=== PATIENT | male | born 1985 | race Two or more races ===

== ENCOUNTER 2017-11-02 10:15 | Emergency (ER) | payer MEDICAID ==
[2017-11-02] MEDS ORDERED: DIVALPROEX SODIUM 250 MG TABLET.DR PO ONE (10:59)
[2017-11-02] MEDS ORDERED: LORAZEPAM INJ 2 MG/1 ML VIAL IM ONE (11:21)
--- NOTE | 2017-11-02 11:48 | ER Document Report ---
ED General - General Chief Complaint: Psych Problem Stated Complaint: BEHAVIORAL ISSUES Time Seen by Provider: 11/02/17 10:35 Notes: Patient with history of mental retardation. Lives at an assisted living facility. Has become combative as of recent hitting himself in the head more frequently. Multiple contusions on face. Right periorbital contusions. Recently was stopped on his Depakote. Mother thought that he was oversedated. Since that time he has had increased amounts of outbursts. Patient is nonverbal. No other issues. No reported abnormalities with his vital signs her vital signs are very difficult to obtain in this patient. TRAVEL OUTSIDE OF THE [place] IN LAST 30 DAYS: No - Related Data Allergies/Adverse Reactions: No Known Allergies Allergy (Unverified 11/02/17 10:23) Home Medications: Current Home Medications Clonazepam 1 mg PO PRN PRN 11/02/17 [History] Clonazepam 1 mg PO QAM 11/02/17 [History] Hydroxyzine HCl 50 mg PO BID 11/02/17 [History] Oxcarbazepine [Trileptal Susp 300 mg/5 ml 250 ml/Bottle] 60 mg PO BID 11/02/17 [ History] Temazepam 30 mg PO PRN PRN 11/02/17 [History] Thioridazine HCl 100 mg PO TID 11/02/17 [History] Trazodone HCl 100 mg PO QAM 11/02/17 [History] Past Medical History - General Information source[facility], Outside Facility Records Cannot obtain history due to: Mentally challenged - Social History Smoking Status: Never Smoker Chew tobacco use (# tins/day): No Frequency of alcohol use: None Drug Abuse: None Family History: Reviewed & Not Pertinent Patient has suicidal ideation: No Patient has homicidal ideation: No Neurological Medical History: Reports: Hx Seizures Renal/ Medical History: Denies: Hx Peritoneal Dialysis Review of Systems - Review of Systems -: Yes ROS unobtainable due to patient's medical condition Physical Exam - Vital signs Vitals: Temp Pulse Resp BP Pulse Ox 97.7 F 110 H 24 H 110/84 100 11/02/17 10:27 11/02/17 10:27 11/02/17 10:27 11/02/17 10:27 11/02/17 10:27 Interpretation: Normal - General General appearance: Appears well, Alert Notes: Patient with obvious mental retardation. Screaming. Hitting himself in the face and head - HEENT Head: Other - Multiple contusions on the scalp. Large contusion on the right temporal scalp. Eyes: Periorbital ecchymosis Pupils: PERRL - Respiratory Respiratory status: No respiratory distress Chest status: Nontender Breath sounds: Normal Chest palpation: Normal - Cardiovascular Rhythm: Regular Heart sounds: Normal auscultation Murmur: No - Abdominal Inspection: Normal Distension: No distension Bowel sounds: Normal Tenderness: Nontender Organomegaly: No organomegaly - Back Back: Normal, Nontender - Extremities General upper extremity: Normal inspection, Nontender, Normal color, Normal ROM , Normal temperature General lower extremity: Normal inspection, Nontender, Normal color, Normal ROM , Normal temperature, Normal weight bearing. No: Gene's sign - Neurological Neuro grossly intact: Yes Cognition: Normal Gagan Coma Scale Eye Opening: Spontaneous - Psychological Associated symptoms: Normal affect, Normal mood - Skin Skin Temperature: Warm Skin Moisture: Dry Skin Color: Normal Course - Re-evaluation Re-evalutation: 11/02/17 11:48 Give him a dose of Ativan as well as Depakote at this time, CT head, reassess. 11/02/17 13:11 Patient coming down. No significant injuries seen on CT. Recommend they restart Depakote as previous. Will DC. - Vital Signs Vital signs: Temp Pulse Resp BP Pulse Ox 97.7 F 110 H 24 H 110/84 100 11/02/17 10:59 11/02/17 10:59 11/02/17 10:59 11/02/17 10:59 11/02/17 10:59 Discharge - Discharge Clinical Impression: Scalp contusion Qualifiers: Encounter type: initial encounter Qualified Code(s): S00.03XA - Contusion of scalp, initial encounter Ecchymosis of right eye Qualifiers: Encounter type: initial encounter Qualified Code(s): S05.11XA - Contusion of eyeball and orbital tissues, right eye, initial encounter Disposition: HOME-ASSISTED LIVING Instructions: Contusion ([facility]), Head Injury Precautions ([facility]) Additional Instructions: Please restart the Depakote as previous prescribed please follow-up with your neurologist. If symptoms get worse please return.
--- NOTE | 2017-11-02 12:32 | RADIOLOGY REPORT (SQ) ---
EXAM DESCRIPTION: CT HEAD WITHOUT COMPLETED DATE/TIME: 11/02/2017 12:05 pm REASON FOR STUDY: contussion, falls COMPARISON: None. TECHNIQUE: Axial images acquired through the brain without intravenous contrast. Images reviewed wi th bone, brain and subdural windows. Images stored on PACS. All CT scanners at this facility use dose modulation, iterative reconstruction, and/or weight based d osing when appropriate to reduce radiation dose to as low as reasonably achievable (ALARA). [facility]: Dose Right [facility]: CareDose [facility]: Dose Right [facility]: Teradose 4D [facility]: Smart [employer] RADIATION DOSE: CT Rad equipment meets quality standard of care and radiation dose reduction techniq ues were employed. CTDIvol: 64.6 mGy. DLP: 1421 mGy-cm. mGy. LIMITATIONS: None. FINDINGS: VENTRICLES: Normal size and contour. CEREBRUM: No masses. No hemorrhage. No midline shift. No evidence for acute infarction. Normal gra y/white matter differentiation. No areas of low density in the white matter. CEREBELLUM: No masses. No hemorrhage. No alteration of density. No evidence for acute infarction. EXTRAAXIAL SPACES: No fluid collections. No masses. ORBITS AND GLOBE: No intra- or extraconal masses. Normal contour of globe without masses. CALVARIUM: No fracture. PARANASAL SINUSES: No fluid or mucosal thickening. SOFT TISSUES: Right frontotemporal scalp hematoma. No underlying skull fracture or acute intracrania l hemorrhage. OTHER: No other significant finding. IMPRESSION: Right frontotemporal scalp hematoma. No underlying skull fracture or acute intracranial hemorrhage EVIDENCE OF ACUTE STROKE: NO. COMMENT: Quality ID # [id number]: Final reports with documentation of one or more dose reduction techniques (e.g., Automated exposure control, adjustment of the mA and/or kV according to patient size, use of iterative reconstruction technique) TECHNICAL DOCUMENTATION: JOB ID: [id number] [employer]- All Rights Reserved
[2017-11-02 13:25] VITALS: BP 116/74
== END 2017-11-02 13:50 | disposition home health service (06) ==
LOC: ER 10:15
DX: S00.03XA Contusion of scalp, initial encounter (principal); S05.11XA Contusion of eyeball and orbital tissues, right eye, initial encounter; F79 Unspecified intellectual disabilities; Z79.899 Other long term (current) drug therapy; W51.XXXA Accidental striking against or bumped into by another person, initial encounter
CPT/HCPCS: 99284; 96372; 70450; J2060; J3490

== ENCOUNTER → 2018-02-08 | Outpatient (CLI) | payer MEDICAID ==
[2018-02-08 08:59] LABS: HEMATOCRIT 42.7 % (37.9-51.0); HEMOGLOBIN 14.4 g/dL (13.5-17.0); MEAN CORPUSCULAR HEMOGLOBIN 28.2 pg (27.0-33.4); MEAN CORPUSCULAR HGB CONC 33.6 g/dL (32.0-36.0); MEAN CORPUSCULAR VOLUME 84 fl (80-97); PLATELET COUNT 221 10^3/uL (150-450); RED CELL DISTRIBUTION WIDTH 15.3 % (11.5-14.0); WHITE BLOOD COUNT 4.3 10^3/uL (4.0-10.5)
[2018-02-08 09:26] LABS: ALANINE AMINOTRANSFERASE 36 U/L (21-72); ALBUMIN 4.5 g/dL (3.5-5.0); ALKALINE PHOSPHATASE 85 U/L (38-126); ANION GAP 11 (5-19); ASPARTATE AMINO TRANSFERASE 29 U/L (17-59); BILIRUBIN,DIRECT 0.2 mg/dL (0.0-0.4); BILIRUBIN,TOTAL 0.2 mg/dL (0.2-1.3); BLOOD UREA NITROGEN 8 mg/dL (7-20); CALCIUM 10.1 mg/dL (8.4-10.2); CARBON DIOXIDE 30 mmol/L (22-30); CHLORIDE 97 mmol/L (98-107); CHOLESTEROL 137.47 mg/dL (0-200); GLUCOSE 89 mg/dL (75-110); POTASSIUM 4.9 mmol/L (3.6-5.0); SODIUM 137.5 mmol/L (137-145); TOTAL PROTEIN 7.9 g/dL (6.3-8.2); TRIGLYCERIDES 56 mg/dL (<150)
[2018-02-08 09:34] LABS: ABSOLUTE LYMPHOCYTES# (MANUAL) 1.2 10^3/uL (0.5-4.7); ABSOLUTE MONOCYTES # (MANUAL) 0.7 10^3/uL (0.1-1.4); ABSOLUTE NEUTROPHILS# (MANUAL) 2.3 10^3/uL (1.7-8.2); BASOPHILS % (MANUAL) 0 % (0-2); EOSINOPHILS % (MANUAL) 0 % (0-6); LYMPHOCYTES % (MANUAL) 27 % (13-45); MONOCYTES % (MANUAL) 17 % (3-13); OVALOCYTES 1+; PLATELET COMMENT ADEQUATE; POIKILOCYTOSIS 1+; POLYCHROMASIA SLIGHT; SEGMENTED NEUTROPHILS % (MAN) 54 % (42-78); TOTAL CELLS COUNTED 100; TOXIC GRANULATION SLIGHT; TOXIC VACUOLATION PRESENT
[2018-02-08 09:37] LABS: DIRECT LDL 38 mg/dL (<100)
== END ==
LOC: OD 08:19
PROVIDERS: ATTEND Physician Assistant
DX: F84.0 Autistic disorder (principal); Z79.899 Other long term (current) drug therapy
CPT/HCPCS: 36415; 80053; 80061; 80164; 83036; 85025

== ENCOUNTER 2018-03-05 08:57 | Emergency (ER) | payer MEDICAID ==
[2018-03-05] MEDS ORDERED: LIDOCAINE 1% INJ-PF (10 MG/ML) 30 ML SDV INJ ONE (09:17)
--- NOTE | 2018-03-05 09:24 | ER Document Report ---
ED Fall - General Chief Complaint: Fall Stated Complaint: FALL HEAD INJURY Time Seen by Provider: 03/05/18 09:11 Mode of Arrival: Ambulatory Information source: Outside Facility Records Cannot obtain history due to: Dementia, Mentally challenged TRAVEL OUTSIDE OF THE [place] IN LAST 30 DAYS: No - HPI Occurred: Just prior to arrival Where: Indoors, Other Context: Tripped Associated symptoms: None Location of injury/pain: Face Quality of pain: Achy Severity: Moderate Pain Level: 3 - Related data Allergies/Adverse Reactions: No Known Allergies Allergy (Unverified 11/02/17 10:23) Past Medical History - General Information source: Emergency Med Personnel Cannot obtain history due to: Dementia, Mentally challenged - Social History Smoking Status: Never Smoker Cigarette use (# per day): No Chew tobacco use (# tins/day): No Smoking Education Provided: No Frequency of alcohol use: None Drug Abuse: None Lives with: Other Family History: Reviewed & Not Pertinent Patient has suicidal ideation: No Patient has homicidal ideation: No - Past Medical History Cardiac Medical History: Reports: None Pulmonary Medical History: Reports: None EENT Medical History: Reports: None Neurological Medical History: Reports: Hx Seizures Endocrine Medical History: Reports: None Renal/ Medical History: Reports: None Malignancy Medical History: Reports None GI Medical History: Reports: None Musculoskeltal Medical History: Reports None Skin Medical History: Reports None Psychiatric Medical History: Reports: Hx Dementia Traumatic Medical History: Reports: None Infectious Medical History: Reports: None Surgical Hx: Negative Past Surgical History: Reports: None - Immunizations Immunizations up to date: Yes Hx Diphtheria, Pertussis, Tetanus Vaccination: Yes Review of Systems - Review of Systems Constitutional: No symptoms reported EENT: Nose pain - Bruised Cardiovascular: No symptoms reported Respiratory: No symptoms reported Gastrointestinal: No symptoms reported Genitourinary: No symptoms reported Male Genitourinary: No symptoms reported Musculoskeletal: No symptoms reported Skin: Other - Laceration above the left eyebrow Hematologic/Lymphatic: No symptoms reported Neurological/Psychological: Dementia, Other - Agitation which is his norm -: Yes All other systems reviewed and negative Physical Exam - Vital signs Vitals: Pulse Resp BP Pulse Ox 84 24 H 118/72 97 03/05/18 09:01 03/05/18 09:01 03/05/18 09:01 03/05/18 09:01 Interpretation: Normal - General General appearance: Appears well, Alert - HEENT Head: Atraumatic, Abrasions, Ecchymosis, Open wounds, Tenderness Eyes: Normal Pupils: PERRL Ears: Normal External canal: Normal Tympanic membrane: Normal Sinus: Normal Nasal: Swelling, Other - Bruise to the bridge of his nose no septal hematoma dried blood in his nose Mouth/Lips: Normal Mucous membranes: Normal Pharynx: Normal Neck: Normal - Respiratory Respiratory status: No respiratory distress Chest status: Nontender Breath sounds: Normal Chest palpation: Normal - Cardiovascular Rhythm: Regular Heart sounds: Normal auscultation Murmur: No - Abdominal Inspection: Normal Distension: No distension Bowel sounds: Normal Tenderness: Nontender Organomegaly: No organomegaly - Back Back: Normal, Nontender - Extremities General upper extremity: Normal inspection, Nontender, Normal color, Normal ROM , Normal temperature General lower extremity: Normal inspection, Nontender, Normal color, Normal ROM , Normal temperature, Normal weight bearing. No: Gene's sign - Neurological Neuro grossly intact: Yes Cognition: Normal Orientation: AAOx4 Boyds Coma Scale Eye Opening: Spontaneous Boyds Coma Scale Verbal: Oriented Gagan Coma Scale Motor: Obeys Commands Gagan Coma Scale Total: 15 Speech: Normal Motor strength normal: LUE, RUE, LLE, RLE Sensory: Normal - Psychological Associated symptoms: Normal affect, Normal mood - Skin Skin Temperature: Warm Skin Moisture: Dry Skin Color: Normal Skin irregularity: Laceration - Above left eyebrow Course - Vital Signs Vital signs: Temp Pulse Resp BP Pulse Ox 84 24 H 118/72 97 03/05/18 09:01 03/05/18 09:01 03/05/18 09:01 03/05/18 09:01
[2018-03-05] MEDS ORDERED: LORAZEPAM INJ 2 MG/1 ML VIAL IM ONE (09:35)
[2018-03-05] MEDS ORDERED: DIPHENHYDRAMINE HCL 50 MG/ML VIAL IM ONE (09:35)
--- NOTE | 2018-03-05 09:38 | ER Document Report ---
ED Medical Screen (RME) - General Chief Complaint: Fall Stated Complaint: FALL HEAD INJURY Time Seen by Provider: 03/05/18 09:11 Mode of Arrival: Ambulatory Information source: Outside Facility Records Cannot obtain history due to: Dementia, Mentally challenged Notes: 32-year-old male presented to ED for fall with laceration above the left eyebrow bruising to the nose swelling to the bridge of the nose. Caregiver states that he is acting the same as he always does he is alert very confused very agitated thrashing out. Abrasion to the left knee. Attempted CT of neck and face without success will need sedation to have CT completed I have greeted and performed a rapid initial assessment of this patient. A comprehensive ED assessment and evaluation of the patient, analysis of test results and completion of medical decision making process will be conducted by an additional ED providers. TRAVEL OUTSIDE OF THE [place] IN LAST 30 DAYS: No - Related Data Allergies/Adverse Reactions: No Known Allergies Allergy (Unverified 11/02/17 10:23) Past Medical History Neurological Medical History: Reports: Hx Seizures Renal/ Medical History: Denies: Hx Peritoneal Dialysis Physical Exam - Vital signs Vitals: Pulse Resp BP Pulse Ox 84 24 H 118/72 97 03/05/18 09:01 03/05/18 09:01 03/05/18 09:01 03/05/18 09:01 Course - Vital Signs Vital signs: Temp Pulse Resp BP Pulse Ox 84 24 H 118/72 97 03/05/18 09:01 03/05/18 09:01 03/05/18 09:01 03/05/18 09:01
[2018-03-05] MEDS ORDERED: HALOPERIDOL LACTATE INJ 5 MG/1 ML VIAL IM ONE (10:17)
[2018-03-05] MEDS ORDERED: DIAZEPAM INJ 10 MG/2 ML DISP.SYRIN IM ONE (11:01)
--- NOTE | 2018-03-05 11:04 | ER Document Report ---
ED General - General Chief Complaint: Fall Stated Complaint: FALL HEAD INJURY Time Seen by Provider: 03/05/18 09:11 Mode of Arrival: Ambulatory Information source: Patient, Friend - Caregivers Cannot obtain history due to: Mentally challenged Notes: 32-year-old male history of mental retardation care facility with concerns of a fall. Patient noted to have a laceration to the left upper face. Per caregivers tetanus is up-to-date no other concerns TRAVEL OUTSIDE OF THE [place] IN LAST 30 DAYS: No - HPI Onset: Just prior to arrival Onset/Duration: Sudden Quality of pain: No pain Severity: Mild Pain Level: Denies Associated symptoms: Other Exacerbated by: Denies Relieved by: Denies Similar symptoms previously: No Recently seen / treated by doctor: No - Related Data Allergies/Adverse Reactions: No Known Allergies Allergy (Unverified 11/02/17 10:23) Past Medical History - General Information source: Outside Facility Records Cannot obtain history due to: Mentally challenged - Social History Smoking Status: Never Smoker Cigarette use (# per day): No Chew tobacco use (# tins/day): No Smoking Education Provided: No Family History: Reviewed & Not Pertinent Patient has suicidal ideation: No Patient has homicidal ideation: No Neurological Medical History: Reports: Hx Seizures Renal/ Medical History: Denies: Hx Peritoneal Dialysis Review of Systems - Review of Systems Notes: PHYSICAL EXAMINATION: GENERAL: Well-appearing, well-nourished and in no acute distress. HEAD: Left supraorbital laceration EYES: Pupils equal round and reactive to light, extraocular movements intact, sclera anicteric, conjunctiva are normal. ENT: Nares patent, oropharynx clear without exudates. Moist mucous membranes. NECK: Normal range of motion, supple without lymphadenopathy LUNGS: Breath sounds clear to auscultation bilaterally and equal. No wheezes rales or rhonchi. HEART: Regular rate and rhythm without murmurs ABDOMEN: Soft, nontender, nondistended abdomen. No guarding, no rebound. No masses appreciated. Musculoskeletal: Normal range of motion, no pitting or edema. No cyanosis. NEUROLOGICAL: Baseline mentation PSYCH: Baseline agitation SKIN: 5 cm laceration with hematoma over the left frontal supraorbital region -: Yes ROS unobtainable due to patient's medical condition Physical Exam - Vital signs Vitals: Pulse Resp BP Pulse Ox 84 24 H 118/72 97 03/05/18 09:01 03/05/18 09:01 03/05/18 09:01 03/05/18 09:01 Course - Re-evaluation Re-evalutation: 03/05/18 11:01 Is still difficult to calm the patient down, he is starting to become little more drowsy but caregiver has to hold him down, I will give further medications to help sedate him 03/05/18 11:33 I am unable to sedate the patient we will do conscious sedation 03/05/18 15:44 Patient was actually able to be sedated with medication, CT noted only chronic changes, the laceration was repaired with Dermabond After performing a Medical Screening Examination, I estimate there is LOW risk for OPEN FRACTURE, COMPARTMENT SYNDROME, TENDON RUPTURE, ACUTE NEUROVASCULAR INJURY, or RETAINED FOREIGN BODY, thus I consider the discharge disposition reasonable. Also, there is no evidence or peritonitis, sepsis, or toxicity. I have reevaluated this patient multiple times and no significant life threatening changes are noted. The patients caregiver and I have discussed the diagnosis and risks, and we agree with discharging home with close follow-up with the understanding that symptoms and presentations can change. We also discussed returning to the Emergency Department immediately if new or worsening symptoms occur. We have discussed the symptoms which are most concerning (e.g., changing or worsening pain, fever, numbness, weakness, cool or painful digits) that necessitate immediate return. 03/05/18 15:45 - Vital Signs Vital signs: Temp Pulse Resp BP Pulse Ox 84 14 109/78 100 03/05/18 09:01 03/05/18 14:01 03/05/18 14:01 03/05/18 12:01 - Diagnostic Test Radiology reviewed: Image reviewed - CT head without contrast notes no acute changes, Reports reviewed Procedures - Laceration/Wound Repair Left Face Time completed: 15:00 Wound length (cm): 5 Wound's Depth, Shape: Superficial Laceration pre-procedure: Sterile PPE donned, Sterile drapes applied Wound explored: Clean, No foreign body removed Wound Debrided: Minimal Wound Repaired With: Dermabond Post-procedure wound care: Sterile dressing applied Post-procedure NV exam normal: Yes Complications: No Discharge - Discharge Clinical Impression: left forehead laceration Facial injury Qualifiers: Encounter type: initial encounter Qualified Code(s): S09.93XA - Unspecified injury of face, initial encounter Condition: Stable Disposition: HOME, SELF-CARE Additional Instructions: Please return immediately if there is any sign of infection or any other concerns Referrals: CODY POTTER MD [Primary Care Provider] - Follow up as needed
[2018-03-05] MEDS ORDERED: PROPOFOL INJ 200 MG/20 ML VIAL IV ONE (11:33)
--- NOTE | 2018-03-05 13:02 | RADIOLOGY REPORT (SQ) ---
EXAM DESCRIPTION: CT FACIAL AREA WITHOUT COMPLETED DATE/TIME: 03/05/2018 12:36 pm REASON FOR STUDY: fall hit face COMPARISON: None. TECHNIQUE: Noncontrasted images through the facial bones and orbits windowed for bone and soft tissu e. Additional coronal and sagittal reconstructed images reviewed. All images stored on PACS. All CT scanners at this facility use dose modulation, iterative reconstruction, and/or weight based d osing when appropriate to reduce radiation dose to as low as reasonably achievable (ALARA). [facility]: Dose Right [facility]: CareDose [facility]: Dose Right [facility]: Teradose 4D [facility]: [employer] RADIATION DOSE: 566.2mGy. LIMITATIONS: None. FINDINGS: FACIAL BONES: Old posttraumatic deformity of the nasal bones. No acute fracture identifie d. ORBITS: Intact. No fracture. Symmetric intact globes and retroorbital soft tissues. PARANASAL SINUSES: Clear. No significant mucosal thickening, mass or fluid. No nasal polyps. Maxill brandy sinus outlets are patent. SOFT TISSUES: Small submental nodes noted. INFERIOR BRAIN: Limited view. No acute findings. OTHER: There is a bone density projected the lateral to the body of the mandible on the left which co uld represent old posttraumatic change or exostosis. IMPRESSION: Exostosis versus old posttraumatic deformity from body of left mandible. Otherwise, nor mal CT of the facial bones. TECHNICAL DOCUMENTATION: JOB ID: [id number] Quality ID # [id number]: Final reports with documentation of one or more dose reduction techniques (e.g., Au tomated exposure control, adjustment of the mA and/or kV according to patient size, use of iterative reconstruction technique) 2010 [employer]- All Rights Reserved Reading location - IP/workstation name: [email or web address]
--- NOTE | 2018-03-05 13:08 | RADIOLOGY REPORT (SQ) ---
EXAM DESCRIPTION: CT CERVICAL SPINE WITHOUT COMPLETED DATE/TIME: 03/05/2018 12:36 pm REASON FOR STUDY: fall COMPARISON: None. TECHNIQUE: Axial images acquired through the cervical spine without intravenous contrast. Images re viewed with lung, soft tissue and bone windows. Reconstructed coronal and sagittal MPR images review ed. Images stored on PACS. All CT scanners at this facility use dose modulation, iterative reconstruction, and/or weight based d osing when appropriate to reduce radiation dose to as low as reasonably achievable (ALARA). [facility]: Dose Right [facility]: CareDose [facility]: Dose Right [facility]: Teradose 4D [facility]: [employer] RADIATION DOSE: 532.3mGy. LIMITATIONS: None. FINDINGS: VERTEBRAL BODIES: Cervical spondylosis that C5-6. Otherwise no significant abnormality se en. No cervical fracture identified. DISCS: No significant disc disease. FACETS, LATERAL MASSES, POSTERIOR ELEMENTS: No fractures. No dislocation. No acute findings. HARDWARE: None in the spine. VISUALIZED RIBS: No fractures. LUNG APICES AND SOFT TISSUES: Minimal fibrotic scarring in right lung apex. OTHER: Small nonenlarged cervical nodes. . IMPRESSION: Cervical spondylosis at C5-6. Otherwise, no cervical fractures seen. TECHNICAL DOCUMENTATION: JOB ID: [id number] Quality ID # [id number]: Final reports with documentation of one or more dose reduction techniques (e.g., Au tomated exposure control, adjustment of the mA and/or kV according to patient size, use of iterative reconstruction technique) 2010 [employer]- All Rights Reserved Reading location - IP/workstation name: [email or web address]
[2018-03-05 14:03] VITALS: BP 109/78
== END 2018-03-05 14:20 | disposition home or self-care (01) ==
LOC: ER 08:57
PROC: 0HQ1XZZ Repair Face Skin, External Approach (ICD-10-PCS; principal; 2018-03-05)
DX: S01.81XA Laceration without foreign body of other part of head, initial encounter (principal); W19.XXXA Unspecified fall, initial encounter
CPT/HCPCS: 99284; 96372; 96374; 70486; 72125; 12013; J3360; J1200; J1630; J3490; J2060

== ENCOUNTER 2018-03-05 23:53 | Emergency (ER) | payer MEDICAID ==
[2018-03-06 00:19] VITALS: BP 117/91
--- NOTE | 2018-03-06 02:29 | ER Document Report ---
ED General - General Chief Complaint: Fall Stated Complaint: FALL Time Seen by Provider: 03/06/18 01:30 Cannot obtain history due to: Mentally challenged Notes: Patient is a 32-year-old male with past medical history of significant developmental delay and nonverbal status at baseline who presents with staffing concern at the [facility] that he was bleeding from the laceration over his left eyebrow and seemed to be somewhat more agitated tonight than normal. He was seen in the emergency department earlier today after a fall from standing in which she sustained head trauma and a laceration with an associated hematoma over his left forehead. Staff at the facility notes that he has not had any vomiting, apparent difficulty walking, or any major change from baseline behavior other than that he has seems somewhat more restless. He does not take any form of anticoagulation. History is otherwise limited as the patient is nonverbal at baseline. TRAVEL OUTSIDE OF THE [place] IN LAST 30 DAYS: No - Related Data Allergies/Adverse Reactions: No Known Allergies Allergy (Verified 03/05/18 23:54) Past Medical History - General Information source: Legal Guardian Cannot obtain history due to: Mentally challenged - Social History Smoking Status: Never Smoker Frequency of alcohol use: None Drug Abuse: None Lives with: Other - intermediate Family History: Reviewed & Not Pertinent Neurological Medical History: Reports: Hx Seizures Renal/ Medical History: Denies: Hx Peritoneal Dialysis Review of Systems - Review of Systems -: Yes ROS unobtainable due to patient's medical condition Physical Exam - Vital signs Vitals: Pulse Resp BP Pulse Ox 66 22 H 117/91 H 100 03/06/18 00:10 03/06/18 00:10 03/06/18 00:10 03/06/18 00:10 Interpretation: Normal Notes: PHYSICAL EXAMINATION: GENERAL: In no distress, walking around the room HEAD: Small amount of swelling to the left forehead with traumatic ecchymosis over the lateral left eyebrow EYES: Pupils equal round and reactive to light, extraocular movements intact, sclera anicteric, conjunctiva are normal. ENT: nares patent, no oral pharyngeal trauma. No hemotympanum, no Walden's sign , no raccoon eyes. NECK: No midline cervical spine tenderness. LUNGS: Breath sounds clear to auscultation bilaterally and equal. No wheezes rales or rhonchi. HEART: Regular rate and rhythm without murmurs. CHEST WALL: No ecchymosis over the chest wall. ABDOMEN: Soft, nontender, normoactive bowel sounds. No guarding, no rebound. No abdominal bruising EXTREMITIES: No long bone deformities. BACK: No midline spinal tenderness, step-offs, or deformities. NEUROLOGICAL: Ambulate around the room without any apparent difficulty. Moves all extremities spontaneously without any apparent neurologic deficit. PSYCH: Significant cognitive impairment at baseline. Nonverbal. SKIN: Warm, Dry, normal turgor, hematoma with associated abrasion of the left eyebrow as above Course - Re-evaluation Re-evalutation: 03/06/18 02:26 Patient presents with concerns of some agitation at his [facility] as well as some mild amount of bleeding from the laceration over his left eyebrow. The staff notes that he is otherwise been acting at his norm, no focal neurologic deficits., Continues to walk around like his normal. He was seen in the emergency room and earlier today had a CT of his face and cervical spine which did not show any acute findings although no CT of the head was obtained. The patient does not require CT of the brain as clinically he does not have any signs or symptoms to indicate an intracranial bleed. I suspect that the patient may have a concussion from a headache although he is noncommunicative and unable to provide history. He has been given Tylenol here and will be discharged back to his [facility] with instructions to provide Tylenol as needed for apparent discomfort and follow-up with his primary doctor. At this time will discharge with return precautions and follow-up recommendations. Verbal discharge instructions given a the bedside and opportunity for questions given. Medication warnings reviewed. Guardian is in agreement with this plan and has verbalized understanding of return precautions and the need for primary care follow-up in the next 24-72 hours. - Vital Signs Vital signs: Temp Pulse Resp BP Pulse Ox 66 22 H 117/91 H 100 03/06/18 00:10 03/06/18 00:10 03/06/18 00:10 03/06/18 00:10 Discharge - Discharge Clinical Impression: Agitation Facial laceration Qualifiers: Encounter type: initial encounter Qualified Code(s): S01.81XA - Laceration without foreign body of other part of head, initial encounter Fall Qualifiers: Encounter type: initial encounter Qualified Code(s): W19.XXXA - Unspecified fall, initial encounter Condition: Good Disposition: HOME, SELF-CARE Additional Instructions: You may give the patient 975 mg of Tylenol every 6 hours as needed for discomfort. Return if he has persistent vomiting, change in behavior, apparent localized weakness or numbness, or any other symptoms that are worrisome to you. Referrals: CODY POTTER MD [Primary Care Provider] - Follow up as needed
[2018-03-06] MEDS ORDERED: ACETAMINOPHEN 325 MG TABLET PO ONE (02:30)
== END 2018-03-06 03:07 | disposition home or self-care (01) ==
LOC: ER 23:53
DX: S01.112A Laceration without foreign body of left eyelid and periocular area, initial encounter (principal); R45.1 Restlessness and agitation; R62.50 Unspecified lack of expected normal physiological development in childhood; W19.XXXA Unspecified fall, initial encounter
CPT/HCPCS: 99283; J3490

== ENCOUNTER 2018-03-07 20:36 | Inpatient (IN) | payer MEDICAID ==
[2018-03-07] MEDS ORDERED: NORMAL SALINE 1000 ML 1,000 ML IV ONE ×2 (21:28→22:56)
[2018-03-07] MEDS ORDERED: LIDOCAINE 1% INJ-PF (10 MG/ML) 30 ML SDV INJ ONE (21:28)
[2018-03-07 22:17] LABS: ABSOLUTE LYMPHOCYTES (AUTO) 0.9 10^3/uL (0.5-4.7); ABSOLUTE MONOCYTES (AUTO) 0.7 10^3/uL (0.1-1.4); ABSOLUTE NEUT (AUTO) 2.7 10^3/uL (1.7-8.2); BASOPHILS % (AUTO) 0.1 % (0-2); EOSINOPHILS % (AUTO) 0.6 % (0-6); HEMATOCRIT 39.1 % (37.9-51.0); LYMPHOCYTES % (AUTO) 19.9 % (13-45); MEAN CORPUSCULAR HEMOGLOBIN 28.1 pg (27.0-33.4); MEAN CORPUSCULAR HGB CONC 33.2 g/dL (32.0-36.0); MEAN CORPUSCULAR VOLUME 85 fl (80-97); MONOCYTES % (AUTO) 16.9 % (3-13); PLATELET COUNT 199 10^3/uL (150-450); RED BLOOD COUNT 4.62 10^6/uL (4.35-5.55); RED CELL DISTRIBUTION WIDTH 15.6 % (11.5-14.0); SEGMENTED NEUTROPHILS % (AUTO) 62.5 % (42-78); TOTAL CELLS COUNTED % (AUTO) 100 %; WHITE BLOOD COUNT 4.4 10^3/uL (4.0-10.5)
[2018-03-07 22:23] LABS: INTERNATIONAL RATION (INR) 0.94
--- NOTE | 2018-03-07 22:26 | RADIOLOGY REPORT (SQ) ---
EXAM DESCRIPTION: CT HEAD WITHOUT COMPLETED DATE/TIME: 03/07/2018 9:58 pm REASON FOR STUDY: ms change COMPARISON: 2017. TECHNIQUE: Axial images acquired through the brain without intravenous contrast. Images reviewed wi th bone, brain and subdural windows. Additional sagittal and coronal reconstructions were generated. Images stored on PACS. All CT scanners at this facility use dose modulation, iterative reconstruction, and/or weight based d osing when appropriate to reduce radiation dose to as low as reasonably achievable (ALARA). [facility]: Dose Right [facility]: CareDose [facility]: Dose Right [facility]: Teradose 4D [facility]: Vinfolio RADIATION DOSE: mGy. LIMITATIONS: None. FINDINGS: VENTRICLES: Normal size and contour. CEREBRUM: No masses. No hemorrhage. No midline shift. No evidence for acute infarction. Normal gra y/white matter differentiation. No areas of low density in the white matter. CEREBELLUM: No masses. No hemorrhage. No alteration of density. No evidence for acute infarction. EXTRAAXIAL SPACES: No fluid collections. No masses. ORBITS AND GLOBE: No intra- or extraconal masses. Normal contour of globe without masses. CALVARIUM: No fracture. PARANASAL SINUSES: No fluid or mucosal thickening. SOFT TISSUES: Right scalp soft tissue swelling. No drainable collections. OTHER: No other significant finding. IMPRESSION: Soft tissue swelling. No acute intracranial abnormality. EVIDENCE OF ACUTE STROKE: NO. COMMENT: Quality ID # [id number]: Final reports with documentation of one or more dose reduction techniques (e.g., Automated exposure control, adjustment of the mA and/or kV according to patient size, use of iterative reconstruction technique) TECHNICAL DOCUMENTATION: JOB ID: [id number] [employer]- All Rights Reserved Reading location - IP/workstation name: [email or web address]
[2018-03-07 22:34] LABS: ALANINE AMINOTRANSFERASE 80 U/L (21-72); ALBUMIN 4.1 g/dL (3.5-5.0); ALKALINE PHOSPHATASE 76 U/L (38-126); ANION GAP 8 (5-19); ASPARTATE AMINO TRANSFERASE 96 U/L (17-59); BILIRUBIN,DIRECT 0.1 mg/dL (0.0-0.4); BILIRUBIN,TOTAL 0.1 mg/dL (0.2-1.3); BLOOD UREA NITROGEN 10 mg/dL (7-20); CALCIUM 10.6 mg/dL (8.4-10.2); CARBON DIOXIDE 36 mmol/L (22-30); CHLORIDE 101 mmol/L (98-107); CREATINE KINASE 1147 U/L (55-170); GLUCOSE 105 mg/dL (75-110); POTASSIUM 4.4 mmol/L (3.6-5.0); SODIUM 144.7 mmol/L (137-145); TOTAL PROTEIN 7.2 g/dL (6.3-8.2)
--- NOTE | 2018-03-07 22:45 | ER Document Report ---
ED General - General Chief Complaint: Rectal Bleeding Stated Complaint: RECTAL BLEEDING Time Seen by Provider: 03/07/18 21:25 Information source: Outside Facility Records TRAVEL OUTSIDE OF THE [place] IN LAST 30 DAYS: No - HPI Patient complains to provider of: bleeding from rectum Onset: Just prior to arrival Similar symptoms previously: No Recently seen / treated by doctor: Yes - here this past wednesday for falls Notes: Patient is brought in from the nursing home where he resides for rectal bleeding.After extensive discussion with the nursing home workers he also has a mental status change. Patient has severe developmental delay at baseline and is nonverbal, behaviorally challenged with aggressive behavior at times as well as self mutilation. Patient was seen here on March 05 and for falls with laceration over his left eyebrow which was repaired with Dermabond. CT was of the head was negative for any acute findings. Patient was combative and behaviorally challenged during both of those hospital stays.According to the nursing home workers the patient has become very somnolent over the last few days. On Wednesday he was ambulatory but not quite himself and he slept most of the day. Today he did get up and feed himself a little bit of breakfast but then he laid in bed all day. He has not been ambulatory since Wednesday.They do state that he fell down multiple times on Wednesday. They state that falling is usually not his norm and he is usually able to ambulate, feed himself and do activities of daily living without difficulty. They state that he is nonverbal at baseline. - Related Data Allergies/Adverse Reactions: No Known Allergies Allergy (Verified 03/05/18 23:54) Past Medical History - General Information source: Outside Facility Records - Social History Smoking Status: Unknown if Ever Smoked Chew tobacco use (# tins/day): No Frequency of alcohol use: None Drug Abuse: None Lives with: Other - [facility] Family History: Reviewed & Not Pertinent Patient has suicidal ideation: No Patient has homicidal ideation: No - Past Medical History Cardiac Medical History: Reports: None EENT Medical History: Reports: None Neurological Medical History: Reports: Hx Seizures Endocrine Medical History: Reports: None Renal/ Medical History: Reports: None. Denies: Hx Peritoneal Dialysis GI Medical History: Reports: None Psychiatric Medical History: Reports: Other - History of self abuse Past Surgical History: Reports: None Review of Systems - Review of Systems -: Yes ROS unobtainable due to patient's medical condition Physical Exam - Vital signs Vitals: Resp 13 03/07/18 20:46 - Notes Notes: PHYSICAL EXAMINATION: GENERAL:Patient is lying in the bed not interacting. HEAD: Patient has A laceration over his left eyebrow which has Dermabond. There is no signs or symptoms of infection. EYES: Pupils are equal Reactive but sluggish to light 4-3 mm.No scleral icterus. ENT: Nares patent. Moist mucous membranes. Poor dentition. + gag reflex. NECK: Normal range of motion, supple without lymphadenopathy LUNGS: Breath sounds clear to auscultation bilaterally and equal. No wheezes rales or rhonchi. HEART: Regular rate and rhythm without murmurs ABDOMEN: Soft, nontender, nondistended abdomen. No guarding, no rebound. No masses appreciated. Musculoskeletal: No cyanosis. NEUROLOGICAL: Patient is non-verbal at baseline. He does withdraw from painful stimuli. He opens his eyes spontaneously but not to verbal command. SKIN: Warm, Dry, normal turgor, no rashes noted. Patient found to have 2 cm V- shaped laceration just posterior to his anus.The anus and the sphincter are not involved.Bleeding is controlled. Course - Re-evaluation Re-evalutation: 03/08/18 00:12 Labs- All tests 24 hr 03/07/18 03/07/18 03/07/18 20:51 20:51 20:51 WBC 4.4 RBC 4.62 Hgb 13.0 L Hct 39.1 MCV 85 MCH 28.1 MCHC 33.2 RDW 15.6 H Plt Count 199 Seg Neutrophils % 62.5 Lymphocytes % 19.9 Monocytes % 16.9 H Eosinophils % 0.6 Basophils % 0.1 Absolute Neutrophils 2.7 Absolute Lymphocytes 0.9 Absolute Monocytes 0.7 Absolute Eosinophils 0.0 Absolute Basophils 0.0 PT 13.0 INR 0.94 Sodium 144.7 Potassium 4.4 Chloride 101 Carbon Dioxide 36 H Anion Gap 8 BUN 10 Creatinine 0.53 Est GFR ( Amer) > 60 Est GFR (Non-Af Amer) > 60 Glucose 105 Lactic Acid Calcium 10.6 H Magnesium 1.8 Total Bilirubin 0.1 L Direct Bilirubin 0.1 Neonat Total Bilirubin Not Reportable Neonat Direct Bilirubin Not Reportable Neonat Indirect Bili Not Reportable AST 96 H ALT 80 H Alkaline Phosphatase 76 Creatine Kinase 1147 H Troponin I Total Protein 7.2 Albumin 4.1 Urine Color Urine Appearance Urine pH Ur Specific [place] Urine Protein Urine Glucose (UA) Urine Ketones Urine Blood Urine Nitrite Urine Bilirubin Urine Urobilinogen Ur Leukocyte Esterase Urine WBC (Auto) Urine RBC (Auto) U Hyaline Cast (Auto) Urine Mucus (Auto) Urine Ascorbic Acid CSF Glucose CSF Total Protein Valproic Acid 65.5 Serum Alcohol 03/07/18 03/07/18 03/07/18 20:51 20:51 22:00 WBC RBC Hgb Hct MCV MCH MCHC RDW Plt Count Seg Neutrophils % Lymphocytes % Monocytes % Eosinophils % Basophils % Absolute Neutrophils Absolute Lymphocytes Absolute Monocytes Absolute Eosinophils Absolute Basophils PT INR Sodium Potassium Chloride Carbon Dioxide Anion Gap BUN Creatinine Est GFR ( Amer) Est GFR (Non-Af Amer) Glucose Lactic Acid 0.9 Calcium Magnesium Total Bilirubin Direct Bilirubin Neonat Total Bilirubin Neonat Direct Bilirubin Neonat Indirect Bili AST ALT Alkaline Phosphatase Creatine Kinase Troponin I < 0.012 Total Protein Albumin Urine Color Urine Appearance Urine pH Ur Specific [place] Urine Protein Urine Glucose (UA) Urine Ketones Urine Blood Urine Nitrite Urine Bilirubin Urine Urobilinogen Ur Leukocyte Esterase Urine WBC (Auto) Urine RBC (Auto) U Hyaline Cast (Auto) Urine Mucus (Auto) Urine Ascorbic Acid CSF Glucose CSF Total Protein Valproic Acid Serum Alcohol < 10 03/07/18 03/07/18 23:02 23:25 WBC RBC Hgb Hct MCV MCH MCHC RDW Plt Count Seg Neutrophils % Lymphocytes % Monocytes % Eosinophils % Basophils % Absolute Neutrophils Absolute Lymphocytes Absolute Monocytes Absolute Eosinophils Absolute Basophils PT INR Sodium Potassium Chloride Carbon Dioxide Anion Gap BUN Creatinine Est GFR ( Amer) Est GFR (Non-Af Amer) Glucose Lactic Acid Calcium Magnesium Total Bilirubin Direct Bilirubin Neonat Total Bilirubin Neonat Direct Bilirubin Neonat Indirect Bili AST ALT Alkaline Phosphatase Creatine Kinase Troponin I Total Protein Albumin Urine Color YELLOW Urine Appearance CLEAR Urine pH 6.0 Ur Specific [place] 1.024 Urine Protein NEGATIVE Urine Glucose (UA) NEGATIVE Urine Ketones NEGATIVE Urine Blood NEGATIVE Urine Nitrite NEGATIVE Urine Bilirubin NEGATIVE Urine Urobilinogen 2.0 H Ur Leukocyte Esterase NEGATIVE Urine WBC (Auto) 1 Urine RBC (Auto) 0 U Hyaline Cast (Auto) 5 Urine Mucus (Auto) RARE Urine Ascorbic Acid 20 H CSF Glucose 66 CSF Total Protein 38 Valproic Acid Serum Alcohol Chest X-Ray 05/14/18 21:26 IMPRESSION: LOW LUNG VOLUMES. NO SIGNIFICANT RADIOGRAPHIC FINDING IN THE CHEST. Head CT 03/07/18 21:28 IMPRESSION: Soft tissue swelling. No acute intracranial abnormality. EVIDENCE OF ACUTE STROKE: NO. 03/08/18 00:35 Patient now has bradycardia in the 50s with hypotension in the 70s. He is also hypothermic. At this point I am going to go ahead and give him some dexamethasone. 03/08/18 00:[address] knox 03/08/18 01:14 Blood gas did improve slightly at 7.3 for now and the CO2 was slightly decreased. Patient is tolerating BiPAP. He is on dopamine and will be admitted to the ICU.I did discuss the case with Dr. Parminder Peña. The patient is already admitted and I did call Dr. Gotti twice to discuss the patient's care. The patient did receive dexamethasone in case he has renal insufficiency in light of the fact that he had hypothermia bradycardia and hypotension. - Vital Signs Vital signs: Temp Pulse Resp BP Pulse Ox 97.7 F 60 12 87/55 L 96 03/09/18 22:32 03/09/18 20:00 03/09/18 22:32 03/09/18 22:32 03/09/18 22:32 - Laboratory Result Diagrams: 03/09/18 03:53 03/09/18 03:53 Laboratory results interpreted by me: 03/07/18 03/07/18 03/07/18 20:51 20:51 23:02 Hgb 13.0 L RDW 15.6 H Monocytes % 16.9 H Carbonic Acid ABG pH ABG pCO2 ABG HCO3 ABG Total CO2 Carbon Dioxide 36 H Calcium 10.6 H Total Bilirubin 0.1 L AST 96 H ALT 80 H Creatine Kinase 1147 H Urine Urobilinogen 2.0 H Urine Ascorbic Acid 20 H 03/07/18 23:45 Hgb RDW Monocytes % Carbonic Acid 1.95 H ABG pH 7.30 L ABG pCO2 64.8 H ABG HCO3 31.2 H ABG Total CO2 33.2 H Carbon Dioxide Calcium Total Bilirubin AST ALT Creatine Kinase Urine Urobilinogen Urine Ascorbic Acid - Diagnostic Test Radiology reviewed: Image reviewed - EKG Interpretation by Oh EKG shows normal: Sinus rhythm - 61bpm VA 135 IVCD When compared to previous EKG there are: Previous EKG unavailable Procedures - Laceration/Wound Repair Rectal Wound length (cm): 8 Wound's Depth, Shape: Superficial Laceration pre-procedure: Chloraprep applied Anesthetic type: 1% Lidocaine Volume Anesthetic (mLs): 4 Wound explored: Clean, No foreign body removed Irrigated w/ Saline (mLs): 500 Wound Repaired With: Sutures Suture Size/Type: 4:0, Ethilon Number of Sutures: 5 Layer Closure?: No Post-procedure NV exam normal: Yes - Good rectal tone status post laceration repair Complications: No Notes: 03/07/18 22:53 Patient remained calm and quiet while the laceration repair was done. He did squeeze his buttocks together when I was injecting the area with lidocaine. - Lumbar Puncture Lumbar puncture Time completed: 23:15 Consent obtained: Yes - phone consent by mom Lumbar puncture pre-procedure: Chloraprep applied, Sterile drapes applied Patient position: Lying Needle size: 22 Anesthetic type: 1% Lidocaine mL's of anesthetic: 3 Amount/type of drainage: clear Number of attempts: 2 Complications: No - Additional Procedures ABG Additional Procedures: ABG Notes: 03/07/18 23:49 Right radial area prepped with betadine. Neg Armin's test. Radial artery accessed. 0.5 cc blood obtained (not enough for testing). Pressure held for 5 minutes and bandage placed. Left radial area prepped with betadine. Negative Armin's test.guage needle introduced to left radial artery and 1.5 cc blood obtained. Pressure held for 5 minutes and bandage placed. Critical Care Note - Critical Care Note Total time excluding time spent on procedures (mins): 60 Comments: 60 minutes of critical care time spent in direct contact evaluating and reevaluating the patient, treating symptoms, reviewing labs and studies and speaking with family and consultants excluding any procedures Discharge - Discharge Clinical Impression: Mental status change, Laceration of rectum, initial encounter, Hypercarbia Hypothermia Qualifiers: Encounter type: initial encounter Qualified Code(s): T68.XXXA - Hypothermia, initial encounter Hypotension Qualifiers: Hypotension type: unspecified hypotension type Qualified Code(s): I95.9 - Hypotension, unspecified Condition: Serious Disposition: ADMITTED INPATIENT Admitting Provider: [facility] Unit Admitted: ICU
--- NOTE | 2018-03-07 22:46 | RADIOLOGY REPORT (SQ) ---
EXAM DESCRIPTION: CHEST SINGLE VIEW COMPLETED DATE/TIME: 03/07/2018 9:43 pm REASON FOR STUDY: ms change COMPARISON: None. NUMBER OF VIEWS: One view. TECHNIQUE: Single frontal radiographic view of the chest acquired. LIMITATIONS: None. FINDINGS: LUNGS AND PLEURA: Low lung volumes. No opacities, masses or pneumothorax. No pleural eff usion. MEDIASTINUM AND HILAR STRUCTURES: No masses. No contour abnormality. HEART AND VASCULAR STRUCTURES: Normal size. No evidence for failure. BONES: No acute findings. HARDWARE: None in the chest. OTHER: No other significant finding. IMPRESSION: LOW LUNG VOLUMES. NO SIGNIFICANT RADIOGRAPHIC FINDING IN THE CHEST. TECHNICAL DOCUMENTATION: JOB ID: [id number] [employer]- All Rights Reserved Reading location - IP/workstation name: [email or web address]
[2018-03-07 23:07] LABS: ALCOHOL < 10 mg/dL (NONE DETECTED)
[2018-03-07] MEDS ORDERED: LIDOCAINE 1% INJ-PF (10 MG/ML) 30 ML SDV ONE (23:13)
[2018-03-07] MEDS ORDERED: CEFTRIAXONE 2 GM/D5W RTU 2 GM/50 ML RTUPB IV ONE (23:24)
[2018-03-07 23:53] LABS: APPEARANCE,URINE CLEAR; BILIRUBIN,URINE NEGATIVE (NEGATIVE); COLOR,URINE YELLOW; GLUCOSE, URINE NEGATIVE (NEGATIVE); KETONES,URINE NEGATIVE (NEGATIVE); LEUKOCYTE ESTERASE,URINE NEGATIVE (NEGATIVE); NITRITE,URINE NEGATIVE (NEGATIVE); PROTEIN,URINE NEGATIVE (NEGATIVE); URINE SPECIFIC GRAVITY 1.024
[2018-03-07 23:57] LABS: GLUCOSE,CSF 66 mg/dL (40-70); PROTEIN,CSF 38 mg/dL (12-60)
[2018-03-08 00:06] LABS: URINE AMPHETAMINES SCREEN NEGATIVE; URINE BARBITURATES SCREEN NEGATIVE; URINE BENZODIAZEPINES SCREEN UNCONFIRMED POSITIVE; URINE COCAINE SCREEN NEGATIVE; URINE MARIJUANA (THC) SCREEN NEGATIVE; URINE METHADONE SCREEN NEGATIVE; URINE PHENCYCLIDINE SCREEN NEGATIVE
[2018-03-08] MEDS ORDERED: ACYCLOVIR SODIUM INJ/PF 500 MG/10 ML SDV IV ONE (00:07)
[2018-03-08 00:17] LABS: ARTERIAL BLOOD FIO2 ROOM AIR; ARTERIAL BLOOD H2CO3 1.95 mmol/L (1.05-1.35); ARTERIAL BLOOD HCO3 31.2 mmol/L (20-26); ARTERIAL BLOOD O2 SATURATION 95.1 % (94-98); ARTERIAL BLOOD PCO2 64.8 mmHg (35-45); ARTERIAL BLOOD PO2 84.5 mmHg (80-100); ARTERIAL BLOOD TOTAL CO2 33.2 mmol/L (23-27)
[2018-03-08 00:24] LABS: APPEARANCE ALL TUBES CLEAR; COLOR ALL TUBES COLORLESS; CSF TUBE NUMBER 4
[2018-03-08 00:25] LABS: RED BLOOD CELL,CSF 16 /uL (0-10); VOLUME TUBE 2 0.5 CC; VOLUME TUBE 3 0.5 CC
[2018-03-08 00:26] LABS: WHITE BLOOD CELL,CSF 0 /uL (0-5)
[2018-03-08] MEDS ORDERED: DEXAMETHASONE SOD PHOS INJ 10 MG/1 ML VIAL IV ONE (00:27)
[2018-03-08] MEDS ORDERED: DOPAMINE HCL/DEXTROSE 5%-WATER 800 MG/250 ML RTUINJ IV PRN (00:37)
[2018-03-08] MEDS ORDERED: DOPAMINE HCL/DEXTROSE 5%-WATER 800 MG/250 ML RTUINJ IV ONE (00:39)
[2018-03-08 00:44] LABS: APPEARANCE ALL TUBES CLEAR; COLOR ALL TUBES COLORLESS; CSF TUBE NUMBER 1; VOLUME TUBE 2 0.5 CC; VOLUME TUBE 3 0.5 CC
[2018-03-08 00:45] LABS: RED BLOOD CELL,CSF 449 /uL (0-10)
[2018-03-08 00:46] LABS: WHITE BLOOD CELL,CSF 0 /uL (0-5)
[2018-03-08] MEDS ORDERED: DEXTROSE 5%-WATER 250 ML with NOREPINEPHRINE BITARTRATE 4 MG IV PRN ×2 (01:09)
[2018-03-08 01:12] LABS: ARTERIAL BLOOD BASE EXCESS 3.3 mmol/L; ARTERIAL BLOOD FIO2 25%; ARTERIAL BLOOD H2CO3 1.84 mmol/L (1.05-1.35); ARTERIAL BLOOD HCO3 30.9 mmol/L (20-26); ARTERIAL BLOOD O2 SATURATION 98.4 % (94-98); ARTERIAL BLOOD PCO2 61.2 mmHg (35-45); ARTERIAL BLOOD PH 7.32 (7.35-7.45); ARTERIAL BLOOD PO2 133.4 mmHg (80-100); ARTERIAL BLOOD TOTAL CO2 32.8 mmol/L (23-27)
[2018-03-08] MEDS ORDERED: AMPICILLIN SODIUM/SULBACTAM NA 3 GM in NORMAL SALINE 100 ML IV SCH (01:15)
[2018-03-08] MEDS ORDERED: AMPICILLIN SOD/SULBACTAM 3 GM VIAL IV PRN (01:19)
[2018-03-08] MEDS ORDERED: NORMAL SALINE 1000 ML 1,000 ML IV PRN (01:19)
[2018-03-08] MEDS ORDERED: AMPICILLIN SODIUM/SULBACTAM NA 3 GM in NORMAL SALINE 100 ML IV ONE (01:30)
[2018-03-08 01:31] LABS: FREE T4 (FREE THYROXINE) 0.93 ng/dL (0.78-2.19)
[2018-03-08 01:38] LABS: PROTHROMBIN TIME 13.7 SEC (11.4-15.4)
[2018-03-08 01:39] LABS: PARTIAL THROMBOPLASTIN TIME 35.6 SEC (23.5-35.8)
[2018-03-08 01:41] LABS: LIPASE 196.4 U/L (23-300); PHOSPHORUS 3.1 mg/dL (2.5-4.5)
[2018-03-08 01:44] LABS: THYROID STIMULATING HORMONE 4.25 uIU/mL (0.47-4.68)
[2018-03-08] MEDS ORDERED: NOREPINEPHRINE BITARTRATE INJ/PF 4 MG/4 ML SDV IV ONE (01:55)
[2018-03-08 02:45] LABS: TROPONIN I < 0.012 ng/mL
--- NOTE | 2018-03-08 03:02 | RADIOLOGY REPORT (SQ) ---
EXAM DESCRIPTION: CT ABDOMEN AND PELVIS WITHOUT CONTRAST CLINICAL HISTORY: Hypothermia. Low blood pressure. EtOH. COMPARISON: None Available. TECHNIQUE: CT of the abdomen and pelvis without IV contrast. Evaluation of the solid organs and vasculature is suboptimal due to lack of IV contrast. DLP: 702.7 mGy-cm FINDINGS: Lung Bases: Linear left basilar opacities likely related to atelectasis. Bones: No destructive bone lesions identified. Abdomen: Liver: The liver has normal size and density. Gallbladder: No calcified gallstones. Spleen, Pancreas, and Adrenal Glands: Diffuse peripancreatic fat stranding and loss of definite pancreatic parenchyma involving the body and head of the pancreas. No well-circumscribed fluid collection. The spleen and adrenal glands are unremarkable. Kidneys: The kidneys have normal size and contour without evidence of hydronephrosis. No obstructing ureteral calculi. Vasculature: The aorta and IVC have normal caliber and position. Stomach: The stomach and duodenum have normal course. Other: No free intraperitoneal air. Possible tiny amount of free fluid. Pelvis: Bladder: Joseph catheter in the urinary bladder. Bowel: No dilated loops of large or small bowel. Appendix: Normal appendix. Pelvis: Prostate is not enlarged. IMPRESSION: 1. Findings compatible with acute pancreatitis. The parenchyma of the body and head of the pancreas is not well-visualized by CT criteria. Pancreatic necrosis is a possibility however definitive characterization is not possible without iodinated contrast. This exam was performed according to our departmental dose-optimization program, which includes automated exposure control, adjustment of the mA and/or kV according to patient size and/or use of iterative reconstruction technique.
[2018-03-08] MEDS ORDERED: VASOPRESSIN INJ 20 UNIT/1 ML VIAL ONE (03:10)
[2018-03-08] MEDS ORDERED: DEXTROSE 5%-WATER 250 ML with VASOPRESSIN 100 UNIT IV PRN ×2 (03:29)
[2018-03-08] MEDS: HEPARIN SOD (PORCINE) 5,000 UNIT/ML 1 ML SYRINGE SUBCUT SCH ×3 (05:21→22:05)
[2018-03-08 05:54] LABS: ARTERIAL BLOOD BASE EXCESS 1.3 mmol/L; ARTERIAL BLOOD FIO2 25%; ARTERIAL BLOOD H2CO3 1.56 mmol/L (1.05-1.35); ARTERIAL BLOOD HCO3 27.8 mmol/L (20-26); ARTERIAL BLOOD O2 SATURATION 98.5 % (94-98); ARTERIAL BLOOD PCO2 51.9 mmHg (35-45); ARTERIAL BLOOD PH 7.35 (7.35-7.45); ARTERIAL BLOOD TOTAL CO2 29.3 mmol/L (23-27)
[2018-03-08] MEDS: NORMAL SALINE 1000 ML 1,000 ML IV PRN ×4 (06:35→22:05)
--- NOTE | 2018-03-08 06:36 | RADIOLOGY REPORT (SQ) ---
EXAM DESCRIPTION: Single view of the chest CLINICAL HISTORY: Shortness of breath COMPARISON: 03/07/2018 FINDINGS: Single frontal view of the chest. The cardiomediastinal silhouette has normal size and contour. No consolidation, pneumothorax, or pleural effusion. No displaced rib fractures identified. Leads overlie the chest. Low lung volumes. Upper abdominal soft tissues are unremarkable. IMPRESSION: 1. No acute pulmonary process identified.
--- NOTE | 2018-03-08 08:54 | EKG REPORT ---
SEVERITY:- ABNORMAL ECG - SINUS RHYTHM NONSPECIFIC INTRAVENTRICULAR CONDUCTION DELAY INFERIOR INFARCT, OLD : Confirmed by: Oleg Coleman 08-Mar-2018 08:53:42
[2018-03-08 09:35] LABS: CREATINE KINASE MB 7.1 ng/mL (<4.55); TROPONIN I 0.022 ng/mL
[2018-03-08] MEDS: AMPICILLIN SODIUM/SULBACTAM NA 3 GM in NORMAL SALINE 100 ML IV SCH ×3 (09:41→20:42)
[2018-03-08 14:39] LABS: CREATINE KINASE MB 5.63 ng/mL (<4.55)
[2018-03-08 14:41] LABS: TROPONIN I < 0.012 ng/mL
[2018-03-08 18:48] LABS: ARTERIAL BLOOD BASE EXCESS 4.4 mmol/L; ARTERIAL BLOOD H2CO3 1.55 mmol/L (1.05-1.35); ARTERIAL BLOOD HCO3 30.3 mmol/L (20-26); ARTERIAL BLOOD O2 SATURATION 98.1 % (94-98); ARTERIAL BLOOD PCO2 51.6 mmHg (35-45); ARTERIAL BLOOD PH 7.39 (7.35-7.45); ARTERIAL BLOOD PO2 114.9 mmHg (80-100); ARTERIAL BLOOD TOTAL CO2 31.9 mmol/L (23-27)
[2018-03-08 18:52] LABS: ARTERIAL BLOOD FIO2 25%
--- NOTE | 2018-03-08 20:00 | PDOC H&P ---
History of Present Illness Admission Date/PCP: 03/08/18 00:20 CODY POTTER MD History of Present Illness: NANETTE BOND is a 32 year old male Patient is mentally challenged she is a member of a longterm he was brought from the longterm to the emergency room for evaluation of rectal bleeding. He has severe developmental delay at baseline with aggressive behavior at times as well as self-mutilation he was in the emergency room on March 05 on March 06 for falls with laceration over his left eyebrow which was repaired with Dermabond I saw him in the office yesterday when he came for follow-up after ED visit. In the emergency room he was hypothermic the blood pressure was also very low in the 70s. The emergency room physician could not figure out the etiology of the low blood pressure and the hypothermia, she called me to admit the patient to the hospital, The blood pressure was extremely low he was started on normal saline at 2 50 cc/h, IV pressors, norepinephrine and vasopressin.CT scan of the abdomen and pelvis without contrast was done, there is diffuse barry-pancreatic fat stranding and loss of definite pancreatic parenchyma involving the body, the aid of the pancreas no well circumscribed fluid collection the spleen, adrenal glands are unremarkable Past Medical History Cardiac Medical History: Reports: None EENT Medical History: Reports: None Neurological Medical History: Reports: Seizures Endocrine Medical History: Reports: None Renal/ Medical History: Reports: None GI Medical History: Reports: None Psychiatric Medical History: Reports: Other - History of self abuse Past Surgical History Past Surgical History: Reports: None Social History Lives with: Other - prison Smoking Status: Unknown if Ever Smoked Frequency of Alcohol Use: None Hx Recreational Drug Use: No Hx Prescription Drug Abuse: No Family History Family History: Reviewed & Not Pertinent Parental Family History Reviewed: Yes Children Family History Reviewed: Yes Sibling(s) Family History Reviewed.: Yes Medication/Allergy Home Medications: Clonazepam [Klonopin 1 mg Tablet] 1 mg PO BID@0800,199903/08/18 Divalproex Sodium [Depakote] 500 mg PO BID@0800,199903/08/18 Hydroxyzine HCl [Atarax 50 mg Tablet] 50 mg PO BID@08,199903/08/18 Methylcellulose [Fiber Laxative] 1,000 mg PO QID 03/08/18 Naltrexone 50mg 50 mg PO QAM 03/08/18 Oxcarbazepine [Trileptal] 600 mg PO BID@0800,199903/08/18 Temazepam [Restoril] 30 mg PO QPM@199903/08/18 Thioridazine HCl 100 mg PO TID@0800,1400,199903/08/18 Trazodone HCl [Desyrel] 100 mg PO QHS 03/08/18 Allergies/Adverse Reactions: No Known Allergies Allergy (Verified 03/05/18 23:54) Review of Systems ROS unobtainable: Due to mental status Physical Exam Vital Signs: Temp Pulse Resp BP Pulse Ox 97.0 F 72 13 99/60 L 99 03/08/18 18:21 03/08/18 18:00 03/08/18 18:21 03/08/18 18:21 03/08/18 18:21 Intake & Output 03/07/18 03/08/18 03/09/18 06:59 06:59 06:59 Intake Total 938 1885 Output Total 600 2620 Balance 338 -735 Weight 74.7 kg General appearance: PRESENT: other - Patient is acutely ill looking, is nonverbal Eye exam: PRESENT: conjunctiva pale Respiratory exam: PRESENT: clear to auscultation delores Cardiovascular exam: PRESENT: +S1, +S2 GI/Abdominal exam: PRESENT: soft Neurological exam: PRESENT: altered Results Laboratory Results: 03/08/18 03/08/18 03/08/18 01:00 01:25 05:44 Carbonic Acid 1.84 H 1.56 H HCO3/H2CO3 Ratio 16:1 17:1 ABG pH 7.32 L 7.35 ABG pCO2 61.2 H 51.9 H ABG pO2 133.4 H 134.0 H ABG HCO3 30.9 H 27.8 H ABG O2 Saturation 98.4 H 98.5 H ABG Base Excess 3.3 1.3 FiO2 25% 25% Ammonia 23.4 03/08/18 18:25 Carbonic Acid 1.55 H HCO3/H2CO3 Ratio 19:1 ABG pH 7.39 ABG pCO2 51.6 H ABG pO2 114.9 H ABG HCO3 30.3 H ABG O2 Saturation 98.1 H ABG Base Excess 4.4 FiO2 25% Ammonia 03/08/18 03/08/18 03/08/18 01:25 01:25 08:50 Creatine Kinase 870 H 562 H CK-MB (CK-2) 11.10 H Troponin I < 0.012 03/08/18 03/08/18 03/08/18 08:50 13:35 13:35 Creatine Kinase 479 H CK-MB (CK-2) 7.10 H 5.63 H Troponin I 0.022 < 0.012 Impressions: Head CT 03/07/18 21:28 IMPRESSION: Soft tissue swelling. No acute intracranial abnormality. EVIDENCE OF ACUTE STROKE: NO. Abdomen/Pelvis CT 03/08/18 00:00 IMPRESSION: 1. Findings compatible with acute pancreatitis. The parenchyma of the body and head of the pancreas is not well-visualized by CT criteria. Pancreatic necrosis is a possibility however definitive characterization is not possible without iodinated contrast. This exam was performed according to our departmental dose-optimization program, which includes automated exposure control, adjustment of the mA and/or kV according to patient size and/or use of iterative reconstruction technique. Chest X-Ray 03/08/18 06:00 IMPRESSION: 1. No acute pulmonary process identified. Assessment & Plan - Diagnosis (1) Hypotension Qualifiers: Hypotension type: unspecified hypotension type Qualified Code(s): I95.9 - Hypotension, unspecified Is this a current diagnosis for this admission?: Yes Plan: Patient will continue IV fluid, normal saline, at 2 50 cc/h (2) Hypothermia Qualifiers: Encounter type: initial encounter Qualified Code(s): T68.XXXA - Hypothermia , initial encounter Is this a current diagnosis for this admission?: Yes Plan: Hypothymia could be secondary to severe sepsis, he will empirically be treated with Unasyn, since the most likely source of infection is the pancreas (3) Acute pancreatitis Qualifiers: Pancreatitis type: unspecified pancreatitis type Acute pancreatitis complication: unspecified Qualified Code(s): K85.90 - Acute pancreatitis without necrosis or infection, unspecified Is this a current diagnosis for this admission?: Yes Plan: The findings on the CT scan could not completely rule out necrotizing pancreatitis because it was without contrast study
[2018-03-09] MEDS: AMPICILLIN SODIUM/SULBACTAM NA 3 GM in NORMAL SALINE 100 ML IV SCH ×4 (02:06→20:52)
[2018-03-09] MEDS: NORMAL SALINE 1000 ML 1,000 ML IV PRN ×3 (04:05→22:08)
[2018-03-09 04:20] LABS: ABSOLUTE LYMPHOCYTES (AUTO) 1.5 10^3/uL (0.5-4.7); ABSOLUTE MONOCYTES (AUTO) 1.3 10^3/uL (0.1-1.4); ABSOLUTE NEUT (AUTO) 5.2 10^3/uL (1.7-8.2); BASOPHILS % (AUTO) 0.2 % (0-2); HEMATOCRIT 32.6 % (37.9-51.0); LYMPHOCYTES % (AUTO) 18.5 % (13-45); MEAN CORPUSCULAR HEMOGLOBIN 28.3 pg (27.0-33.4); MEAN CORPUSCULAR HGB CONC 33.3 g/dL (32.0-36.0); MEAN CORPUSCULAR VOLUME 85 fl (80-97); MONOCYTES % (AUTO) 16.7 % (3-13); PLATELET COUNT 168 10^3/uL (150-450); RED BLOOD COUNT 3.84 10^6/uL (4.35-5.55); RED CELL DISTRIBUTION WIDTH 15.5 % (11.5-14.0); SEGMENTED NEUTROPHILS % (AUTO) 64.6 % (42-78); TOTAL CELLS COUNTED % (AUTO) 100 %
[2018-03-09 04:29] LABS: HEMOGLOBIN 10.9 g/dL (13.5-17.0)
[2018-03-09 04:43] LABS: ALANINE AMINOTRANSFERASE 74 U/L (21-72); ALBUMIN 2.9 g/dL (3.5-5.0); ALKALINE PHOSPHATASE 56 U/L (38-126); ANION GAP 6 (5-19); ASPARTATE AMINO TRANSFERASE 66 U/L (17-59); BILIRUBIN,DIRECT 0.2 mg/dL (0.0-0.4); BILIRUBIN,TOTAL 0.2 mg/dL (0.2-1.3); BLOOD UREA NITROGEN 6 mg/dL (7-20); CALCIUM 9.1 mg/dL (8.4-10.2); CARBON DIOXIDE 33 mmol/L (22-30); CHLORIDE 109 mmol/L (98-107); CHOLESTEROL 113.51 mg/dL (0-200); GLUCOSE 72 mg/dL (75-110); POTASSIUM 3.7 mmol/L (3.6-5.0); SODIUM 148.4 mmol/L (137-145); TOTAL PROTEIN 5.5 g/dL (6.3-8.2); TRIGLYCERIDES 69 mg/dL (<150)
[2018-03-09 04:54] LABS: DIRECT LDL 32 mg/dL (<100)
[2018-03-09] MEDS: HEPARIN SOD (PORCINE) 5,000 UNIT/ML 1 ML SYRINGE SUBCUT SCH ×3 (05:04→21:02)
--- NOTE | 2018-03-09 16:32 | Physician Advisory Note ---
Physician Advisor ProgressNote .: Pursuant to the plan for Pretty Mathew, I have reviewed the medical record for this patient. Physician Advisor Statement: Please consider documenting, if you agree: 1. " shock due to " (several liters IVF + pressors in ED for persistent severe hypotension) 2. "possible severe sepsis, evidenced by , which are likely due to sepsis" (have documented hypotension, hypothermia, mental status change/ somnolence [metabolic encephalopathy?] - initial total GCScale score in ED was 8 out of 15 - need to clarify which are due to sepsis vs due to other issues) 3. Anemia of Acute Blood Loss, suspect due to ; baseline Hgb=14.4 on 02/08/18" (supra-rectal lac, facial lac, falls, ...) 4. "Acute Hypercarbic Respiratory Failure, suspect due to " (given Bipap in ED with improvement in ABGs) 5. "Acute hypernatremia, suspect due to " 6. "recent falls, possibly due to " [sedating meds? illness? ...] 7. "mild rhabdomyolysis, may be due to " Thanks! CK
[2018-03-09] MEDS ORDERED: NALTREXONE 50 MG PO SCH (16:45)
[2018-03-09] MEDS ORDERED: METHYLCELLULOSE 1000 MG PO SCH (18:00)
[2018-03-09] MEDS ORDERED: THIORIDAZINE HCL 100 MG PO SCH (20:00)
[2018-03-09] MEDS ORDERED: (PENDING PHARMACY ID) (Oxcarbazepine [Trileptal] 600 MG) PO SCH (20:00)
[2018-03-09] MEDS ORDERED: (PENDING PHARMACY ID) (Temazepam [Restoril] 30 MG) PO SCH (20:00)
[2018-03-09] MEDS ORDERED: (PENDING PHARMACY ID) (Divalproex Sodium [Depakote] 500 MG) PO SCH (20:00)
--- NOTE | 2018-03-09 20:01 | PDOC PROGRESS REPORT ---
Subjective Progress Note for:: 03/09/18 Subjective:: Patient was seen by the bedside he is no longer requiring intravenous pressors, alert seems to be back to his baseline, agitated with tendency to self mutilation, patient be transferred out of ICU very quickly to medical floor Reason For Visit: HYPOTHERMIA, HYPOTENSION, ETIOLOGY, INFECTION Physical Exam Vital Signs: Temp Pulse Resp BP Pulse Ox 98.1 F 66 14 118/91 H 97 03/09/18 19:00 03/09/18 18:00 03/09/18 19:00 03/09/18 18:59 03/09/18 19:00 Intake & Output 03/08/18 03/09/18 03/10/18 06:59 06:59 06:59 Intake Total 938 4221 2523 Output Total 600 4245 1700 Balance 338 -24 823 Weight 74.7 kg 73.6 kg General appearance: PRESENT: no acute distress Eye exam: PRESENT: PERRLA Respiratory exam: PRESENT: clear to auscultation delores Cardiovascular exam: PRESENT: +S1, +S2 GI/Abdominal exam: PRESENT: soft Neurological exam: PRESENT: alert Results Laboratory Results: 03/09/18 03:53 03/09/18 03:53 03/09/18 03/09/18 03:53 03:53 WBC 8.0 RBC 3.84 L Hgb 10.9 L D Hct 32.6 L MCV 85 MCH 28.3 MCHC 33.3 RDW 15.5 H Plt Count 168 Seg Neutrophils % 64.6 Lymphocytes % 18.5 Monocytes % 16.7 H Eosinophils % 0.0 Basophils % 0.2 Absolute Neutrophils 5.2 Absolute Lymphocytes 1.5 Absolute Monocytes 1.3 Absolute Eosinophils 0.0 Absolute Basophils 0.0 Sodium 148.4 H Potassium 3.7 Chloride 109 H Carbon Dioxide 33 H Anion Gap 6 BUN 6 L Creatinine 0.59 Est GFR ( Amer) > 60 Est GFR (Non-Af Amer) > 60 Glucose 72 L Calcium 9.1 Total Bilirubin 0.2 AST 66 H ALT 74 H Alkaline Phosphatase 56 Total Protein 5.5 L Albumin 2.9 L Triglycerides 69 Cholesterol 113.51 LDL Cholesterol Direct 32 VLDL Cholesterol 14.0 HDL Cholesterol 53 03/08/18 03/08/18 03/08/18 01:25 01:25 08:50 Creatine Kinase 870 H 562 H CK-MB (CK-2) 11.10 H Troponin I < 0.012 03/08/18 03/08/18 03/08/18 08:50 13:35 13:35 Creatine Kinase 479 H CK-MB (CK-2) 7.10 H 5.63 H Troponin I 0.022 < 0.012 Impressions: Head CT 03/07/18 21:28 IMPRESSION: Soft tissue swelling. No acute intracranial abnormality. EVIDENCE OF ACUTE STROKE: NO. Abdomen/Pelvis CT 03/08/18 00:00 IMPRESSION: 1. Findings compatible with acute pancreatitis. The parenchyma of the body and head of the pancreas is not well-visualized by CT criteria. Pancreatic necrosis is a possibility however definitive characterization is not possible without iodinated contrast. This exam was performed according to our departmental dose-optimization program, which includes automated exposure control, adjustment of the mA and/or kV according to patient size and/or use of iterative reconstruction technique. Chest X-Ray 03/08/18 06:00 IMPRESSION: 1. No acute pulmonary process identified. Assessment & Plan - Diagnosis (1) Hypotension Qualifiers: Hypotension type: unspecified hypotension type Qualified Code(s): I95.9 - Hypotension, unspecified Is this a current diagnosis for this admission?: Yes (2) Hypothermia Qualifiers: Encounter type: initial encounter Qualified Code(s): T68.XXXA - Hypothermia , initial encounter Is this a current diagnosis for this admission?: Yes (3) Acute pancreatitis Qualifiers: Pancreatitis type: unspecified pancreatitis type Acute pancreatitis complication: unspecified Qualified Code(s): K85.90 - Acute pancreatitis without necrosis or infection, unspecified Is this a current diagnosis for this admission?: Yes (4) Metabolic encephalopathy Is this a current diagnosis for this admission?: Yes - Plan Summary Plan Summary: Transferred to medical floor continue home meds
[2018-03-09] MEDS: DIVALPROEX SODIUM 250 MG TABLET.DR PO SCH (20:50)
[2018-03-09] MEDS: CLONAZEPAM 1 MG TABLET PO SCH (20:50)
[2018-03-09] MEDS: TEMAZEPAM 15 MG CAPSULE PO SCH (20:51)
[2018-03-09] MEDS: OXCARBAZEPINE 150 MG TABLET PO SCH (20:51)
[2018-03-09] MEDS: THIORIDAZINE HCL 50 MG TABLET PO SCH (20:52)
[2018-03-09] MEDS: TRAZODONE HCL 50 MG TABLET PO SCH (21:01)
[2018-03-09] MEDS ORDERED: (PENDING PHARMACY ID) (Trazodone Hcl [Desyrel] 100 MG) PO SCH ×2 (22:00)
[2018-03-10] MEDS ORDERED: ACETAMINOPHEN 325 MG TABLET ONE (01:16)
[2018-03-10] MEDS: NORMAL SALINE 1000 ML 1,000 ML IV PRN ×2 (01:29→14:14)
[2018-03-10] MEDS: AMPICILLIN SODIUM/SULBACTAM NA 3 GM in NORMAL SALINE 100 ML IV SCH ×3 (03:08→14:20)
[2018-03-10 04:34] LABS: ABSOLUTE LYMPHOCYTES (AUTO) 1.8 10^3/uL (0.5-4.7); ABSOLUTE MONOCYTES (AUTO) 1.1 10^3/uL (0.1-1.4); BASOPHILS % (AUTO) 0.4 % (0-2); EOSINOPHILS % (AUTO) 0.4 % (0-6); HEMATOCRIT 32.8 % (37.9-51.0); HEMOGLOBIN 10.9 g/dL (13.5-17.0); LYMPHOCYTES % (AUTO) 30.5 % (13-45); MEAN CORPUSCULAR HEMOGLOBIN 28.1 pg (27.0-33.4); MEAN CORPUSCULAR HGB CONC 33.3 g/dL (32.0-36.0); MEAN CORPUSCULAR VOLUME 84 fl (80-97); PLATELET COUNT 150 10^3/uL (150-450); RED BLOOD COUNT 3.89 10^6/uL (4.35-5.55); RED CELL DISTRIBUTION WIDTH 15.4 % (11.5-14.0); SEGMENTED NEUTROPHILS % (AUTO) 49.7 % (42-78); TOTAL CELLS COUNTED % (AUTO) 100 %
[2018-03-10] MEDS: HEPARIN SOD (PORCINE) 5,000 UNIT/ML 1 ML SYRINGE SUBCUT SCH ×3 (05:12→23:21)
[2018-03-10] MEDS ORDERED: ACETAMINOPHEN 325 MG TABLET PO PRN (05:46)
[2018-03-10] MEDS: CLONAZEPAM 1 MG TABLET PO SCH ×2 (08:42→23:19)
[2018-03-10] MEDS: OXCARBAZEPINE 150 MG TABLET PO SCH ×2 (08:42→23:19)
[2018-03-10] MEDS: THIORIDAZINE HCL 50 MG TABLET PO SCH ×3 (08:43→23:20)
[2018-03-10] MEDS: DIVALPROEX SODIUM 250 MG TABLET.DR PO SCH ×2 (08:43→23:20)
--- NOTE | 2018-03-10 18:09 | RADIOLOGY REPORT (SQ) ---
EXAM DESCRIPTION: CT ABD/PELVIS WITH IV ONLY COMPLETED DATE/TIME: 03/10/2018 5:51 pm REASON FOR STUDY: acute pancreatitis COMPARISON: 03/08/2018 TECHNIQUE: CT scan of the abdomen and pelvis performed using helical scanning technique with dynamic intravenous contrast injection. No oral contrast. Images reviewed with lung, soft tissue, and bone windows. Reconstructed coronal and sagittal MPR images reviewed. Delayed images for evaluation of the urinary system also acquired. All images stored on PACS. All CT scanners at this facility use dose modulation, iterative reconstruction, and/or weight based d osing when appropriate to reduce radiation dose to as low as reasonably achievable (ALARA). [facility]: Dose Right [facility]: CareDose [facility]: Dose Right [facility]: Teradose 4D [facility]: ScaleBase CONTRAST TYPE AND DOSE: contrast/concentration: Isovue 370.00 mg/ml; Total Contrast Delivered: 82.0 ml; Total Saline Delivered: 68.0 ml RENAL FUNCTION: BUN 6 creatinine 0.59 RADIATION DOSE: CT Rad equipment meets quality standard of care and radiation dose reduction techniq ues were employed. CTDIvol: 16.9 - 19.5 mGy. DLP: 2123 mGy-cm.. LIMITATIONS: None. FINDINGS: LOWER CHEST: Minimal pleural effusions bilaterally. Mild dependent atelectasis in the low er lobes. LIVER: Normal size. No masses. No dilated ducts. SPLEEN: Normal size. No focal lesions. PANCREAS: There appears to be almost complete resolution of pancreatic edema. No mass is seen. No p eripancreatic or pancreatic fluid collection is appreciated. GALLBLADDER: No identified stones by CT criteria. No inflammatory changes to suggest cholecystitis. ADRENAL GLANDS: No significant masses or asymmetry. RIGHT KIDNEY AND URETER: No solid masses. No significant calcifications. No hydronephrosis or hyd roureter. LEFT KIDNEY AND URETER: No solid masses. No significant calcifications. No hydronephrosis or hydr oureter. AORTA AND VESSELS: No aneurysm. No dissection. Renal arteries, SMA, celiac without stenosis. RETROPERITONEUM: No retroperitoneal adenopathy, hemorrhage or masses. BOWEL AND PERITONEAL CAVITY: Considerable fecal material is present in the right colon and transverse colon and proximal descending colon. No bowel mass is seen. APPENDIX: Not identified. PELVIS: There is a small amount of free fluid in the pelvis. A Joseph catheter is present in the blad jagdish. There is a small amount of air in the bladder. ABDOMINAL WALL: No masses. No hernias. BONES: No significant or acute findings. OTHER: No other significant finding. IMPRESSION: 1. Almost complete resolution of pancreatic edema. 2. Minimal pleural effusions with mild dependent atelectasis in the lower lobes. 3. There is small amount of free fluid in the pelvis. TECHNICAL DOCUMENTATION: JOB ID: [id number] Quality ID # [id number]: Final reports with documentation of one or more dose reduction techniques (e.g., Au tomated exposure control, adjustment of the mA and/or kV according to patient size, use of iterative reconstruction technique) 2010 [employer]- All Rights Reserved Reading location - IP/workstation name: [email or web address]
[2018-03-10] MEDS ORDERED: NA PHOS,M-B/NA PHOS,DI-BA (ADULT) 133 ML ENEMA PR ONE ×2 (20:00→23:00)
[2018-03-10] MEDS ORDERED: BISACODYL 5 MG TABEC PO ONE ×2 (20:15→23:00)
--- NOTE | 2018-03-10 21:16 | PDOC PROGRESS REPORT ---
Subjective Progress Note for:: 03/10/18 Subjective:: Patient is seen by the bedside, the CT scan of the abdomen and pelvis with IV contrast showed near resolution of the pancreatitis, Reason For Visit: HYPOTHERMIA, HYPOTENSION, ETIOLOGY, INFECTION Physical Exam Vital Signs: Temp Pulse Resp BP Pulse Ox 98.5 F 124 H 17 140/84 H 95 03/10/18 19:51 03/10/18 19:51 03/10/18 19:51 03/10/18 19:51 03/10/18 19:51 Intake & Output 03/09/18 03/10/18 03/11/18 06:59 06:59 06:59 Intake Total 4221 4767 1082 Output Total 4247 5615 1155 Balance -24 1492 -73 Weight 73.6 kg 76.1 kg General appearance: PRESENT: no acute distress Eye exam: PRESENT: PERRLA Respiratory exam: PRESENT: clear to auscultation delores Cardiovascular exam: PRESENT: +S1, +S2 GI/Abdominal exam: PRESENT: soft Neurological exam: PRESENT: alert Results Laboratory Results: 03/10/18 03:58 03/09/18 03:53 03/10/18 03:58 WBC 6.0 RBC 3.89 L Hgb 10.9 L Hct 32.8 L MCV 84 MCH 28.1 MCHC 33.3 RDW 15.4 H Plt Count 150 Seg Neutrophils % 49.7 Lymphocytes % 30.5 Monocytes % 19.0 H Eosinophils % 0.4 Basophils % 0.4 Absolute Neutrophils 3.0 Absolute Lymphocytes 1.8 Absolute Monocytes 1.1 Absolute Eosinophils 0.0 Absolute Basophils 0.0 03/08/18 03/08/18 03/08/18 01:25 01:25 08:50 Creatine Kinase 870 H 562 H CK-MB (CK-2) 11.10 H Troponin I < 0.012 03/08/18 03/08/18 03/08/18 08:50 13:35 13:35 Creatine Kinase 479 H CK-MB (CK-2) 7.10 H 5.63 H Troponin I 0.022 < 0.012 Impressions: Head CT 03/07/18 21:28 IMPRESSION: Soft tissue swelling. No acute intracranial abnormality. EVIDENCE OF ACUTE STROKE: NO. Chest X-Ray 03/08/18 06:00 IMPRESSION: 1. No acute pulmonary process identified. Abdomen/Pelvis CT 03/10/18 00:00 IMPRESSION: 1. Almost complete resolution of pancreatic edema. 2. Minimal pleural effusions with mild dependent atelectasis in the lower lobes. 3. There is small amount of free fluid in the pelvis. Assessment & Plan - Diagnosis (1) Hypotension Qualifiers: Hypotension type: unspecified hypotension type Qualified Code(s): I95.9 - Hypotension, unspecified Is this a current diagnosis for this admission?: Yes Plan: Resolved (2) Hypothermia Qualifiers: Encounter type: initial encounter Qualified Code(s): T68.XXXA - Hypothermia , initial encounter Is this a current diagnosis for this admission?: Yes Plan: Resolved (3) Acute pancreatitis Qualifiers: Pancreatitis type: unspecified pancreatitis type Acute pancreatitis complication: unspecified Qualified Code(s): K85.90 - Acute pancreatitis without necrosis or infection, unspecified Is this a current diagnosis for this admission?: Yes (4) Metabolic encephalopathy Is this a current diagnosis for this admission?: Yes - Plan Summary Plan Summary: DC IV antibiotic, DC IV fluid because of blood pressure is elevated
[2018-03-10] MEDS: TRAZODONE HCL 50 MG TABLET PO SCH (23:18)
[2018-03-10] MEDS: TEMAZEPAM 15 MG CAPSULE PO SCH (23:19)
[2018-03-11 06:08] LABS: ABSOLUTE EOSINOPHILS # (AUTO) 0.1 10^3/uL (0.0-0.6); ABSOLUTE LYMPHOCYTES (AUTO) 2.2 10^3/uL (0.5-4.7); ABSOLUTE MONOCYTES (AUTO) 1.2 10^3/uL (0.1-1.4); ABSOLUTE NEUT (AUTO) 3.8 10^3/uL (1.7-8.2); BASOPHILS % (AUTO) 0.2 % (0-2); EOSINOPHILS % (AUTO) 1.3 % (0-6); HEMOGLOBIN 11.9 g/dL (13.5-17.0); LYMPHOCYTES % (AUTO) 29.7 % (13-45); MEAN CORPUSCULAR HEMOGLOBIN 28.5 pg (27.0-33.4); MEAN CORPUSCULAR HGB CONC 34.1 g/dL (32.0-36.0); MEAN CORPUSCULAR VOLUME 84 fl (80-97); MONOCYTES % (AUTO) 16.5 % (3-13); PLATELET COUNT 171 10^3/uL (150-450); RED BLOOD COUNT 4.18 10^6/uL (4.35-5.55); RED CELL DISTRIBUTION WIDTH 15.6 % (11.5-14.0); SEGMENTED NEUTROPHILS % (AUTO) 52.3 % (42-78); TOTAL CELLS COUNTED % (AUTO) 100 %; WHITE BLOOD COUNT 7.3 10^3/uL (4.0-10.5)
[2018-03-11] MEDS: HEPARIN SOD (PORCINE) 5,000 UNIT/ML 1 ML SYRINGE SUBCUT SCH ×3 (06:55→21:28)
[2018-03-11] MEDS: OXCARBAZEPINE 150 MG TABLET PO SCH ×2 (09:05→20:43)
[2018-03-11] MEDS: DIVALPROEX SODIUM 250 MG TABLET.DR PO SCH ×2 (09:06→20:42)
[2018-03-11] MEDS: CLONAZEPAM 1 MG TABLET PO SCH ×2 (09:06→20:43)
[2018-03-11] MEDS: THIORIDAZINE HCL 50 MG TABLET PO SCH ×3 (09:06→20:43)
[2018-03-11] MEDS: NA PHOS,M-B/NA PHOS,DI-BA (ADULT) 133 ML ENEMA PR SCH ×2 (10:05→21:18)
[2018-03-11] MEDS: TEMAZEPAM 15 MG CAPSULE PO SCH (20:43)
--- NOTE | 2018-03-11 20:47 | PDOC TRANSFER SUMMARY ---
General - Admit/Disc Date/PCP Admission Date/Primary Care Provider: 03/08/18 00:20 CODY POTTER MD Discharge Date: 03/11/18 - Discharge Diagnosis (1) Hypotension Is this a current diagnosis for this admission?: Yes Summary: Patient is not septic (2) Hypothermia Is this a current diagnosis for this admission?: Yes (3) Acute pancreatitis Is this a current diagnosis for this admission?: Yes Summary: The etiology of the acute pancreatitis was felt to be from medication (4) Metabolic encephalopathy Is this a current diagnosis for this admission?: Yes (5) Constipation Is this a current diagnosis for this admission?: Yes (6) Autism Is this a current diagnosis for this admission?: Yes - Additional Information Prescriptions: Bisacodyl [Dulcolax 5 Mg Tablet] 5 mg PO BID #70 tabec Home Medications: Naltrexone 50mg 50 mg PO QAM 03/08/18 RX: Clonazepam [Klonopin 1 mg Tablet] 1 mg PO BID@0800,199903/08/18 RX: Divalproex Sodium [Depakote] 500 mg PO BID@0800,199903/08/18 RX: Hydroxyzine HCl [Atarax 50 mg Tablet] 50 mg PO BID@0800,199903/08/18 RX: Methylcellulose [Fiber Laxative] 1,000 mg PO QID 03/08/18 RX: Oxcarbazepine [Trileptal] 600 mg PO BID@0800,199903/08/18 RX: Temazepam [Restoril] 30 mg PO QPM@199903/08/18 RX: Thioridazine HCl 100 mg PO TID@0800,1400,199903/08/18 RX: Trazodone HCl [Desyrel] 100 mg PO QHS 03/08/18 Bisacodyl [Dulcolax 5 Mg Tablet] 5 mg PO BID #70 tabec 03/11/18 History of Present Illness Admission Date/PCP: 03/08/18 00:20 CODY POTTER MD History of Present Illness: NANETTE BOND is a 32 year old male Patient is mentally challenged she is a member of a longterm he was brought from the longterm to the emergency room for evaluation of rectal bleeding. He has severe developmental delay at baseline with aggressive behavior at times as well as self-mutilation he was in the emergency room on March 05 on March 06 for falls with laceration over his left eyebrow which was repaired with Dermabond I saw him in the office yesterday when he came for follow-up after ED visit. In the emergency room he was hypothermic the blood pressure was also very low in the 70s. The emergency room physician could not figure out the etiology of the low blood pressure and the hypothermia, she called me to admit the patient to the hospital, The blood pressure was extremely low he was started on normal saline at 2 50 cc/h, IV pressors, norepinephrine and vasopressin.CT scan of the abdomen and pelvis without contrast was done, there is diffuse barry-pancreatic fat stranding and loss of definite pancreatic parenchyma involving the body, the aid of the pancreas no well circumscribed fluid collection the spleen, adrenal glands are unremarkable Hospital Course Hospital Course: Patient was admitted with severe low blood pressure, hypothermia, sepsis was suspected, no potential source was initially identified as the proximate cause of the hypothermia and low blood pressure. He was empirically treated with IV antibiotic after CT scan of the abdomen showed acute pancreatitis, he was treated with IV pressors and IV fluids, norepinephrine and vasopressin. The airway was supported with noninvasive positive pressure ventilation, BiPAP patient was managed in intensive care unit he did respond to treatment he was empirically treated with IV Unasyn. In 48 hrs. there was resolution of patient' s low blood pressure and hypothermia was improved subsequent CAT scan of the abdomen and pelvis was done it showed complete resolution of the pancreatitis He has constipation, he was treated with Dulcolax and Fleet Enema with good result. 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 Physical Exam Vital Signs: Temp Pulse Resp BP Pulse Ox 98.5 F 67 16 110/61 98 03/11/18 16:13 03/11/18 16:13 03/11/18 16:13 03/11/18 16:13 03/11/18 16:13 Intake & Output 03/10/18 03/11/18 03/12/18 06:59 06:59 06:59 Intake Total 9633 1082 975 Output Total 2894 4245 1350 Balance 4472 -9113 -018 Weight 76.1 kg 76.1 kg General appearance: PRESENT: no acute distress, well-developed, well-nourished Head exam: PRESENT: atraumatic, normocephalic Eye exam: PRESENT: conjunctiva pink, EOMI, PERRLA Ear exam: PRESENT: normal external ear exam Mouth exam: PRESENT: moist, tongue midline Respiratory exam: PRESENT: clear to auscultation delores Cardiovascular exam: PRESENT: RRR Vascular exam: PRESENT: normal capillary refill GI/Abdominal exam: PRESENT: normal bowel sounds, soft Rectal exam: PRESENT: deferred Extremities exam: PRESENT: full ROM Neurological exam: PRESENT: alert Skin exam: PRESENT: dry, intact, warm Results Laboratory Results: 03/11/18 05:32 03/09/18 03:53 03/11/18 05:32 WBC 7.3 RBC 4.18 L Hgb 11.9 L Hct 35.0 L MCV 84 MCH 28.5 MCHC 34.1 RDW 15.6 H Plt Count 171 Seg Neutrophils % 52.3 Lymphocytes % 29.7 Monocytes % 16.5 H Eosinophils % 1.3 Basophils % 0.2 Absolute Neutrophils 3.8 Absolute Lymphocytes 2.2 Absolute Monocytes 1.2 Absolute Eosinophils 0.1 Absolute Basophils 0.0 03/08/18 03/08/18 03/08/18 01:25 01:25 08:50 Creatine Kinase 870 H 562 H CK-MB (CK-2) 11.10 H Troponin I < 0.012 03/08/18 03/08/18 03/08/18 08:50 13:35 13:35 Creatine Kinase 479 H CK-MB (CK-2) 7.10 H 5.63 H Troponin I 0.022 < 0.012 Impressions: Head CT 03/07/18 21:28 IMPRESSION: Soft tissue swelling. No acute intracranial abnormality. EVIDENCE OF ACUTE STROKE: NO. Chest X-Ray 03/08/18 06:00 IMPRESSION: 1. No acute pulmonary process identified. Abdomen/Pelvis CT 03/10/18 00:00 IMPRESSION: 1. Almost complete resolution of pancreatic edema. 2. Minimal pleural effusions with mild dependent atelectasis in the lower lobes. 3. There is small amount of free fluid in the pelvis. Qualifiers - * PATIENT BEING DISCHARGED WITH ANY OF THE FOLLOWING DIAGNOSIS: No
[2018-03-11] MEDS: TRAZODONE HCL 50 MG TABLET PO SCH (21:28)
[2018-03-12] MEDS: HEPARIN SOD (PORCINE) 5,000 UNIT/ML 1 ML SYRINGE SUBCUT SCH (05:10)
[2018-03-12] MEDS: OXCARBAZEPINE 150 MG TABLET PO SCH (08:05)
[2018-03-12] MEDS: CLONAZEPAM 1 MG TABLET PO SCH (08:05)
[2018-03-12] MEDS: THIORIDAZINE HCL 50 MG TABLET PO SCH (08:10)
[2018-03-12] MEDS: DIVALPROEX SODIUM 250 MG TABLET.DR PO SCH (08:10)
[2018-03-12] MEDS: NA PHOS,M-B/NA PHOS,DI-BA (ADULT) 133 ML ENEMA PR SCH (09:21)
[2018-03-12 12:03] VITALS: BP 98/60
== END 2018-03-12 14:08 | disposition home or self-care (01) | DRG 314 ==
LOC: ER 20:36 → EH 03-08 00:20 → ICU 03-08 02:41 → 4S 03-10 19:20
PROVIDERS: ADMIT Internal Medicine; ATTEND Internal Medicine
PROC: 0HQ6XZZ Repair Back Skin, External Approach (ICD-10-PCS; principal; 2018-03-08)
PROC: 009U3ZX Drainage of Spinal Canal, Percutaneous Approach, Diagnostic (ICD-10-PCS; 2018-03-08)
DX: I95.9 Hypotension, unspecified (principal); K85.90 Acute pancreatitis without necrosis or infection, unspecified; G93.41 Metabolic encephalopathy; K62.5 Hemorrhage of anus and rectum; F84.0 Autistic disorder; T68.XXXA Hypothermia, initial encounter; R00.1 Bradycardia, unspecified; G40.909 Epilepsy, unspecified, not intractable, without status epilepticus; K59.00 Constipation, unspecified; S31.010A Laceration without foreign body of lower back and pelvis without penetration into retroperitoneum, initial encounter; R62.50 Unspecified lack of expected normal physiological development in childhood; F91.1 Conduct disorder, childhood-onset type; F81.9 Developmental disorder of scholastic skills, unspecified; X58.XXXA Exposure to other specified factors, initial encounter; Y93.9 Activity, unspecified; Y92.9 Unspecified place or not applicable; Z91.5 Personal history of self-harm
CPT/HCPCS: 36415; 36600; 51701; 70450; 71045; 74176; 74177; 80053; 80061; 80164; 80307; 81001; 82140; 82150; 82533; 82550; 82553; 82803; 82945; 82962; 83036; 83605; 83690; 83735; 84100; 84157; 84439; 84443; 84484; 85025; 85610; 85730; 87040; 87070; 87086; 87205; 89050; 93005; 93010; 94660; 96361; 96365; 99285; J0133; J0295; J0696; J1100; J1644; J3490; J7030; J7060

== ENCOUNTER 2018-03-22 12:28 | Emergency (ER) | payer MEDICAID ==
[2018-03-22] MEDS ORDERED: LIDOCAINE 1% INJ-PF (10 MG/ML) 30 ML SDV INJ ONE (14:18)
--- NOTE | 2018-03-22 14:23 | ER Document Report ---
ED General - General Chief Complaint: Fall Injury Stated Complaint: LACERATION TO HEAD Time Seen by Provider: 03/22/18 14:10 Mode of Arrival: Medic Information source: Legal Guardian, [facility] Records, Outside Facility Records Cannot obtain history due to: Mentally challenged Notes: 32-year-old male with autism, developmental delay presents after a fall at his assisted where he struck his head against the floor and sustained a 3 cm laceration to the right side of his forehead just medial to the right eye. Patient is baseline nonverbal and the history comes from a armed security guard from the assisted. Per the armed security guard she walked into the dining room to find the patient on the ground crying. She denies any loss of consciousness. Patient has been recently seen after a fall. per Caregiver patient has been alert and awake TRAVEL OUTSIDE OF THE [place] IN LAST 30 DAYS: No - HPI Onset: Just prior to arrival Quality of pain: No pain Severity: None Associated symptoms: None Similar symptoms previously: Yes Recently seen / treated by doctor: Yes - Related Data Allergies/Adverse Reactions: No Known Allergies Allergy (Verified 03/22/18 12:39) Past Medical History - General Information source: Legal Guardian, [facility] Records Cannot obtain history due to: Mentally challenged - Social History Smoking Status: Never Smoker Chew tobacco use (# tins/day): No Frequency of alcohol use: None Drug Abuse: None Lives with: Other - retirement Family History: Reviewed & Not Pertinent Patient has suicidal ideation: No Patient has homicidal ideation: No Neurological Medical History: Reports: Hx Seizures Renal/ Medical History: Denies: Hx Peritoneal Dialysis Review of Systems - Review of Systems -: Yes ROS unobtainable due to patient's medical condition Physical Exam - Vital signs Vitals: Pulse Resp BP Pulse Ox 64 18 118/62 100 03/22/18 12:38 03/22/18 12:38 03/22/18 12:38 03/22/18 12:38 Interpretation: Normal. No: Hypotensive, Febrile - Notes Notes: PHYSICAL EXAMINATION: GENERAL: Well-appearing, well-nourished and in no acute distress. HEAD: 3 cm laceration to the right forehead medial to the right eyebrow. Midface stable. EYES: Pupils equal round and reactive to light, extraocular movements intact, sclera anicteric, conjunctiva are normal. ENT: Nares patent, oropharynx clear without exudates. Moist mucous membranes. No hemotympanum. No blood in the naris, NECK: Normal range of motion, supple without lymphadenopathy LUNGS: Breath sounds clear to auscultation bilaterally and equal. No wheezes rales or rhonchi. HEART: Regular rate and rhythm without murmurs ABDOMEN: Soft, nontender, nondistended abdomen. No guarding, no rebound. No masses appreciated. Musculoskeletal: Normal range of motion, no pitting or edema. No cyanosis. NEUROLOGICAL: Cranial nerves grossly intact. Normal speech, normal gait. Normal sensory, motor exams PSYCH: Normal mood, normal affect. SKIN: 3 cm laceration to the forehead. Course - Re-evaluation Re-evalutation: Head CT 03/22/18 14:50 IMPRESSION: NORMAL BRAIN CT WITHOUT CONTRAST. SOFT TISSUE SWELLING LATERAL TO THE LEFT ORBIT. NO FRACTURE. EVIDENCE OF ACUTE STROKE: NO. 03/22/18 14:49 On reevaluation patient still somnolent, only arousable to name and physical stimuli. CAT scan will be performed at this time. 03/22/18 16:08 03/23/18 19:56 32-year-old male with autism, developmental delay presents after a fall of his chair just prior to arrival. Patient was seen by myself upon arrival. Vital signs were reviewed. Patient is afebrile, normotensive and not hypoxic. Patient does not appear toxic or dehydrated. They are in no acute distress. Previous medical records and nursing notes reviewed. Significant findings include a 3 cm laceration to the forehead just medial to the right eye. Patient remains somnolent throughout my examination which is a change in behavior what was recently reported on his last visit. CT of the head was obtained and showed soft tissue swelling lateral to the left orbit and no evidence of intracranial hemorrhage. Suture repair was performed after administering 2 mg of Ativan IM and 50 mg of Benadryl IM. Patient did require restraints but suture repair was completed successfully without complications. Caregiver who remained at the bedside throughout the patient's ED course states that they are planning on buying the patient a helmet since he has had 2 recent falls requiring emergency department visits. Caregiver provided the opportunity to ask questions, and express concerns. Discharge instructions discussed. Caregiver is agreeable with discharge home. Return indications explained and discussed with the caregiver who displays understanding. Patient encouraged to return to the emergency department immediately with any concerns. - Vital Signs Vital signs: Temp Pulse Resp BP Pulse Ox 56 L 16 108/68 98 03/22/18 16:55 03/22/18 16:55 03/22/18 16:55 03/22/18 16:55 - Diagnostic Test Radiology reviewed: Image reviewed, Reports reviewed Procedures - Laceration/Wound Repair Right Face Time completed: 14:23 Wound length (cm): 3 Wound's Depth, Shape: Superficial Laceration pre-procedure: Sterile PPE donned, Sterile drapes applied, Shur- Clens applied Anesthetic type: 1% Lidocaine Volume Anesthetic (mLs): 5 Wound explored: Clean Irrigated w/ Saline (mLs): 500 Wound Debrided: Minimal Wound Repaired With: Sutures Suture Size/Type: 6:0, Prolene Number of Sutures: 5 Layer Closure?: No Post-procedure wound care: Sterile dressing applied Complications: No Discharge - Discharge Clinical Impression: Head injury due to trauma Qualifiers: Encounter type: initial encounter Qualified Code(s): S09.90XA - Unspecified injury of head, initial encounter Fall Qualifiers: Encounter type: initial encounter Qualified Code(s): W19.XXXA - Unspecified fall, initial encounter Forehead laceration Qualifiers: Encounter type: initial encounter Qualified Code(s): S01.81XA - Laceration without foreign body of other part of head, initial encounter Condition: Good Disposition: HOME, SELF-CARE Instructions: Laceration Care ([facility]) Additional Instructions: Follow up with your physician tomorrow for further care or return to the ED IMMEDIATELY if symptoms worsen or new concerns occur. If you cannot afford to follow up with your primary care physician a list of low cost clinics have been provided at the end of your discharge papers as well. Please be seen by your primary care physician in 7 days for suture removal or return to the emergency room for suture removal. Referrals: CODY POTTER MD [Primary Care Provider] - Follow up as needed
[2018-03-22] MEDS ORDERED: LORAZEPAM INJ 2 MG/1 ML VIAL IM ONE (15:14)
[2018-03-22] MEDS ORDERED: DIPHENHYDRAMINE HCL 50 MG/ML VIAL IM ONE (15:15)
--- NOTE | 2018-03-22 15:25 | RADIOLOGY REPORT (SQ) ---
EXAM DESCRIPTION: CT HEAD WITHOUT COMPLETED DATE/TIME: 03/22/2018 3:13 pm REASON FOR STUDY: ams after head injury COMPARISON: 03/07/2018. TECHNIQUE: Axial images acquired through the brain without intravenous contrast. Images reviewed wi th bone, brain and subdural windows. Additional sagittal and coronal reconstructions were generated. Images stored on PACS. All CT scanners at this facility use dose modulation, iterative reconstruction, and/or weight based d osing when appropriate to reduce radiation dose to as low as reasonably achievable (ALARA). [facility]: Dose Right [facility]: CareDose [facility]: Dose Right [facility]: Teradose 4D [facility]: Smart [employer] RADIATION DOSE: CT Rad equipment meets quality standard of care and radiation dose reduction techniq ues were employed. CTDIvol: 53.2 mGy. DLP: 1044 mGy-cm. mGy. LIMITATIONS: None. FINDINGS: VENTRICLES: Normal size and contour. CEREBRUM: No masses. No hemorrhage. No midline shift. No evidence for acute infarction. Normal gra y/white matter differentiation. No areas of low density in the white matter. CEREBELLUM: No masses. No hemorrhage. No alteration of density. No evidence for acute infarction. EXTRAAXIAL SPACES: No fluid collections. No masses. ORBITS AND GLOBE: No intra- or extraconal masses. Normal contour of globe without masses. CALVARIUM: No fracture. PARANASAL SINUSES: No fluid or mucosal thickening. SOFT TISSUES: Soft tissue swelling lateral to the left orbit. OTHER: No other significant finding. IMPRESSION: NORMAL BRAIN CT WITHOUT CONTRAST. SOFT TISSUE SWELLING LATERAL TO THE LEFT ORBIT. NO FRACTURE. EVIDENCE OF ACUTE STROKE: NO. COMMENT: Quality ID # [id number]: Final reports with documentation of one or more dose reduction techniques (e.g., Automated exposure control, adjustment of the mA and/or kV according to patient size, use of iterative reconstruction technique) TECHNICAL DOCUMENTATION: JOB ID: [id number] [employer]- All Rights Reserved Reading location - IP/workstation name: [email or web address]
[2018-03-22 16:56] VITALS: BP 108/68
== END 2018-03-22 16:56 | disposition home or self-care (01) ==
LOC: ER 12:28
DX: S01.81XA Laceration without foreign body of other part of head, initial encounter (principal); W07.XXXA Fall from chair, initial encounter; Y92.199 Unspecified place in other specified residential institution as the place of occurrence of the external cause; F84.0 Autistic disorder; F79 Unspecified intellectual disabilities; Z78.1 Physical restraint status; R29.6 Repeated falls
CPT/HCPCS: 99284; 96372; 70450; 12013; J1200; J3490; J2060

== ENCOUNTER 2018-03-24 14:12 | Inpatient (IN) | payer MEDICAID ==
--- NOTE | 2018-03-24 14:59 | ER Document Report ---
ED General - General Chief Complaint: Head Injury Stated Complaint: WEAKNESS Time Seen by Provider: 03/24/18 14:59 Mode of Arrival: Medic Information source: Emergency Med Personnel, [facility] Records - childcare director and automotive internet sales consultant nurse. Notes: 32 yo nonverbal autistic behavioral aggression chemically sedated [facility] in [facility] [id number] [place] where he lived with his mother. Returns today by EMS bc the nurse needs assessment due to unstable shuffle gait (not new to the pillowcase turner, (thinks its physical), the piping supervisor rec he be re -evaluated due to falls this month, decreased appetite, sleeps more than usual. Dr. Medrano PCP. was hospitalized 5-15 for pancreatitis. Wednesday he was asleep, when time for lunch, woke up, went to the room and fell in the velázquez. No change in medications in February, routine not changed. Med list reviewed with supervisor silvering department that gave him his 8 am meds, no prn valium (not been given lately) TRAVEL OUTSIDE OF THE [place] IN LAST 30 DAYS: No - Related Data Allergies/Adverse Reactions: No Known Allergies Allergy (Verified 03/22/18 12:39) Past Medical History - General Information source: Patient - Social History Smoking Status: Unknown if Ever Smoked Frequency of alcohol use: None Drug Abuse: None Lives with: Other - [facility] Family History: Other - unable to obtain Neurological Medical History: Reports: Hx Seizures Renal/ Medical History: Denies: Hx Peritoneal Dialysis Psychiatric Medical History: Reports: Other - agression, autism, Surgical Hx: Negative Review of Systems - Review of Systems -: Yes ROS unobtainable due to patient's medical condition Physical Exam - Vital signs Vitals: Pulse Resp BP Pulse Ox 78 18 104/69 100 03/24/18 14:20 03/24/18 14:20 03/24/18 14:20 03/24/18 14:20 Interpretation: Normal - General General appearance: Lethargic In distress: None - HEENT Head: Normocephalic, Ecchymosis - Facial hematomas and a sutured right eyebrow Eyes: Normal Pupils: PERRL - small but reactive Neck: Supple - Respiratory Respiratory status: No respiratory distress Chest status: Nontender Breath sounds: Normal Chest palpation: Normal - Cardiovascular Rhythm: Regular, Bradycardia Heart sounds: Normal auscultation - Abdominal Inspection: Normal Distension: No distension Bowel sounds: Normal Tenderness: Nontender Organomegaly: No organomegaly - Rectal Notes: no stool in rectum, sutures above the anus are not infected, no erythema - Back Back: Normal, Nontender - Extremities General upper extremity: Normal inspection, Nontender, Normal color, Normal ROM , Normal temperature General lower extremity: Normal inspection, Nontender, Normal color, Normal ROM , Normal temperature, Normal weight bearing. No: Gene's sign - Neurological Eagle Coma Scale Eye Opening: To Pain Gagan Coma Scale Verbal: None Eagle Coma Scale Motor: None Eagle Coma Scale Total: 4 Cerebellar coordination: Other - unable to ambulate - Psychological Associated symptoms: Psychomotor depression - Skin Skin Moisture: Dry Skin Color: Ecchymosis - scattered from falls Course - Re-evaluation Re-evalutation: 03/24/18 15:54 I examined the patient fully undressed, his rectal temperature is 92.3. 03/24/18 18:09 nurse was unable to get urine on the cath, just urinated. Culture obtained. bp 80/57, liter of NS ordered. cxr low volums, ekgnsr, QT 472, QTc 510, Depakote level within normal range, 03/24/18 18:[address] Potter for admission and he will admit to IMCU, pressure 90/50 400 IV fluid infused. Patient is not responding to touch or voice. labs ok except for mildly elevated liver enzymes that he had mid-February. 03/24/18 18:30 03/24/18 18:36 Patient moves spontaneously when blood pressure was being taken, blood pressure systolic is now 110 after almost 1 L of fluid - Vital Signs Vital signs: Temp Pulse Resp BP Pulse Ox 92.6 F L 78 12 89/57 L 98 03/24/18 16:22 03/24/18 14:20 03/24/18 18:06 03/24/18 18:06 03/24/18 18:06 - Laboratory Result Diagrams: 03/24/18 16:36 03/24/18 16:36 Laboratory results interpreted by me: 03/24/18 03/24/18 03/24/18 16:36 16:36 16:36 Hgb 12.9 L RDW 16.9 H Monocytes % 13.2 H VBG pCO2 65.4 H* VBG HCO3 36.2 H Carbon Dioxide 32 H Calcium 10.9 H Total Bilirubin < 0.1 L AST 65 H ALT 75 H Discharge - Discharge Clinical Impression: Altered level of consciousness Hypothermia Qualifiers: Encounter type: initial encounter Qualified Code(s): T68.XXXA - Hypothermia, initial encounter Hypotension Qualifiers: Hypotension type: unspecified hypotension type Qualified Code(s): I95.9 - Hypotension, unspecified Condition: Fair Disposition: ADMITTED INPATIENT Admitting Provider: [facility] Admitted: [facility] Referrals: CODY POTTER MD [Primary Care Provider] - Follow up as needed
--- NOTE | 2018-03-24 16:24 | RADIOLOGY REPORT (SQ) ---
EXAM DESCRIPTION: CHEST SINGLE VIEW COMPLETED DATE/TIME: 03/24/2018 4:12 pm REASON FOR STUDY: hypothermia COMPARISON: None. EXAM PARAMETERS: NUMBER OF VIEWS: One view. TECHNIQUE: Single frontal radiographic view of the chest acquired. RADIATION DOSE: NA LIMITATIONS: None. FINDINGS: LUNGS AND PLEURA: Low lung volumes. No opacities, masses or pneumothorax. No pleural eff usion. MEDIASTINUM AND HILAR STRUCTURES: No masses. Contour normal. HEART AND VASCULAR STRUCTURES: Heart normal in size. Normal vasculature. BONES: No acute findings. HARDWARE: None in the chest. OTHER: No other significant finding. IMPRESSION: 1 Low lung volumes. NO ACUTE RADIOGRAPHIC FINDING IN THE CHEST. TECHNICAL DOCUMENTATION: JOB ID: [id number] [employer]- All Rights Reserved Reading location - IP/workstation name: [email or web address]
--- NOTE | 2018-03-24 16:29 | RADIOLOGY REPORT (SQ) ---
EXAM DESCRIPTION: CT HEAD WITHOUT COMPLETED DATE/TIME: 03/24/2018 4:10 pm REASON FOR STUDY: headache autism, banging head against wall, headache COMPARISON: CT brain 11/02/2017, 03/07/2018, 03/22/2018 TECHNIQUE: Axial images acquired through the brain without intravenous contrast. Images reviewed wi th bone, brain and subdural windows. Additional sagittal and coronal reconstructions were generated. Images stored on PACS. All CT scanners at this facility use dose modulation, iterative reconstruction, and/or weight based d osing when appropriate to reduce radiation dose to as low as reasonably achievable (ALARA). [facility]: Dose Right [facility]: CareDose [facility]: Dose Right [facility]: Teradose 4D [facility]: [employer] RADIATION DOSE: CT Rad equipment meets quality standard of care and radiation dose reduction techniq ues were employed. CTDIvol: 53.2 mGy. DLP: 1017 mGy-cm. mGy. LIMITATIONS: None. FINDINGS: VENTRICLES: Normal size and contour. CEREBRUM: No masses. No hemorrhage. No midline shift. No evidence for acute infarction. Normal gra y/white matter differentiation. No areas of low density in the white matter. CEREBELLUM: No masses. No hemorrhage. No alteration of density. No evidence for acute infarction. EXTRAAXIAL SPACES: No fluid collections. No masses. Benign tentorial dural calcification in the pos terior fossa on the left. ORBITS AND GLOBE: No intra- or extraconal masses. Normal contour of globe without masses. CALVARIUM: No fracture. PARANASAL SINUSES: No fluid or mucosal thickening. SOFT TISSUES: A 5 cm x 1.3 cm right frontotemporal scalp hematoma is present. A 4 x 1 cm left front otemporal scalp hematoma is present. A 2 x 1 cm scalp hematoma is present over the left frontal jeremie on. OTHER: No other significant finding. IMPRESSION: No acute intracranial changes. No skull fracture. Scalp hematomas. EVIDENCE OF ACUTE STROKE: NO. COMMENT: Quality ID # 436: Final reports with documentation of one or more dose reduction techniques (e.g., Automated exposure control, adjustment of the mA and/or kV according to patient size, use of iterative reconstruction technique) TECHNICAL DOCUMENTATION: JOB ID: [id number] [employer]- All Rights Reserved Reading location - IP/workstation name: [email or web address]
[2018-03-24 17:02] LABS: VENOUS BLOOD BASE EXCESS 8.3 mmol/L; VENOUS BLOOD HCO3 36.2 mmol/L (20-32); VENOUS BLOOD PH 7.36 (7.30-7.42)
[2018-03-24 17:09] LABS: ABSOLUTE LYMPHOCYTES (AUTO) 1.1 10^3/uL (0.5-4.7); ABSOLUTE MONOCYTES (AUTO) 0.6 10^3/uL (0.1-1.4); ABSOLUTE NEUT (AUTO) 3.1 10^3/uL (1.7-8.2); BASOPHILS % (AUTO) 0.1 % (0-2); EOSINOPHILS % (AUTO) 0.7 % (0-6); HEMATOCRIT 38.4 % (37.9-51.0); HEMOGLOBIN 12.9 g/dL (13.5-17.0); LYMPHOCYTES % (AUTO) 22.3 % (13-45); MEAN CORPUSCULAR HEMOGLOBIN 28.7 pg (27.0-33.4); MEAN CORPUSCULAR HGB CONC 33.7 g/dL (32.0-36.0); MEAN CORPUSCULAR VOLUME 85 fl (80-97); MONOCYTES % (AUTO) 13.2 % (3-13); PLATELET COUNT 253 10^3/uL (150-450); RED CELL DISTRIBUTION WIDTH 16.9 % (11.5-14.0); SEGMENTED NEUTROPHILS % (AUTO) 63.7 % (42-78); TOTAL CELLS COUNTED % (AUTO) 100 %; WHITE BLOOD COUNT 4.9 10^3/uL (4.0-10.5)
[2018-03-24 17:12] LABS: VENOUS BLOOD PCO2 65.4 mmHg (35-63)
[2018-03-24 17:16] LABS: ALANINE AMINOTRANSFERASE 75 U/L (21-72); ALBUMIN 4.3 g/dL (3.5-5.0); ALKALINE PHOSPHATASE 84 U/L (38-126); ANION GAP 12 (5-19); ASPARTATE AMINO TRANSFERASE 65 U/L (17-59); BLOOD UREA NITROGEN 10 mg/dL (7-20); CALCIUM 10.9 mg/dL (8.4-10.2); CARBON DIOXIDE 32 mmol/L (22-30); CHLORIDE 100 mmol/L (98-107); GLUCOSE 104 mg/dL (75-110); POTASSIUM 4.6 mmol/L (3.6-5.0); SODIUM 144.1 mmol/L (137-145); TOTAL PROTEIN 7.4 g/dL (6.3-8.2)
[2018-03-24 17:23] LABS: BILIRUBIN,TOTAL < 0.1 mg/dL (0.2-1.3)
--- NOTE | 2018-03-24 18:01 | EKG REPORT ---
SEVERITY:- ABNORMAL ECG - SINUS RHYTHM CONSIDER INFERIOR INFARCT : Confirmed by: Oleg Coleman 24-Mar-2018 18:00:57
[2018-03-24] MEDS ORDERED: NORMAL SALINE 1000 ML 1,000 ML IV ONE ×2 (18:08→18:30)
[2018-03-24] MEDS ORDERED: ENOXAPARIN SODIUM INJ 40 MG/0.4 ML DISP.SYRIN SUBCUT ONE (19:00)
[2018-03-24] MEDS: NORMAL SALINE 1000 ML 1,000 ML IV PRN (19:05)
[2018-03-24 19:13] LABS: INTERNATIONAL RATION (INR) 0.94; PROTHROMBIN TIME 13.1 SEC (11.4-15.4)
[2018-03-24 19:24] LABS: LIPASE 266.7 U/L (23-300)
[2018-03-24 19:46] LABS: FREE T4 (FREE THYROXINE) 0.84 ng/dL (0.78-2.19)
[2018-03-24 19:49] LABS: TROPONIN I < 0.012 ng/mL
[2018-03-24 20:00] LABS: THYROID STIMULATING HORMONE 9.41 uIU/mL (0.47-4.68)
[2018-03-25 01:24] LABS: CREATINE KINASE MB 6.56 ng/mL (<4.55)
[2018-03-25 01:25] LABS: TROPONIN I < 0.012 ng/mL
[2018-03-25] MEDS: NORMAL SALINE 1000 ML 1,000 ML IV PRN ×3 (05:31→16:07)
[2018-03-25 07:36] LABS: CREATINE KINASE MB 5.19 ng/mL (<4.55)
[2018-03-25 07:49] LABS: TROPONIN I < 0.012 ng/mL
[2018-03-25] MEDS ORDERED: (PENDING PHARMACY ID) (Oxcarbazepine [Trileptal] 600 MG) PO SCH (08:00)
[2018-03-25] MEDS ORDERED: (PENDING PHARMACY ID) (Trazodone Hcl [Desyrel] 100 MG) PO SCH (08:00)
[2018-03-25] MEDS ORDERED: (PENDING PHARMACY ID) (Divalproex Sodium [Depakote] 500 MG) PO SCH (08:00)
[2018-03-25] MEDS ORDERED: NALTREXONE 50 MG PO SCH (08:00)
[2018-03-25] MEDS ORDERED: METHYLCELLULOSE 1000 MG PO SCH (08:00)
[2018-03-25] MEDS ORDERED: THIORIDAZINE HCL 100 MG PO SCH (08:00)
[2018-03-25] MEDS ORDERED: CLONAZEPAM 1 MG TABLET PO ONE (09:00)
[2018-03-25] MEDS ORDERED: DIVALPROEX SODIUM 250 MG TABLET.DR PO ONE (09:00)
[2018-03-25] MEDS ORDERED: LEVOTHYROXINE SODIUM 0.05 MG TABLET PO ONE (09:00)
[2018-03-25] MEDS ORDERED: OXCARBAZEPINE 150 MG TABLET PO ONE (09:00)
[2018-03-25] MEDS ORDERED: HYDROXYZINE PAMOATE 50 MG CAPSULE PO ONE (09:00)
[2018-03-25 10:06] LABS: ARTERIAL BLOOD BASE EXCESS -1.8 mmol/L; ARTERIAL BLOOD H2CO3 1.33 mmol/L (1.05-1.35); ARTERIAL BLOOD HCO3 23.9 mmol/L (20-26); ARTERIAL BLOOD O2 SATURATION 97.2 % (94-98); ARTERIAL BLOOD PCO2 44.1 mmHg (35-45); ARTERIAL BLOOD PH 7.35 (7.35-7.45); ARTERIAL BLOOD PO2 98.3 mmHg (80-100); ARTERIAL BLOOD TOTAL CO2 25.2 mmol/L (23-27)
[2018-03-25 10:07] LABS: ARTERIAL BLOOD FIO2 ROOM AIR
[2018-03-25] MEDS: PSYLLIUM SEED-SF 5.85 GM PACKET PO SCH ×4 (10:20→20:57)
[2018-03-25] MEDS: ENOXAPARIN SODIUM INJ 40 MG/0.4 ML DISP.SYRIN SUBCUT SCH (10:21)
--- NOTE | 2018-03-25 12:31 | PDOC H&P ---
History of Present Illness Admission Date/PCP: 03/24/18 18:40 CODY POTTER MD History of Present Illness: NANETTE BOND is a 32 year old male, he has a history of behavioral disorder probably from autistic disorder follows with psychiatry presently resides in a nursing home, he is self destructive, he normally will hit his face and head with his own fist sustaining injury to face and head area.. He was transferred from nursing home to the emergency room because he was not acting himself, in the emergency room he was found to be hypotensive with blood pressure less than 90 systolic and also hypothermic. He presented in a similar fashion on March 08 when he had hypotension and hypothermia, the last time he was admitted he required IV fluid therapy with vasopressor, there was no source of infection but was found to have acute pancreatitis that was felt to be secondary to medication, there was complete resolution of the pancreatitis. No history could be obtained from this patient, he takes many psychotropic drugs essentially for control of behavior. He has facial hematomas and open laceration of the right eyebrow which was sutured, the blood work showed hyperbilirubinemia most likely from the hematomas of the face and neck area. The blood work also revealed subclinical hypothyroidism, this is not expected to cause this degree of hypothymia but he be started on levothyroxine. I do not see any evidence of infection, there is no particular need to treat empirically with antibiotic. There is leukocytosis, clinically does not look septic. Past Medical History Neurological Medical History: Reports: Seizures Psychiatric Medical History: Reports: Other - agression, autism, Social History Lives with: Other - nursing home Smoking Status: Never Smoker Frequency of Alcohol Use: None Hx Recreational Drug Use: No Hx Prescription Drug Abuse: No Family History Family History: Other - unable to obtain Parental Family History Reviewed: Yes Children Family History Reviewed: Yes Sibling(s) Family History Reviewed.: Yes Medication/Allergy Home Medications: Clonazepam [Klonopin 1 mg Tablet] 1 mg PO BID@0800,199903/08/18 Divalproex Sodium [Depakote] 500 mg PO BID@0800,199903/08/18 Hydroxyzine HCl [Atarax 50 mg Tablet] 50 mg PO BID@0800,199903/08/18 Methylcellulose [Fiber Laxative] 1,000 mg PO QID 03/08/18 Naltrexone 50mg 50 mg PO QAM 03/08/18 Oxcarbazepine [Trileptal] 600 mg PO BID@0800,199903/08/18 Temazepam [Restoril] 30 mg PO QPM@199903/08/18 Thioridazine HCl 100 mg PO TID@0800,1400,199903/08/18 Trazodone HCl [Desyrel] 100 mg PO QHS 03/08/18 Allergies/Adverse Reactions: No Known Allergies Allergy (Verified 03/22/18 12:39) Review of Systems ROS unobtainable: Due to mental status Physical Exam Vital Signs: Temp Pulse Resp BP Pulse Ox 96.0 F L 85 18 115/67 99 03/25/18 11:32 03/25/18 11:32 03/25/18 11:32 03/25/18 11:32 03/25/18 11:32 Intake & Output 03/24/18 03/25/18 03/26/18 06:59 06:59 06:59 Intake Total 1400 Balance 1400 Weight 76.2 kg General appearance: PRESENT: other - Lethargic Head exam: PRESENT: other - Traumatic with hematomas of the scalp and face, right eyebrow laceration Eye exam: PRESENT: PERRLA Mouth exam: PRESENT: dry mucosa Respiratory exam: PRESENT: clear to auscultation delores Cardiovascular exam: PRESENT: +S1, +S2 GI/Abdominal exam: PRESENT: soft Neurological exam: PRESENT: altered Results Laboratory Results: 03/24/18 03/24/18 03/25/18 18:45 18:45 09:40 Carbonic Acid 1.33 HCO3/H2CO3 Ratio 17:1 ABG pH 7.35 ABG pCO2 44.1 ABG pO2 98.3 ABG HCO3 23.9 ABG O2 Saturation 97.2 ABG Base Excess -1.8 FiO2 ROOM AIR Amylase 77 Lipase 266.7 TSH 9.41 H Free T4 0.84 03/24/18 03/24/18 03/25/18 18:45 18:45 00:45 Creatine Kinase 670 H 414 H CK-MB (CK-2) 10.50 H Troponin I < 0.012 03/25/18 03/25/18 03/25/18 00:45 06:50 06:50 Creatine Kinase 318 H CK-MB (CK-2) 6.56 H 5.19 H Troponin I < 0.012 < 0.012 Impressions: Head CT 03/24/18 15:10 IMPRESSION: No acute intracranial changes. No skull fracture. Scalp hematomas. EVIDENCE OF ACUTE STROKE: NO. Chest X-Ray 03/24/18 15:59 IMPRESSION: 1 Low lung volumes. NO ACUTE RADIOGRAPHIC FINDING IN THE CHEST. Assessment & Plan - Diagnosis (1) Hypotension Qualifiers: Hypotension type: unspecified hypotension type Qualified Code(s): I95.9 - Hypotension, unspecified Is this a current diagnosis for this admission?: Yes Plan: The etiology of the hypotension is probably hypovolemia, patient will be vigorously hydrated with fluid, it is difficult to say if this is a shock state condition, he has altered mental status, very lethargic but the lactic acid is normal, kidney function is normal there is no oliguria the altered mental status could be from medication or other causes (2) Hypothermia Qualifiers: Encounter type: subsequent encounter Qualified Code(s): T68.XXXD - Hypothermia, subsequent encounter Is this a current diagnosis for this admission?: Yes Plan: There is hypothymia the exact etiology is not clear but there is associated subclinical hypothyroidism, the hypothyroid state is not severe enough to be the cause of this severe hypothymia but he will be treated with levothyroxine (3) Subclinical hypothyroidism Is this a current diagnosis for this admission?: Yes Plan: Start Synthroid (4) Metabolic encephalopathy Is this a current diagnosis for this admission?: Yes (5) Hyperbilirubinemia Is this a current diagnosis for this admission?: Yes Plan: This is most likely from hematomas on the face
[2018-03-25] MEDS: THIORIDAZINE HCL 50 MG TABLET PO SCH ×2 (14:56→20:57)
[2018-03-25] MEDS ORDERED: DIVALPROEX SODIUM 250 MG TABLET.DR PO SCH (20:00)
[2018-03-25] MEDS ORDERED: (PENDING PHARMACY ID) (Temazepam [Restoril] 30 MG) PO SCH (20:00)
[2018-03-25] MEDS ORDERED: OXCARBAZEPINE 150 MG TABLET PO SCH (20:00)
--- NOTE | 2018-03-25 20:17 | PDOC PROGRESS REPORT ---
Subjective Progress Note for:: 03/25/18 Subjective:: Patient was seen by the bedside, he is very calm today, no aggressive behavior, he has sitters in the room watching over him Reason For Visit: HYPOTHERMIA,HYPOTENSION Physical Exam Vital Signs: Temp Pulse Resp BP Pulse Ox 97.4 F 80 20 105/73 100 03/25/18 15:24 03/25/18 15:24 03/25/18 15:24 03/25/18 15:24 03/25/18 15:24 Intake & Output 03/24/18 03/25/18 03/26/18 06:59 06:59 06:59 Intake Total 1400 2000 Balance 1400 2000 Weight 76.2 kg General appearance: PRESENT: no acute distress Eye exam: PRESENT: PERRLA Respiratory exam: PRESENT: clear to auscultation delores Cardiovascular exam: PRESENT: +S1, +S2 GI/Abdominal exam: PRESENT: soft Neurological exam: PRESENT: alert Results Laboratory Results: 03/25/18 09:40 Carbonic Acid 1.33 HCO3/H2CO3 Ratio 17:1 ABG pH 7.35 ABG pCO2 44.1 ABG pO2 98.3 ABG HCO3 23.9 ABG O2 Saturation 97.2 ABG Base Excess -1.8 FiO2 ROOM AIR 03/24/18 03/24/18 03/25/18 18:45 18:45 00:45 Creatine Kinase 670 H 414 H CK-MB (CK-2) 10.50 H Troponin I < 0.012 03/25/18 03/25/18 03/25/18 00:45 06:50 06:50 Creatine Kinase 318 H CK-MB (CK-2) 6.56 H 5.19 H Troponin I < 0.012 < 0.012 Impressions: Head CT 03/24/18 15:10 IMPRESSION: No acute intracranial changes. No skull fracture. Scalp hematomas. EVIDENCE OF ACUTE STROKE: NO. Chest X-Ray 03/24/18 15:59 IMPRESSION: 1 Low lung volumes. NO ACUTE RADIOGRAPHIC FINDING IN THE CHEST. Assessment & Plan - Diagnosis (1) Hypotension Qualifiers: Hypotension type: unspecified hypotension type Qualified Code(s): I95.9 - Hypotension, unspecified Is this a current diagnosis for this admission?: Yes Plan: The blood pressure is normal with hydration (2) Hypothermia Qualifiers: Encounter type: subsequent encounter Qualified Code(s): T68.XXXD - Hypothermia, subsequent encounter Is this a current diagnosis for this admission?: Yes (3) Subclinical hypothyroidism Is this a current diagnosis for this admission?: Yes (4) Metabolic encephalopathy Is this a current diagnosis for this admission?: Yes (5) Hyperbilirubinemia Is this a current diagnosis for this admission?: Yes
[2018-03-25] MEDS: CLONAZEPAM 1 MG TABLET PO SCH (20:56)
[2018-03-25] MEDS: HYDROXYZINE PAMOATE 50 MG CAPSULE PO SCH (20:56)
[2018-03-25] MEDS: TEMAZEPAM 15 MG CAPSULE PO SCH (20:56)
[2018-03-25] MEDS: TRAZODONE HCL 50 MG TABLET PO SCH (20:57)
[2018-03-25] MEDS: VALPROATE SODIUM SYRUP 250 MG/5 ML UDCUP PO SCH (22:34)
[2018-03-25] MEDS: OXCARBAZEPINE 300 MG/5 ML SUSP 250ML/BOTTLE PO SCH (22:35)
[2018-03-26] MEDS: LEVOTHYROXINE SODIUM 0.05 MG TABLET PO SCH (05:30)
[2018-03-26 07:17] LABS: ANION GAP 7 (5-19); BLOOD UREA NITROGEN 4 mg/dL (7-20); CALCIUM 9.6 mg/dL (8.4-10.2); CARBON DIOXIDE 27 mmol/L (22-30); CHLORIDE 106 mmol/L (98-107); GLUCOSE 81 mg/dL (75-110); POTASSIUM 4.1 mmol/L (3.6-5.0); SODIUM 140.4 mmol/L (137-145)
[2018-03-26] MEDS: PSYLLIUM SEED-SF 5.85 GM PACKET PO SCH ×4 (09:23→23:38)
[2018-03-26] MEDS: HYDROXYZINE PAMOATE 50 MG CAPSULE PO SCH ×2 (09:23→23:36)
[2018-03-26] MEDS: THIORIDAZINE HCL 50 MG TABLET PO SCH ×3 (09:23→23:36)
[2018-03-26] MEDS: CLONAZEPAM 1 MG TABLET PO SCH ×2 (09:23→23:35)
[2018-03-26] MEDS: VALPROATE SODIUM SYRUP 250 MG/5 ML UDCUP PO SCH ×2 (09:24→23:37)
[2018-03-26] MEDS: OXCARBAZEPINE 300 MG/5 ML SUSP 250ML/BOTTLE PO SCH ×2 (09:24→23:50)
[2018-03-26] MEDS: ENOXAPARIN SODIUM INJ 40 MG/0.4 ML DISP.SYRIN SUBCUT SCH (09:24)
[2018-03-26] MEDS: NORMAL SALINE 1000 ML 1,000 ML IV PRN ×2 (09:25→23:52)
--- NOTE | 2018-03-26 09:55 | PDOC PROGRESS REPORT ---
Subjective Progress Note for:: 03/26/18 Subjective:: This is a 32-year-old male with a significant history of the behavior problem possible autistic disorders currently live in a skilled nursing with the self- destructive behavior and injure himself admitted because of the not acting properly and hypothermia and hypotension's with currently resolving with the IV fluids and no sign of any sepsis Patient was admitted recently because of the pancreatitis but currently having no sign of pancreatitis and no sign of presents for sepsis According to the nurses patient is currently doing much better here there is no sign of any separate destructive behavior here Reason For Visit: HYPOTHERMIA,HYPOTENSION Physical Exam Vital Signs: Temp Pulse Resp BP Pulse Ox 98.3 F 61 20 113/75 98 03/26/18 04:02 03/26/18 04:02 03/26/18 04:02 03/26/18 04:02 03/26/18 04:02 Intake & Output 03/25/18 03/26/18 03/27/18 06:59 06:59 06:59 Intake Total 1400 4760 Output Total 0 Balance 1400 4760 Weight 76.2 kg 80.6 kg General appearance: PRESENT: no acute distress Eye exam: PRESENT: EOMI, PERRLA Additional comments: On the left side of the face of the Bruise and the swelling in the eyelid Respiratory exam: PRESENT: clear to auscultation delores Cardiovascular exam: PRESENT: +S1, +S2 GI/Abdominal exam: PRESENT: normal bowel sounds, soft. ABSENT: tenderness Extremities exam: ABSENT: pedal edema Neurological exam: PRESENT: alert, awake Psychiatric exam: PRESENT: appropriate affect Skin exam: PRESENT: cyanosis Additional comments: Some skin bruises present on the left side of the chest area Results Laboratory Results: 03/26/18 06:39 03/25/18 03/26/18 03/26/18 09:40 06:39 06:39 Carbonic Acid 1.33 HCO3/H2CO3 Ratio 17:1 ABG pH 7.35 ABG pCO2 44.1 ABG pO2 98.3 ABG HCO3 23.9 ABG O2 Saturation 97.2 ABG Base Excess -1.8 FiO2 ROOM AIR Sodium 140.4 Potassium 4.1 Chloride 106 Carbon Dioxide 27 Anion Gap 7 BUN 4 L Creatinine 0.62 Est GFR ( Amer) > 60 Est GFR (Non-Af Amer) > 60 Glucose 81 Calcium 9.6 Ammonia 18.2 03/24/18 03/24/18 03/25/18 18:45 18:45 00:45 Creatine Kinase 670 H 414 H CK-MB (CK-2) 10.50 H Troponin I < 0.012 03/25/18 03/25/18 03/25/18 00:45 06:50 06:50 Creatine Kinase 318 H CK-MB (CK-2) 6.56 H 5.19 H Troponin I < 0.012 < 0.012 Impressions: Head CT 03/24/18 15:10 IMPRESSION: No acute intracranial changes. No skull fracture. Scalp hematomas. EVIDENCE OF ACUTE STROKE: NO. Chest X-Ray 03/24/18 15:59 IMPRESSION: 1 Low lung volumes. NO ACUTE RADIOGRAPHIC FINDING IN THE CHEST. Assessment & Plan - Diagnosis (1) Hypotension Qualifiers: Hypotension type: unspecified hypotension type Qualified Code(s): I95.9 - Hypotension, unspecified Is this a current diagnosis for this admission?: Yes (2) Hypothermia Qualifiers: Encounter type: initial encounter Qualified Code(s): T68.XXXA - Hypothermia , initial encounter Is this a current diagnosis for this admission?: Yes (3) Metabolic encephalopathy Is this a current diagnosis for this admission?: Yes (4) Subclinical hypothyroidism Is this a current diagnosis for this admission?: Yes (5) Autism Is this a current diagnosis for this admission?: Yes - Time Time Spent with patient: 15-24 minutes Medications reviewed and adjusted accordingly: Yes Anticipated discharge: Other Within: Other - Inpatient Certification Medical Necessity: Need Close Monitoring Due to Risk of Patient Decompensation Post Hospital Care: D/C Applications Specialist Documentation - Plan Summary Plan Summary: pt is currently doing fair Patient's hypotension is currently resolved and temperature is also stable No sign of any sepsis continue to monitor the patient
[2018-03-26] MEDS: TEMAZEPAM 15 MG CAPSULE PO SCH (23:34)
[2018-03-26] MEDS: TRAZODONE HCL 50 MG TABLET PO SCH (23:35)
[2018-03-27 05:06] LABS: ABSOLUTE LYMPHOCYTES (AUTO) 1.8 10^3/uL (0.5-4.7); ABSOLUTE NEUT (AUTO) 3.5 10^3/uL (1.7-8.2); BASOPHILS % (AUTO) 0.3 % (0-2); EOSINOPHILS % (AUTO) 0.8 % (0-6); HEMATOCRIT 37.4 % (37.9-51.0); HEMOGLOBIN 12.8 g/dL (13.5-17.0); LYMPHOCYTES % (AUTO) 28.2 % (13-45); MEAN CORPUSCULAR HGB CONC 34.1 g/dL (32.0-36.0); MEAN CORPUSCULAR VOLUME 85 fl (80-97); MONOCYTES % (AUTO) 15.3 % (3-13); PLATELET COUNT 207 10^3/uL (150-450); RED CELL DISTRIBUTION WIDTH 16.6 % (11.5-14.0); SEGMENTED NEUTROPHILS % (AUTO) 55.4 % (42-78); TOTAL CELLS COUNTED % (AUTO) 100 %; WHITE BLOOD COUNT 6.3 10^3/uL (4.0-10.5)
[2018-03-27 05:19] LABS: ANION GAP 12 (5-19); BLOOD UREA NITROGEN 13 mg/dL (7-20); CALCIUM 10.2 mg/dL (8.4-10.2); CARBON DIOXIDE 26 mmol/L (22-30); CHLORIDE 103 mmol/L (98-107); GLUCOSE 86 mg/dL (75-110); POTASSIUM 4.2 mmol/L (3.6-5.0); SODIUM 141.1 mmol/L (137-145)
[2018-03-27] MEDS: LEVOTHYROXINE SODIUM 0.05 MG TABLET PO SCH (05:49)
[2018-03-27] MEDS: PSYLLIUM SEED-SF 5.85 GM PACKET PO SCH ×4 (09:46→22:59)
[2018-03-27] MEDS: VALPROATE SODIUM SYRUP 250 MG/5 ML UDCUP PO SCH ×2 (09:46→22:58)
[2018-03-27] MEDS: HYDROXYZINE PAMOATE 50 MG CAPSULE PO SCH ×2 (09:47→22:58)
[2018-03-27] MEDS: THIORIDAZINE HCL 50 MG TABLET PO SCH ×3 (09:48→22:59)
[2018-03-27] MEDS: ENOXAPARIN SODIUM INJ 40 MG/0.4 ML DISP.SYRIN SUBCUT SCH (09:48)
[2018-03-27] MEDS: CLONAZEPAM 1 MG TABLET PO SCH ×2 (09:48→22:57)
[2018-03-27] MEDS: OXCARBAZEPINE 300 MG/5 ML SUSP 250ML/BOTTLE PO SCH ×2 (09:49→22:59)
--- NOTE | 2018-03-27 10:52 | PDOC PROGRESS REPORT ---
Subjective Progress Note for:: 03/27/18 Subjective:: This is a 32-year-old male with a significant history of the behavior problem possible autistic disorders currently live in a [facility] with the self- destructive behavior and injure himself admitted because of the not acting properly and hypothermia and hypotension's with currently resolving with the IV fluids and no sign of any sepsis Patient was admitted recently because of the pancreatitis but currently having no sign of pancreatitis and no sign of presents for sepsis According to the nurses patient is currently doing much better here there is no sign of any separate destructive behavior here Reason For Visit: HYPOTHERMIA,HYPOTENSION Physical Exam Vital Signs: Temp Pulse Resp BP Pulse Ox 98.3 F 52 L 16 91/61 L 100 03/27/18 03:21 03/27/18 03:21 03/27/18 03:21 03/27/18 03:21 03/27/18 03:21 Intake & Output 03/26/18 03/27/18 03/28/18 06:59 06:59 06:59 Intake Total 4760 4570 Output Total 0 Balance 4760 4570 Weight 80.6 kg 75.6 kg Physical Exam: mental retardation's General appearance: PRESENT: no acute distress Eye exam: PRESENT: PERRLA Mouth exam: PRESENT: dry mucosa Respiratory exam: PRESENT: clear to auscultation delores Cardiovascular exam: PRESENT: +S1, +S2 GI/Abdominal exam: PRESENT: normal bowel sounds, soft Extremities exam: ABSENT: pedal edema Neurological exam: PRESENT: alert, awake Psychiatric exam: PRESENT: anxious Skin exam: PRESENT: dry Additional comments: Patient have a bruise on the left side of the face Results Laboratory Results: 03/27/18 04:48 03/27/18 04:48 03/27/18 03/27/18 03/27/18 04:48 04:48 04:48 WBC 6.3 RBC 4.40 Hgb 12.8 L Hct 37.4 L MCV 85 MCH 29.0 MCHC 34.1 RDW 16.6 H Plt Count 207 Seg Neutrophils % 55.4 Lymphocytes % 28.2 Monocytes % 15.3 H Eosinophils % 0.8 Basophils % 0.3 Absolute Neutrophils 3.5 Absolute Lymphocytes 1.8 Absolute Monocytes 1.0 Absolute Eosinophils 0.0 Absolute Basophils 0.0 Sodium 141.1 Potassium 4.2 Chloride 103 Carbon Dioxide 26 Anion Gap 12 BUN 13 Creatinine 0.65 Est GFR ( Amer) > 60 Est GFR (Non-Af Amer) > 60 Glucose 86 Calcium 10.2 Ammonia 36.3 H 03/24/18 03/24/18 03/25/18 18:45 18:45 00:45 Creatine Kinase 670 H 414 H CK-MB (CK-2) 10.50 H Troponin I < 0.012 03/25/18 03/25/18 03/25/18 00:45 06:50 06:50 Creatine Kinase 318 H CK-MB (CK-2) 6.56 H 5.19 H Troponin I < 0.012 < 0.012 Impressions: Head CT 03/24/18 15:10 IMPRESSION: No acute intracranial changes. No skull fracture. Scalp hematomas. EVIDENCE OF ACUTE STROKE: NO. Chest X-Ray 03/24/18 15:59 IMPRESSION: 1 Low lung volumes. NO ACUTE RADIOGRAPHIC FINDING IN THE CHEST. Assessment & Plan - Diagnosis (1) Hypotension Qualifiers: Hypotension type: unspecified hypotension type Qualified Code(s): I95.9 - Hypotension, unspecified Is this a current diagnosis for this admission?: Yes (2) Hypothermia Qualifiers: Encounter type: initial encounter Qualified Code(s): T68.XXXA - Hypothermia , initial encounter Is this a current diagnosis for this admission?: Yes (3) Metabolic encephalopathy Is this a current diagnosis for this admission?: Yes (4) Subclinical hypothyroidism Is this a current diagnosis for this admission?: Yes (5) Autism Is this a current diagnosis for this admission?: Yes - Time Time Spent with patient: 15-24 minutes Medications reviewed and adjusted accordingly: Yes Anticipated discharge: Other Within: Other - Inpatient Certification Medical Necessity: Need Close Monitoring Due to Risk of Patient Decompensation - Plan Summary Plan Summary: Discussed with the mother on the bedside and we consult the materials planner to contact the adult protective service regarding the mother concerns about this Bruise
[2018-03-27] MEDS: NORMAL SALINE 1000 ML 1,000 ML IV PRN (14:29)
[2018-03-27] MEDS: TRAZODONE HCL 50 MG TABLET PO SCH (22:57)
[2018-03-27] MEDS: TEMAZEPAM 15 MG CAPSULE PO SCH (22:58)
[2018-03-28] MEDS: LEVOTHYROXINE SODIUM 0.05 MG TABLET PO SCH (06:19)
[2018-03-28] MEDS: NORMAL SALINE 1000 ML 1,000 ML IV PRN (06:19)
[2018-03-28] MEDS: PSYLLIUM SEED-SF 5.85 GM PACKET PO SCH ×4 (09:36→21:05)
[2018-03-28] MEDS: THIORIDAZINE HCL 50 MG TABLET PO SCH ×3 (09:37→20:58)
[2018-03-28] MEDS: VALPROATE SODIUM SYRUP 250 MG/5 ML UDCUP PO SCH ×2 (09:37→21:05)
[2018-03-28] MEDS: CLONAZEPAM 1 MG TABLET PO SCH ×2 (09:38→20:58)
[2018-03-28] MEDS: HYDROXYZINE PAMOATE 50 MG CAPSULE PO SCH ×2 (09:38→20:58)
[2018-03-28] MEDS: ENOXAPARIN SODIUM INJ 40 MG/0.4 ML DISP.SYRIN SUBCUT SCH (09:38)
[2018-03-28] MEDS: OXCARBAZEPINE 300 MG/5 ML SUSP 250ML/BOTTLE PO SCH ×2 (09:39→21:05)
[2018-03-28] MEDS: TEMAZEPAM 15 MG CAPSULE PO SCH (20:58)
[2018-03-28] MEDS: TRAZODONE HCL 50 MG TABLET PO SCH (21:01)
--- NOTE | 2018-03-28 21:06 | PDOC PROGRESS REPORT ---
Subjective Progress Note for:: 03/28/18 Subjective:: Patient seen by the bedside,, patient may be downgraded to medical floor, the nurse stated that discharge planning is finding a new place for patient Reason For Visit: HYPOTHERMIA,HYPOTENSION Physical Exam Vital Signs: Temp Pulse Resp BP Pulse Ox 97.5 F 59 L 18 102/57 L 100 03/28/18 15:09 03/28/18 15:09 03/28/18 15:09 03/28/18 15:09 03/28/18 15:09 Intake & Output 03/27/18 03/28/18 03/29/18 06:59 06:59 06:59 Intake Total 4570 4600 960 Balance 4570 4600 960 Weight 75.6 kg 76.6 kg General appearance: PRESENT: no acute distress Eye exam: PRESENT: PERRLA Respiratory exam: PRESENT: clear to auscultation delores Cardiovascular exam: PRESENT: +S1, +S2 GI/Abdominal exam: PRESENT: soft Neurological exam: PRESENT: alert Results Laboratory Results: 03/27/18 04:48 03/27/18 04:48 03/24/18 03/24/18 03/25/18 18:45 18:45 00:45 Creatine Kinase 670 H 414 H CK-MB (CK-2) 10.50 H Troponin I < 0.012 03/25/18 03/25/18 03/25/18 00:45 06:50 06:50 Creatine Kinase 318 H CK-MB (CK-2) 6.56 H 5.19 H Troponin I < 0.012 < 0.012 Impressions: Head CT 03/24/18 15:10 IMPRESSION: No acute intracranial changes. No skull fracture. Scalp hematomas. EVIDENCE OF ACUTE STROKE: NO. Chest X-Ray 03/24/18 15:59 IMPRESSION: 1 Low lung volumes. NO ACUTE RADIOGRAPHIC FINDING IN THE CHEST. Assessment & Plan - Diagnosis (1) Hypotension Qualifiers: Hypotension type: unspecified hypotension type Qualified Code(s): I95.9 - Hypotension, unspecified Is this a current diagnosis for this admission?: Yes (2) Hypothermia Qualifiers: Encounter type: subsequent encounter Qualified Code(s): T68.XXXD - Hypothermia, subsequent encounter Is this a current diagnosis for this admission?: Yes (3) Subclinical hypothyroidism Is this a current diagnosis for this admission?: Yes (4) Metabolic encephalopathy Is this a current diagnosis for this admission?: Yes (5) Hyperbilirubinemia Is this a current diagnosis for this admission?: Yes
[2018-03-29] MEDS: LEVOTHYROXINE SODIUM 0.05 MG TABLET PO SCH (05:36)
[2018-03-29] MEDS: VALPROATE SODIUM SYRUP 250 MG/5 ML UDCUP PO SCH ×2 (08:54→21:45)
[2018-03-29] MEDS: THIORIDAZINE HCL 50 MG TABLET PO SCH ×3 (08:54→21:45)
[2018-03-29] MEDS: HYDROXYZINE PAMOATE 50 MG CAPSULE PO SCH ×2 (08:55→21:39)
[2018-03-29] MEDS: PSYLLIUM SEED-SF 5.85 GM PACKET PO SCH ×4 (08:55→21:46)
[2018-03-29] MEDS: ENOXAPARIN SODIUM INJ 40 MG/0.4 ML DISP.SYRIN SUBCUT SCH (08:57)
[2018-03-29] MEDS: CLONAZEPAM 1 MG TABLET PO SCH ×2 (09:01→21:41)
[2018-03-29] MEDS: OXCARBAZEPINE 300 MG/5 ML SUSP 250ML/BOTTLE PO SCH ×2 (09:05→21:46)
--- NOTE | 2018-03-29 21:18 | PDOC PROGRESS REPORT ---
Subjective Progress Note for:: 03/29/18 Subjective:: Patient seen by the bedside,, patient may be downgraded to medical floor, the nurse stated that discharge planning is finding a new place for patient Reason For Visit: HYPOTHERMIA,HYPOTENSION Physical Exam Vital Signs: Temp Pulse Resp BP Pulse Ox 97.2 F 56 L 16 102/61 100 03/29/18 19:25 03/29/18 19:25 03/29/18 19:25 03/29/18 19:25 03/29/18 19:25 Intake & Output 03/28/18 03/29/18 03/30/18 06:59 06:59 06:59 Intake Total 4600 1078 375 Balance 4600 1078 375 Weight 76.6 kg 74.9 kg General appearance: PRESENT: no acute distress Eye exam: PRESENT: PERRLA Respiratory exam: PRESENT: clear to auscultation delores Cardiovascular exam: PRESENT: +S1, +S2 Neurological exam: PRESENT: alert Results Laboratory Results: 03/27/18 04:48 03/27/18 04:48 03/24/18 03/24/18 03/25/18 18:45 18:45 00:45 Creatine Kinase 670 H 414 H CK-MB (CK-2) 10.50 H Troponin I < 0.012 03/25/18 03/25/18 03/25/18 00:45 06:50 06:50 Creatine Kinase 318 H CK-MB (CK-2) 6.56 H 5.19 H Troponin I < 0.012 < 0.012 Impressions: Head CT 03/24/18 15:10 IMPRESSION: No acute intracranial changes. No skull fracture. Scalp hematomas. EVIDENCE OF ACUTE STROKE: NO. Chest X-Ray 03/24/18 15:59 IMPRESSION: 1 Low lung volumes. NO ACUTE RADIOGRAPHIC FINDING IN THE CHEST. Assessment & Plan - Diagnosis (1) Hypotension Qualifiers: Hypotension type: unspecified hypotension type Qualified Code(s): I95.9 - Hypotension, unspecified Is this a current diagnosis for this admission?: Yes (2) Hypothermia Qualifiers: Encounter type: subsequent encounter Qualified Code(s): T68.XXXD - Hypothermia, subsequent encounter Is this a current diagnosis for this admission?: Yes (3) Subclinical hypothyroidism Is this a current diagnosis for this admission?: Yes (4) Metabolic encephalopathy Is this a current diagnosis for this admission?: Yes (5) Hyperbilirubinemia Is this a current diagnosis for this admission?: Yes
[2018-03-29] MEDS: TEMAZEPAM 15 MG CAPSULE PO SCH (21:41)
[2018-03-29] MEDS: TRAZODONE HCL 50 MG TABLET PO SCH (21:44)
[2018-03-30] MEDS: LEVOTHYROXINE SODIUM 0.05 MG TABLET PO SCH (05:31)
[2018-03-30] MEDS: CLONAZEPAM 1 MG TABLET PO SCH ×2 (09:28→20:40)
[2018-03-30] MEDS: HYDROXYZINE PAMOATE 50 MG CAPSULE PO SCH ×2 (09:28→20:40)
[2018-03-30] MEDS: THIORIDAZINE HCL 50 MG TABLET PO SCH ×3 (09:29→20:41)
[2018-03-30] MEDS: VALPROATE SODIUM SYRUP 250 MG/5 ML UDCUP PO SCH ×2 (09:29→22:08)
[2018-03-30] MEDS: PSYLLIUM SEED-SF 5.85 GM PACKET PO SCH ×4 (09:29→22:08)
[2018-03-30] MEDS: OXCARBAZEPINE 300 MG/5 ML SUSP 250ML/BOTTLE PO SCH ×2 (09:31→23:21)
[2018-03-30 10:20] LABS: HEMATOCRIT 34.7 % (37.9-51.0); HEMOGLOBIN 11.8 g/dL (13.5-17.0); MEAN CORPUSCULAR VOLUME 85 fl (80-97); PLATELET COUNT 207 10^3/uL (150-450); RED BLOOD COUNT 4.07 10^6/uL (4.35-5.55); RED CELL DISTRIBUTION WIDTH 16.4 % (11.5-14.0); WHITE BLOOD COUNT 3.4 10^3/uL (4.0-10.5)
[2018-03-30] MEDS: ENOXAPARIN SODIUM INJ 40 MG/0.4 ML DISP.SYRIN SUBCUT SCH (10:36)
--- NOTE | 2018-03-30 18:29 | PDOC PROGRESS REPORT ---
Subjective Progress Note for:: 03/30/18 Subjective:: Patient is awaiting placement in a [facility], discharge planning is making arrangements for placement for this patient Reason For Visit: HYPOTHERMIA,HYPOTENSION Physical Exam Vital Signs: Temp Pulse Resp BP Pulse Ox 101 F H 56 L 18 101/60 100 03/30/18 12:00 03/30/18 14:00 03/30/18 12:00 03/30/18 12:00 03/30/18 12:00 Intake & Output 03/29/18 03/30/18 03/31/18 06:59 06:59 06:59 Intake Total 1078 1275 150 Balance 1078 1275 150 Weight 74.9 kg 76 kg General appearance: PRESENT: no acute distress Eye exam: PRESENT: PERRLA Respiratory exam: PRESENT: clear to auscultation delores Cardiovascular exam: PRESENT: +S1, +S2 GI/Abdominal exam: PRESENT: soft Results Laboratory Results: 03/30/18 10:10 03/27/18 04:48 03/30/18 10:10 WBC 3.4 L RBC 4.07 L Hgb 11.8 L Hct 34.7 L MCV 85 MCH 29.0 MCHC 34.0 RDW 16.4 H Plt Count 207 03/24/18 03/24/18 03/25/18 18:45 18:45 00:45 Creatine Kinase 670 H 414 H CK-MB (CK-2) 10.50 H Troponin I < 0.012 03/25/18 03/25/18 03/25/18 00:45 06:50 06:50 Creatine Kinase 318 H CK-MB (CK-2) 6.56 H 5.19 H Troponin I < 0.012 < 0.012 Impressions: Head CT 03/24/18 15:10 IMPRESSION: No acute intracranial changes. No skull fracture. Scalp hematomas. EVIDENCE OF ACUTE STROKE: NO. Chest X-Ray 03/24/18 15:59 IMPRESSION: 1 Low lung volumes. NO ACUTE RADIOGRAPHIC FINDING IN THE CHEST. Assessment & Plan - Diagnosis (1) Hypotension Qualifiers: Hypotension type: unspecified hypotension type Qualified Code(s): I95.9 - Hypotension, unspecified Is this a current diagnosis for this admission?: Yes (2) Hypothermia Qualifiers: Encounter type: subsequent encounter Qualified Code(s): T68.XXXD - Hypothermia, subsequent encounter Is this a current diagnosis for this admission?: Yes (3) Subclinical hypothyroidism Is this a current diagnosis for this admission?: Yes (4) Metabolic encephalopathy Is this a current diagnosis for this admission?: Yes (5) Hyperbilirubinemia Is this a current diagnosis for this admission?: Yes
[2018-03-30] MEDS: TEMAZEPAM 15 MG CAPSULE PO SCH (20:39)
[2018-03-30] MEDS: TRAZODONE HCL 50 MG TABLET PO SCH (22:09)
[2018-03-30] MEDS ORDERED: OXCARBAZEPINE 150 MG TABLET ONE (22:42)
[2018-03-31] MEDS: LEVOTHYROXINE SODIUM 0.05 MG TABLET PO SCH (05:55)
[2018-03-31] MEDS: CLONAZEPAM 1 MG TABLET PO SCH ×2 (07:12→20:03)
[2018-03-31] MEDS: THIORIDAZINE HCL 50 MG TABLET PO SCH ×3 (07:12→20:03)
[2018-03-31] MEDS: HYDROXYZINE PAMOATE 50 MG CAPSULE PO SCH ×2 (07:12→20:02)
[2018-03-31] MEDS: VALPROATE SODIUM SYRUP 250 MG/5 ML UDCUP PO SCH ×2 (09:48→22:39)
[2018-03-31] MEDS: OXCARBAZEPINE 300 MG/5 ML SUSP 250ML/BOTTLE PO SCH ×2 (09:49→22:34)
[2018-03-31] MEDS: PSYLLIUM SEED-SF 5.85 GM PACKET PO SCH ×4 (09:49→22:36)
[2018-03-31] MEDS: ENOXAPARIN SODIUM INJ 40 MG/0.4 ML DISP.SYRIN SUBCUT SCH (09:50)
--- NOTE | 2018-03-31 17:54 | PDOC PROGRESS REPORT ---
Subjective Progress Note for:: 03/31/18 Subjective:: I saw the patient's mother in the room ,had a long discussion with her Today regarding patient disposition and overall clinical condition Reason For Visit: HYPOTHERMIA,HYPOTENSION Physical Exam Vital Signs: Temp Pulse Resp BP Pulse Ox 97.2 F 50 L 16 83/45 L 100 03/31/18 11:32 03/31/18 15:38 03/31/18 15:38 03/31/18 15:38 03/31/18 15:38 Intake & Output 03/30/18 03/31/18 04/01/18 06:59 06:59 06:59 Intake Total 1275 190 250 Balance 1275 190 250 Weight 76 kg 77 kg General appearance: PRESENT: no acute distress Eye exam: PRESENT: PERRLA Respiratory exam: PRESENT: clear to auscultation delores Cardiovascular exam: PRESENT: +S1, +S2 Neurological exam: PRESENT: alert Results Laboratory Results: 03/30/18 10:10 03/27/18 04:48 03/24/18 03/24/18 03/25/18 18:45 18:45 00:45 Creatine Kinase 670 H 414 H CK-MB (CK-2) 10.50 H Troponin I < 0.012 03/25/18 03/25/18 03/25/18 00:45 06:50 06:50 Creatine Kinase 318 H CK-MB (CK-2) 6.56 H 5.19 H Troponin I < 0.012 < 0.012 Impressions: Head CT 03/24/18 15:10 IMPRESSION: No acute intracranial changes. No skull fracture. Scalp hematomas. EVIDENCE OF ACUTE STROKE: NO. Chest X-Ray 03/24/18 15:59 IMPRESSION: 1 Low lung volumes. NO ACUTE RADIOGRAPHIC FINDING IN THE CHEST. Assessment & Plan - Diagnosis (1) Hypotension Qualifiers: Hypotension type: unspecified hypotension type Qualified Code(s): I95.9 - Hypotension, unspecified Is this a current diagnosis for this admission?: Yes (2) Hypothermia Qualifiers: Encounter type: subsequent encounter Qualified Code(s): T68.XXXD - Hypothermia, subsequent encounter Is this a current diagnosis for this admission?: Yes (3) Subclinical hypothyroidism Is this a current diagnosis for this admission?: Yes (4) Metabolic encephalopathy Is this a current diagnosis for this admission?: Yes (5) Hyperbilirubinemia Is this a current diagnosis for this admission?: Yes
[2018-03-31] MEDS: TEMAZEPAM 15 MG CAPSULE PO SCH (20:02)
[2018-03-31] MEDS: TRAZODONE HCL 50 MG TABLET PO SCH (22:39)
[2018-04-01] MEDS: LORAZEPAM INJ 2 MG/1 ML VIAL IV PRN ×2 (03:13→23:42)
[2018-04-01] MEDS: CLONAZEPAM 1 MG TABLET PO SCH (05:30)
[2018-04-01] MEDS: THIORIDAZINE HCL 50 MG TABLET PO SCH ×3 (05:31→20:23)
[2018-04-01] MEDS: LEVOTHYROXINE SODIUM 0.05 MG TABLET PO SCH (05:31)
[2018-04-01] MEDS: HYDROXYZINE PAMOATE 50 MG CAPSULE PO SCH ×2 (05:31→20:23)
[2018-04-01] MEDS: ENOXAPARIN SODIUM INJ 40 MG/0.4 ML DISP.SYRIN SUBCUT SCH (10:02)
[2018-04-01] MEDS: PSYLLIUM SEED-SF 5.85 GM PACKET PO SCH ×4 (10:02→22:11)
[2018-04-01] MEDS: VALPROATE SODIUM SYRUP 250 MG/5 ML UDCUP PO SCH ×2 (10:03→22:11)
[2018-04-01] MEDS: OXCARBAZEPINE 300 MG/5 ML SUSP 250ML/BOTTLE PO SCH ×2 (10:03→22:17)
--- NOTE | 2018-04-01 20:41 | PDOC PROGRESS REPORT ---
Subjective Progress Note for:: 04/01/18 Subjective:: Patient is seen by the bedside, discharge planning is making arrangement for replacement in a skilled nursing Reason For Visit: HYPOTHERMIA,HYPOTENSION Physical Exam Vital Signs: Temp Pulse Resp BP Pulse Ox 97.5 F 67 19 75/55 L 97 04/01/18 14:48 04/01/18 14:48 04/01/18 19:32 04/01/18 19:32 04/01/18 14:48 Intake & Output 03/31/18 04/01/18 04/02/18 06:59 06:59 06:59 Intake Total 190 1164 1571 Balance 190 1164 1571 Weight 77 kg 80.9 kg General appearance: PRESENT: no acute distress Eye exam: PRESENT: PERRLA Respiratory exam: PRESENT: clear to auscultation delores Cardiovascular exam: PRESENT: +S1, +S2 GI/Abdominal exam: PRESENT: soft Neurological exam: PRESENT: alert Results Laboratory Results: 03/30/18 10:10 03/27/18 04:48 03/24/18 03/24/18 03/25/18 18:45 18:45 00:45 Creatine Kinase 670 H 414 H CK-MB (CK-2) 10.50 H Troponin I < 0.012 03/25/18 03/25/18 03/25/18 00:45 06:50 06:50 Creatine Kinase 318 H CK-MB (CK-2) 6.56 H 5.19 H Troponin I < 0.012 < 0.012 Impressions: Head CT 03/24/18 15:10 IMPRESSION: No acute intracranial changes. No skull fracture. Scalp hematomas. EVIDENCE OF ACUTE STROKE: NO. Chest X-Ray 03/24/18 15:59 IMPRESSION: 1 Low lung volumes. NO ACUTE RADIOGRAPHIC FINDING IN THE CHEST. Assessment & Plan - Diagnosis (1) Hypotension Qualifiers: Hypotension type: unspecified hypotension type Qualified Code(s): I95.9 - Hypotension, unspecified Is this a current diagnosis for this admission?: Yes (2) Hypothermia Qualifiers: Encounter type: subsequent encounter Qualified Code(s): T68.XXXD - Hypothermia, subsequent encounter Is this a current diagnosis for this admission?: Yes (3) Subclinical hypothyroidism Is this a current diagnosis for this admission?: Yes (4) Metabolic encephalopathy Is this a current diagnosis for this admission?: Yes (5) Hyperbilirubinemia Is this a current diagnosis for this admission?: Yes
[2018-04-01] MEDS: TRAZODONE HCL 50 MG TABLET PO SCH (22:10)
[2018-04-02] MEDS: LEVOTHYROXINE SODIUM 0.05 MG TABLET PO SCH (06:20)
[2018-04-02] MEDS: PSYLLIUM SEED-SF 5.85 GM PACKET PO SCH ×4 (11:43→21:03)
[2018-04-02] MEDS: THIORIDAZINE HCL 50 MG TABLET PO SCH ×3 (11:43→20:05)
[2018-04-02] MEDS: VALPROATE SODIUM SYRUP 250 MG/5 ML UDCUP PO SCH ×2 (11:43→21:03)
[2018-04-02] MEDS: HYDROXYZINE PAMOATE 50 MG CAPSULE PO SCH ×2 (11:43→20:05)
[2018-04-02] MEDS: OXCARBAZEPINE 300 MG/5 ML SUSP 250ML/BOTTLE PO SCH ×2 (11:44→21:04)
[2018-04-02] MEDS: ENOXAPARIN SODIUM INJ 40 MG/0.4 ML DISP.SYRIN SUBCUT SCH (11:46)
--- NOTE | 2018-04-02 13:10 | PDOC PROGRESS REPORT ---
Subjective Progress Note for:: 04/02/18 Subjective:: There is no new complaints Reason For Visit: HYPOTHERMIA,HYPOTENSION Physical Exam Vital Signs: Temp Pulse Resp BP Pulse Ox 97.4 F 62 18 111/65 98 04/02/18 11:30 04/02/18 11:30 04/02/18 11:30 04/02/18 11:30 04/02/18 11:30 Intake & Output 04/01/18 04/02/18 04/03/18 06:59 06:59 06:59 Intake Total 1164 1936 200 Balance 1164 1936 200 Weight 80.9 kg 81.6 kg General appearance: PRESENT: no acute distress Cardiovascular exam: PRESENT: +S1, +S2 GI/Abdominal exam: PRESENT: soft Neurological exam: PRESENT: alert Results Laboratory Results: 03/30/18 10:10 03/27/18 04:48 03/24/18 03/24/18 03/25/18 18:45 18:45 00:45 Creatine Kinase 670 H 414 H CK-MB (CK-2) 10.50 H Troponin I < 0.012 03/25/18 03/25/18 03/25/18 00:45 06:50 06:50 Creatine Kinase 318 H CK-MB (CK-2) 6.56 H 5.19 H Troponin I < 0.012 < 0.012 Impressions: Head CT 03/24/18 15:10 IMPRESSION: No acute intracranial changes. No skull fracture. Scalp hematomas. EVIDENCE OF ACUTE STROKE: NO. Chest X-Ray 03/24/18 15:59 IMPRESSION: 1 Low lung volumes. NO ACUTE RADIOGRAPHIC FINDING IN THE CHEST. Assessment & Plan - Diagnosis (1) Hypotension Qualifiers: Hypotension type: unspecified hypotension type Qualified Code(s): I95.9 - Hypotension, unspecified Is this a current diagnosis for this admission?: Yes (2) Hypothermia Qualifiers: Encounter type: subsequent encounter Qualified Code(s): T68.XXXD - Hypothermia, subsequent encounter Is this a current diagnosis for this admission?: Yes (3) Subclinical hypothyroidism Is this a current diagnosis for this admission?: Yes (4) Metabolic encephalopathy Is this a current diagnosis for this admission?: Yes (5) Hyperbilirubinemia Is this a current diagnosis for this admission?: Yes
[2018-04-02] MEDS: TRAZODONE HCL 50 MG TABLET PO SCH (21:03)
[2018-04-02] MEDS: LORAZEPAM INJ 2 MG/1 ML VIAL IV PRN (22:59)
[2018-04-03] MEDS: LEVOTHYROXINE SODIUM 0.05 MG TABLET PO SCH (06:12)
[2018-04-03] MEDS: THIORIDAZINE HCL 50 MG TABLET PO SCH ×3 (08:19→20:11)
[2018-04-03] MEDS: HYDROXYZINE PAMOATE 50 MG CAPSULE PO SCH ×2 (08:20→20:11)
[2018-04-03] MEDS: OXCARBAZEPINE 300 MG/5 ML SUSP 250ML/BOTTLE PO SCH ×2 (09:07→21:08)
[2018-04-03] MEDS: ENOXAPARIN SODIUM INJ 40 MG/0.4 ML DISP.SYRIN SUBCUT SCH (09:09)
[2018-04-03] MEDS: VALPROATE SODIUM SYRUP 250 MG/5 ML UDCUP PO SCH ×2 (09:13→21:07)
[2018-04-03] MEDS: PSYLLIUM SEED-SF 5.85 GM PACKET PO SCH ×4 (09:13→21:07)
[2018-04-03 14:35] LABS: MEAN CORPUSCULAR HEMOGLOBIN 29.3 pg (27.0-33.4); MEAN CORPUSCULAR HGB CONC 34.3 g/dL (32.0-36.0); MEAN CORPUSCULAR VOLUME 85 fl (80-97); PLATELET COUNT 340 10^3/uL (150-450); RED CELL DISTRIBUTION WIDTH 16.6 % (11.5-14.0)
[2018-04-03 14:50] LABS: ANION GAP 12 (5-19); BLOOD UREA NITROGEN 13 mg/dL (7-20); CALCIUM 9.9 mg/dL (8.4-10.2); CARBON DIOXIDE 29 mmol/L (22-30); CHLORIDE 96 mmol/L (98-107); GLUCOSE 100 mg/dL (75-110); POTASSIUM 4.4 mmol/L (3.6-5.0); SODIUM 136.5 mmol/L (137-145)
--- NOTE | 2018-04-03 16:00 | PDOC PROGRESS REPORT ---
Subjective Progress Note for:: 04/03/18 Subjective:: There is no new complaints patient awaiting placement Reason For Visit: HYPOTHERMIA,HYPOTENSION Physical Exam Vital Signs: Temp Pulse Resp BP Pulse Ox 97.6 F 74 17 117/98 H 96 04/03/18 15:24 04/03/18 15:24 04/03/18 15:24 04/03/18 15:24 04/03/18 15:24 Intake & Output 04/02/18 04/03/18 04/04/18 06:59 06:59 06:59 Intake Total 1936 410 354 Balance 1936 410 354 Weight 81.6 kg 81.8 kg General appearance: PRESENT: no acute distress Eye exam: PRESENT: PERRLA Respiratory exam: PRESENT: clear to auscultation delores Cardiovascular exam: PRESENT: +S1, +S2 Neurological exam: PRESENT: alert Results Laboratory Results: 04/03/18 14:24 04/03/18 14:24 04/03/18 04/03/18 14:24 14:24 WBC 5.0 RBC 4.10 L Hgb 12.0 L Hct 35.0 L MCV 85 MCH 29.3 MCHC 34.3 RDW 16.6 H Plt Count 340 Sodium 136.5 L Potassium 4.4 Chloride 96 L Carbon Dioxide 29 Anion Gap 12 BUN 13 Creatinine 0.69 Est GFR ( Amer) > 60 Est GFR (Non-Af Amer) > 60 Glucose 100 Calcium 9.9 03/24/18 03/24/18 03/25/18 18:45 18:45 00:45 Creatine Kinase 670 H 414 H CK-MB (CK-2) 10.50 H Troponin I < 0.012 03/25/18 03/25/18 03/25/18 00:45 06:50 06:50 Creatine Kinase 318 H CK-MB (CK-2) 6.56 H 5.19 H Troponin I < 0.012 < 0.012 Impressions: Head CT 03/24/18 15:10 IMPRESSION: No acute intracranial changes. No skull fracture. Scalp hematomas. EVIDENCE OF ACUTE STROKE: NO. Chest X-Ray 03/24/18 15:59 IMPRESSION: 1 Low lung volumes. NO ACUTE RADIOGRAPHIC FINDING IN THE CHEST. Assessment & Plan - Diagnosis (1) Hypotension Qualifiers: Hypotension type: unspecified hypotension type Qualified Code(s): I95.9 - Hypotension, unspecified Is this a current diagnosis for this admission?: Yes (2) Hypothermia Qualifiers: Encounter type: subsequent encounter Qualified Code(s): T68.XXXD - Hypothermia, subsequent encounter Is this a current diagnosis for this admission?: Yes (3) Subclinical hypothyroidism Is this a current diagnosis for this admission?: Yes (4) Metabolic encephalopathy Is this a current diagnosis for this admission?: Yes (5) Hyperbilirubinemia Is this a current diagnosis for this admission?: Yes
[2018-04-03] MEDS: TRAZODONE HCL 50 MG TABLET PO SCH (21:07)
[2018-04-04] MEDS: LORAZEPAM INJ 2 MG/1 ML VIAL IV PRN (01:18)
[2018-04-04] MEDS: LEVOTHYROXINE SODIUM 0.05 MG TABLET PO SCH (05:12)
[2018-04-04] MEDS: ENOXAPARIN SODIUM INJ 40 MG/0.4 ML DISP.SYRIN SUBCUT SCH (09:10)
[2018-04-04] MEDS: PSYLLIUM SEED-SF 5.85 GM PACKET PO SCH ×4 (09:11→21:04)
[2018-04-04] MEDS: HYDROXYZINE PAMOATE 50 MG CAPSULE PO SCH ×2 (09:11→19:46)
[2018-04-04] MEDS: THIORIDAZINE HCL 50 MG TABLET PO SCH ×3 (09:12→19:46)
[2018-04-04] MEDS: VALPROATE SODIUM SYRUP 250 MG/5 ML UDCUP PO SCH ×2 (09:12→21:04)
[2018-04-04] MEDS: OXCARBAZEPINE 300 MG/5 ML SUSP 250ML/BOTTLE PO SCH ×2 (09:12→21:04)
[2018-04-04] MEDS: TRAZODONE HCL 50 MG TABLET PO SCH (21:04)
--- NOTE | 2018-04-04 21:10 | PDOC PROGRESS REPORT ---
Subjective Progress Note for:: 04/04/18 Subjective:: There is no new complaint, awaiting placement Reason For Visit: HYPOTHERMIA,HYPOTENSION Physical Exam Vital Signs: Temp Pulse Resp BP Pulse Ox 100 F 122 H 18 117/42 L 91 L 04/04/18 20:00 04/04/18 20:00 04/04/18 20:00 04/04/18 20:00 04/04/18 20:00 Intake & Output 04/03/18 04/04/18 04/05/18 06:59 06:59 06:59 Intake Total 410 1251 927 Balance 410 1251 927 Weight 81.8 kg 79.1 kg General appearance: PRESENT: no acute distress Eye exam: PRESENT: PERRLA Respiratory exam: PRESENT: clear to auscultation delores Cardiovascular exam: PRESENT: +S1, +S2 GI/Abdominal exam: PRESENT: soft Neurological exam: PRESENT: alert Results Laboratory Results: 04/03/18 14:24 04/03/18 14:24 03/24/18 03/24/18 03/25/18 18:45 18:45 00:45 Creatine Kinase 670 H 414 H CK-MB (CK-2) 10.50 H Troponin I < 0.012 03/25/18 03/25/18 03/25/18 00:45 06:50 06:50 Creatine Kinase 318 H CK-MB (CK-2) 6.56 H 5.19 H Troponin I < 0.012 < 0.012 Impressions: Head CT 03/24/18 15:10 IMPRESSION: No acute intracranial changes. No skull fracture. Scalp hematomas. EVIDENCE OF ACUTE STROKE: NO. Chest X-Ray 03/24/18 15:59 IMPRESSION: 1 Low lung volumes. NO ACUTE RADIOGRAPHIC FINDING IN THE CHEST. Assessment & Plan - Diagnosis (1) Hypotension Qualifiers: Hypotension type: unspecified hypotension type Qualified Code(s): I95.9 - Hypotension, unspecified Is this a current diagnosis for this admission?: Yes (2) Hypothermia Qualifiers: Encounter type: subsequent encounter Qualified Code(s): T68.XXXD - Hypothermia, subsequent encounter Is this a current diagnosis for this admission?: Yes (3) Subclinical hypothyroidism Is this a current diagnosis for this admission?: Yes (4) Metabolic encephalopathy Is this a current diagnosis for this admission?: Yes (5) Hyperbilirubinemia Is this a current diagnosis for this admission?: Yes
[2018-04-05] MEDS: LORAZEPAM INJ 2 MG/1 ML VIAL IV PRN ×2 (00:14→23:49)
[2018-04-05] MEDS: LEVOTHYROXINE SODIUM 0.05 MG TABLET PO SCH (05:47)
[2018-04-05] MEDS: THIORIDAZINE HCL 25 MG TABLET PO SCH ×3 (07:40→20:39)
[2018-04-05] MEDS: HYDROXYZINE PAMOATE 50 MG CAPSULE PO SCH ×2 (07:40→20:39)
[2018-04-05] MEDS: VALPROATE SODIUM SYRUP 250 MG/5 ML UDCUP PO SCH ×2 (09:36→21:25)
[2018-04-05] MEDS: ENOXAPARIN SODIUM INJ 40 MG/0.4 ML DISP.SYRIN SUBCUT SCH (09:36)
[2018-04-05] MEDS: PSYLLIUM SEED-SF 5.85 GM PACKET PO SCH ×4 (09:37→21:25)
[2018-04-05] MEDS: OXCARBAZEPINE 300 MG/5 ML SUSP 250ML/BOTTLE PO SCH ×2 (09:39→21:25)
[2018-04-05] MEDS: TRAZODONE HCL 50 MG TABLET PO SCH (21:24)
--- NOTE | 2018-04-05 22:20 | PDOC PROGRESS REPORT ---
Subjective Progress Note for:: 04/05/18 Subjective:: No new complaints awaiting placement Reason For Visit: HYPOTHERMIA,HYPOTENSION Physical Exam Vital Signs: Temp Pulse Resp BP Pulse Ox 98.3 F 71 18 109/82 95 04/05/18 11:39 04/05/18 11:39 04/05/18 11:39 04/05/18 11:39 04/05/18 11:39 Intake & Output 04/04/18 04/05/18 04/06/18 06:59 06:59 06:59 Intake Total 1251 1174 966 Balance 1251 1174 966 Weight 79.1 kg 79.6 kg General appearance: PRESENT: no acute distress Eye exam: PRESENT: PERRLA Respiratory exam: PRESENT: clear to auscultation delores Cardiovascular exam: PRESENT: +S1, +S2 GI/Abdominal exam: PRESENT: soft Results Laboratory Results: 04/03/18 14:24 04/03/18 14:24 03/24/18 03/24/18 03/25/18 18:45 18:45 00:45 Creatine Kinase 670 H 414 H CK-MB (CK-2) 10.50 H Troponin I < 0.012 03/25/18 03/25/18 03/25/18 00:45 06:50 06:50 Creatine Kinase 318 H CK-MB (CK-2) 6.56 H 5.19 H Troponin I < 0.012 < 0.012 Impressions: Head CT 03/24/18 15:10 IMPRESSION: No acute intracranial changes. No skull fracture. Scalp hematomas. EVIDENCE OF ACUTE STROKE: NO. Chest X-Ray 03/24/18 15:59 IMPRESSION: 1 Low lung volumes. NO ACUTE RADIOGRAPHIC FINDING IN THE CHEST. Assessment & Plan - Diagnosis (1) Hypotension Qualifiers: Hypotension type: unspecified hypotension type Qualified Code(s): I95.9 - Hypotension, unspecified Is this a current diagnosis for this admission?: Yes (2) Hypothermia Qualifiers: Encounter type: subsequent encounter Qualified Code(s): T68.XXXD - Hypothermia, subsequent encounter Is this a current diagnosis for this admission?: Yes (3) Subclinical hypothyroidism Is this a current diagnosis for this admission?: Yes (4) Metabolic encephalopathy Is this a current diagnosis for this admission?: Yes (5) Hyperbilirubinemia Is this a current diagnosis for this admission?: Yes
[2018-04-06] MEDS: LEVOTHYROXINE SODIUM 0.05 MG TABLET PO SCH (06:12)
[2018-04-06] MEDS: THIORIDAZINE HCL 25 MG TABLET PO SCH ×3 (08:02→21:04)
[2018-04-06] MEDS: HYDROXYZINE PAMOATE 50 MG CAPSULE PO SCH ×2 (08:02→21:03)
[2018-04-06] MEDS: PSYLLIUM SEED-SF 5.85 GM PACKET PO SCH ×4 (09:32→21:09)
[2018-04-06] MEDS: VALPROATE SODIUM SYRUP 250 MG/5 ML UDCUP PO SCH ×2 (09:32→21:04)
[2018-04-06] MEDS: LORAZEPAM INJ 2 MG/1 ML VIAL IV PRN (09:32)
[2018-04-06] MEDS: OXCARBAZEPINE 300 MG/5 ML SUSP 250ML/BOTTLE PO SCH ×2 (09:32→21:07)
[2018-04-06] MEDS: ENOXAPARIN SODIUM INJ 40 MG/0.4 ML DISP.SYRIN SUBCUT SCH (11:18)
--- NOTE | 2018-04-06 20:51 | PDOC PROGRESS REPORT ---
Subjective Progress Note for:: 04/06/18 Subjective:: Patient with no new complaints awaiting bed placement Reason For Visit: HYPOTHERMIA,HYPOTENSION Physical Exam Vital Signs: Temp Pulse Resp BP Pulse Ox 97.9 F 81 18 116/62 98 04/06/18 07:43 04/06/18 07:43 04/06/18 07:43 04/06/18 07:43 04/06/18 07:43 Intake & Output 04/05/18 04/06/18 04/07/18 06:59 06:59 06:59 Intake Total 1174 1567 706 Balance 1174 1567 706 Weight 79.6 kg 78 kg General appearance: PRESENT: no acute distress Eye exam: PRESENT: PERRLA Respiratory exam: PRESENT: clear to auscultation delores Cardiovascular exam: PRESENT: +S1, +S2 GI/Abdominal exam: PRESENT: soft Neurological exam: PRESENT: alert Results Laboratory Results: 04/03/18 14:24 04/03/18 14:24 03/24/18 03/24/18 03/25/18 18:45 18:45 00:45 Creatine Kinase 670 H 414 H CK-MB (CK-2) 10.50 H Troponin I < 0.012 03/25/18 03/25/18 03/25/18 00:45 06:50 06:50 Creatine Kinase 318 H CK-MB (CK-2) 6.56 H 5.19 H Troponin I < 0.012 < 0.012 Impressions: Head CT 03/24/18 15:10 IMPRESSION: No acute intracranial changes. No skull fracture. Scalp hematomas. EVIDENCE OF ACUTE STROKE: NO. Chest X-Ray 03/24/18 15:59 IMPRESSION: 1 Low lung volumes. NO ACUTE RADIOGRAPHIC FINDING IN THE CHEST. Assessment & Plan - Diagnosis (1) Hypotension Qualifiers: Hypotension type: unspecified hypotension type Qualified Code(s): I95.9 - Hypotension, unspecified Is this a current diagnosis for this admission?: Yes (2) Hypothermia Qualifiers: Encounter type: subsequent encounter Qualified Code(s): T68.XXXD - Hypothermia, subsequent encounter Is this a current diagnosis for this admission?: Yes (3) Subclinical hypothyroidism Is this a current diagnosis for this admission?: Yes (4) Metabolic encephalopathy Is this a current diagnosis for this admission?: Yes (5) Hyperbilirubinemia Is this a current diagnosis for this admission?: Yes
[2018-04-06] MEDS: TRAZODONE HCL 50 MG TABLET PO SCH (21:04)
[2018-04-07] MEDS: LORAZEPAM INJ 2 MG/1 ML VIAL IV PRN (02:42)
[2018-04-07] MEDS: LEVOTHYROXINE SODIUM 0.05 MG TABLET PO SCH (06:58)
[2018-04-07] MEDS: OXCARBAZEPINE 300 MG/5 ML SUSP 250ML/BOTTLE PO SCH ×2 (09:00→21:49)
[2018-04-07] MEDS: PSYLLIUM SEED-SF 5.85 GM PACKET PO SCH ×4 (09:00→21:48)
[2018-04-07] MEDS: ENOXAPARIN SODIUM INJ 40 MG/0.4 ML DISP.SYRIN SUBCUT SCH (09:01)
[2018-04-07] MEDS: THIORIDAZINE HCL 25 MG TABLET PO SCH ×3 (09:18→21:48)
[2018-04-07] MEDS: HYDROXYZINE PAMOATE 50 MG CAPSULE PO SCH ×2 (09:19→21:48)
[2018-04-07] MEDS: VALPROATE SODIUM SYRUP 250 MG/5 ML UDCUP PO SCH ×2 (09:19→21:48)
--- NOTE | 2018-04-07 19:30 | PDOC PROGRESS REPORT ---
Subjective Progress Note for:: 04/07/18 Subjective:: Patient with no new complaints awaiting bed placement Reason For Visit: HYPOTHERMIA,HYPOTENSION Physical Exam Vital Signs: Temp Pulse Resp BP Pulse Ox 98.7 F 87 18 119/65 100 04/07/18 15:26 04/07/18 15:26 04/07/18 15:26 04/07/18 15:26 04/07/18 15:26 Intake & Output 04/06/18 04/07/18 04/08/18 06:59 06:59 06:59 Intake Total 5378 504 3146 Balance 2864 645 6317 Weight 78 kg 77.1 kg General appearance: PRESENT: no acute distress Eye exam: PRESENT: PERRLA Respiratory exam: PRESENT: clear to auscultation delores Cardiovascular exam: PRESENT: +S1, +S2 GI/Abdominal exam: PRESENT: soft Neurological exam: PRESENT: alert Results Laboratory Results: 04/03/18 14:24 04/03/18 14:24 03/24/18 03/24/18 03/25/18 18:45 18:45 00:45 Creatine Kinase 670 H 414 H CK-MB (CK-2) 10.50 H Troponin I < 0.012 03/25/18 03/25/18 03/25/18 00:45 06:50 06:50 Creatine Kinase 318 H CK-MB (CK-2) 6.56 H 5.19 H Troponin I < 0.012 < 0.012 Impressions: Head CT 03/24/18 15:10 IMPRESSION: No acute intracranial changes. No skull fracture. Scalp hematomas. EVIDENCE OF ACUTE STROKE: NO. Chest X-Ray 03/24/18 15:59 IMPRESSION: 1 Low lung volumes. NO ACUTE RADIOGRAPHIC FINDING IN THE CHEST. Assessment & Plan - Diagnosis (1) Hypotension Qualifiers: Hypotension type: unspecified hypotension type Qualified Code(s): I95.9 - Hypotension, unspecified Is this a current diagnosis for this admission?: Yes (2) Hypothermia Qualifiers: Encounter type: subsequent encounter Qualified Code(s): T68.XXXD - Hypothermia, subsequent encounter Is this a current diagnosis for this admission?: Yes (3) Subclinical hypothyroidism Is this a current diagnosis for this admission?: Yes (4) Metabolic encephalopathy Is this a current diagnosis for this admission?: Yes (5) Hyperbilirubinemia Is this a current diagnosis for this admission?: Yes
[2018-04-07] MEDS: TRAZODONE HCL 50 MG TABLET PO SCH (21:48)
[2018-04-08] MEDS: LEVOTHYROXINE SODIUM 0.05 MG TABLET PO SCH (06:11)
[2018-04-08] MEDS: HYDROXYZINE PAMOATE 50 MG CAPSULE PO SCH ×2 (09:06→22:14)
[2018-04-08] MEDS: THIORIDAZINE HCL 25 MG TABLET PO SCH ×3 (09:06→22:14)
[2018-04-08] MEDS: PSYLLIUM SEED-SF 5.85 GM PACKET PO SCH ×4 (09:07→22:14)
[2018-04-08] MEDS: VALPROATE SODIUM SYRUP 250 MG/5 ML UDCUP PO SCH ×2 (09:07→22:14)
[2018-04-08] MEDS: ENOXAPARIN SODIUM INJ 40 MG/0.4 ML DISP.SYRIN SUBCUT SCH (09:07)
[2018-04-08] MEDS: OXCARBAZEPINE 300 MG/5 ML SUSP 250ML/BOTTLE PO SCH ×2 (09:08→22:14)
--- NOTE | 2018-04-08 20:54 | PDOC PROGRESS REPORT ---
Subjective Progress Note for:: 04/08/18 Subjective:: There is no new complaints Reason For Visit: HYPOTHERMIA,HYPOTENSION Physical Exam Vital Signs: Temp Pulse Resp BP Pulse Ox 98.1 F 72 16 100/53 L 91 L 04/08/18 19:42 04/08/18 19:42 04/08/18 19:42 04/08/18 19:42 04/08/18 19:42 Intake & Output 04/07/18 04/08/18 04/09/18 06:59 06:59 06:59 Intake Total 856 1463 710 Balance 856 1463 710 Weight 77.1 kg 74.6 kg General appearance: PRESENT: no acute distress Head exam: PRESENT: atraumatic, normocephalic Eye exam: PRESENT: PERRLA Respiratory exam: PRESENT: clear to auscultation delores Cardiovascular exam: PRESENT: RRR, +S1, +S2 Vascular exam: PRESENT: normal capillary refill GI/Abdominal exam: PRESENT: normal bowel sounds, soft Rectal exam: PRESENT: deferred Neurological exam: PRESENT: alert, awake, oriented to person, oriented to place , oriented to time, oriented to situation, CN II-XII grossly intact Psychiatric exam: PRESENT: appropriate affect, normal mood Skin exam: PRESENT: dry, intact, warm Results Laboratory Results: 04/03/18 14:24 04/03/18 14:24 03/24/18 03/24/18 03/25/18 18:45 18:45 00:45 Creatine Kinase 670 H 414 H CK-MB (CK-2) 10.50 H Troponin I < 0.012 03/25/18 03/25/18 03/25/18 00:45 06:50 06:50 Creatine Kinase 318 H CK-MB (CK-2) 6.56 H 5.19 H Troponin I < 0.012 < 0.012 Impressions: Head CT 03/24/18 15:10 IMPRESSION: No acute intracranial changes. No skull fracture. Scalp hematomas. EVIDENCE OF ACUTE STROKE: NO. Chest X-Ray 03/24/18 15:59 IMPRESSION: 1 Low lung volumes. NO ACUTE RADIOGRAPHIC FINDING IN THE CHEST. Assessment & Plan - Diagnosis (1) Hypotension Qualifiers: Hypotension type: unspecified hypotension type Qualified Code(s): I95.9 - Hypotension, unspecified Is this a current diagnosis for this admission?: Yes (2) Hypothermia Qualifiers: Encounter type: subsequent encounter Qualified Code(s): T68.XXXD - Hypothermia, subsequent encounter Is this a current diagnosis for this admission?: Yes (3) Subclinical hypothyroidism Is this a current diagnosis for this admission?: Yes (4) Metabolic encephalopathy Is this a current diagnosis for this admission?: Yes (5) Hyperbilirubinemia Is this a current diagnosis for this admission?: Yes
[2018-04-08] MEDS: TRAZODONE HCL 50 MG TABLET PO SCH (22:14)
[2018-04-09] MEDS: LEVOTHYROXINE SODIUM 0.05 MG TABLET PO SCH (05:55)
[2018-04-09] MEDS: HYDROXYZINE PAMOATE 50 MG CAPSULE PO SCH ×2 (07:24→20:53)
[2018-04-09] MEDS: THIORIDAZINE HCL 25 MG TABLET PO SCH ×3 (07:24→20:54)
[2018-04-09] MEDS: ENOXAPARIN SODIUM INJ 40 MG/0.4 ML DISP.SYRIN SUBCUT SCH (09:24)
[2018-04-09] MEDS: VALPROATE SODIUM SYRUP 250 MG/5 ML UDCUP PO SCH ×2 (09:25→20:53)
[2018-04-09] MEDS: PSYLLIUM SEED-SF 5.85 GM PACKET PO SCH ×4 (09:26→20:59)
[2018-04-09] MEDS: OXCARBAZEPINE 300 MG/5 ML SUSP 250ML/BOTTLE PO SCH ×2 (09:37→20:55)
--- NOTE | 2018-04-09 11:13 | PDOC PROGRESS REPORT ---
Subjective Progress Note for:: 04/09/18 Subjective:: There is no new complaints Reason For Visit: HYPOTHERMIA,HYPOTENSION Physical Exam Vital Signs: Temp Pulse Resp BP Pulse Ox 97.5 F 76 16 130/71 H 100 04/09/18 06:53 04/09/18 06:53 04/09/18 06:53 04/09/18 06:53 04/09/18 06:53 Intake & Output 04/08/18 04/09/18 04/10/18 06:59 06:59 06:59 Intake Total 1463 710 Balance 1463 710 Weight 74.6 kg 76.8 kg General appearance: PRESENT: no acute distress Eye exam: PRESENT: PERRLA Respiratory exam: PRESENT: clear to auscultation delores Cardiovascular exam: PRESENT: +S1, +S2 GI/Abdominal exam: PRESENT: soft Results Laboratory Results: 04/03/18 14:24 04/03/18 14:24 03/24/18 03/24/18 03/25/18 18:45 18:45 00:45 Creatine Kinase 670 H 414 H CK-MB (CK-2) 10.50 H Troponin I < 0.012 03/25/18 03/25/18 03/25/18 00:45 06:50 06:50 Creatine Kinase 318 H CK-MB (CK-2) 6.56 H 5.19 H Troponin I < 0.012 < 0.012 Impressions: Head CT 03/24/18 15:10 IMPRESSION: No acute intracranial changes. No skull fracture. Scalp hematomas. EVIDENCE OF ACUTE STROKE: NO. Chest X-Ray 03/24/18 15:59 IMPRESSION: 1 Low lung volumes. NO ACUTE RADIOGRAPHIC FINDING IN THE CHEST. Assessment & Plan - Diagnosis (1) Hypotension Qualifiers: Hypotension type: unspecified hypotension type Qualified Code(s): I95.9 - Hypotension, unspecified Is this a current diagnosis for this admission?: Yes (2) Hypothermia Qualifiers: Encounter type: subsequent encounter Qualified Code(s): T68.XXXD - Hypothermia, subsequent encounter Is this a current diagnosis for this admission?: Yes (3) Subclinical hypothyroidism Is this a current diagnosis for this admission?: Yes (4) Metabolic encephalopathy Is this a current diagnosis for this admission?: Yes (5) Hyperbilirubinemia Is this a current diagnosis for this admission?: Yes
[2018-04-09] MEDS: TRAZODONE HCL 50 MG TABLET PO SCH (20:54)
[2018-04-10] MEDS: LEVOTHYROXINE SODIUM 0.05 MG TABLET PO SCH (06:29)
[2018-04-10] MEDS: HYDROXYZINE PAMOATE 50 MG CAPSULE PO SCH ×2 (09:23→21:06)
[2018-04-10] MEDS: PSYLLIUM SEED-SF 5.85 GM PACKET PO SCH ×4 (09:23→21:12)
[2018-04-10] MEDS: THIORIDAZINE HCL 25 MG TABLET PO SCH ×3 (09:24→21:07)
[2018-04-10] MEDS: VALPROATE SODIUM SYRUP 250 MG/5 ML UDCUP PO SCH ×2 (09:24→21:07)
[2018-04-10] MEDS: ENOXAPARIN SODIUM INJ 40 MG/0.4 ML DISP.SYRIN SUBCUT SCH (09:24)
[2018-04-10] MEDS: OXCARBAZEPINE 300 MG/5 ML SUSP 250ML/BOTTLE PO SCH ×2 (09:25→21:09)
--- NOTE | 2018-04-10 12:28 | PDOC PROGRESS REPORT ---
Subjective Progress Note for:: 04/10/18 Subjective:: No new complaints awaiting placement Reason For Visit: HYPOTHERMIA,HYPOTENSION Physical Exam Vital Signs: Temp Pulse Resp BP Pulse Ox 97.9 F 83 18 121/71 100 04/10/18 11:23 04/10/18 11:23 04/10/18 11:23 04/10/18 11:23 04/10/18 11:23 Intake & Output 04/09/18 04/10/18 04/11/18 06:59 06:59 06:59 Intake Total 710 1305 Balance 710 1305 Weight 76.8 kg 85.9 kg General appearance: PRESENT: no acute distress Eye exam: PRESENT: PERRLA Respiratory exam: PRESENT: clear to auscultation delores Cardiovascular exam: PRESENT: +S1, +S2 Neurological exam: PRESENT: alert Results Laboratory Results: 04/03/18 14:24 04/03/18 14:24 03/24/18 03/24/18 03/25/18 18:45 18:45 00:45 Creatine Kinase 670 H 414 H CK-MB (CK-2) 10.50 H Troponin I < 0.012 03/25/18 03/25/18 03/25/18 00:45 06:50 06:50 Creatine Kinase 318 H CK-MB (CK-2) 6.56 H 5.19 H Troponin I < 0.012 < 0.012 Impressions: Head CT 03/24/18 15:10 IMPRESSION: No acute intracranial changes. No skull fracture. Scalp hematomas. EVIDENCE OF ACUTE STROKE: NO. Chest X-Ray 03/24/18 15:59 IMPRESSION: 1 Low lung volumes. NO ACUTE RADIOGRAPHIC FINDING IN THE CHEST. Assessment & Plan - Diagnosis (1) Hypotension Qualifiers: Hypotension type: unspecified hypotension type Qualified Code(s): I95.9 - Hypotension, unspecified Is this a current diagnosis for this admission?: Yes (2) Hypothermia Qualifiers: Encounter type: subsequent encounter Qualified Code(s): T68.XXXD - Hypothermia, subsequent encounter Is this a current diagnosis for this admission?: Yes (3) Subclinical hypothyroidism Is this a current diagnosis for this admission?: Yes (4) Metabolic encephalopathy Is this a current diagnosis for this admission?: Yes (5) Hyperbilirubinemia Is this a current diagnosis for this admission?: Yes
[2018-04-10] MEDS: TRAZODONE HCL 50 MG TABLET PO SCH (21:08)
[2018-04-11] MEDS: LEVOTHYROXINE SODIUM 0.05 MG TABLET PO SCH (06:06)
[2018-04-11] MEDS: THIORIDAZINE HCL 25 MG TABLET PO SCH ×3 (08:44→21:03)
[2018-04-11] MEDS: HYDROXYZINE PAMOATE 50 MG CAPSULE PO SCH ×2 (08:46→21:06)
[2018-04-11 09:46] LABS: HEMATOCRIT 40.5 % (37.9-51.0); HEMOGLOBIN 13.7 g/dL (13.5-17.0); MEAN CORPUSCULAR HEMOGLOBIN 28.8 pg (27.0-33.4); MEAN CORPUSCULAR HGB CONC 33.9 g/dL (32.0-36.0); MEAN CORPUSCULAR VOLUME 85 fl (80-97); PLATELET COUNT 355 10^3/uL (150-450); RED BLOOD COUNT 4.76 10^6/uL (4.35-5.55); RED CELL DISTRIBUTION WIDTH 15.8 % (11.5-14.0); WHITE BLOOD COUNT 6.5 10^3/uL (4.0-10.5)
[2018-04-11 10:25] LABS: BLOOD UREA NITROGEN 9 mg/dL (7-20); CALCIUM 10.6 mg/dL (8.4-10.2); GLUCOSE 87 mg/dL (75-110); POTASSIUM 4.3 mmol/L (3.6-5.0)
[2018-04-11 10:26] LABS: ANION GAP 15 (5-19); CARBON DIOXIDE 28 mmol/L (22-30); CHLORIDE 97 mmol/L (98-107); SODIUM 140.1 mmol/L (137-145)
[2018-04-11] MEDS: ENOXAPARIN SODIUM INJ 40 MG/0.4 ML DISP.SYRIN SUBCUT SCH (10:51)
[2018-04-11] MEDS: VALPROATE SODIUM SYRUP 250 MG/5 ML UDCUP PO SCH ×2 (10:52→21:02)
[2018-04-11] MEDS: OXCARBAZEPINE 300 MG/5 ML SUSP 250ML/BOTTLE PO SCH ×2 (10:53→21:09)
[2018-04-11] MEDS: PSYLLIUM SEED-SF 5.85 GM PACKET PO SCH ×4 (11:02→21:02)
[2018-04-11] MEDS: LORAZEPAM INJ 2 MG/1 ML VIAL IV PRN (13:55)
--- NOTE | 2018-04-11 19:23 | PDOC PROGRESS REPORT ---
Subjective Progress Note for:: 04/11/18 Subjective:: No new complaints awaiting placement Reason For Visit: HYPOTHERMIA,HYPOTENSION Physical Exam Vital Signs: Temp Pulse Resp BP Pulse Ox 98.6 F 84 18 92/46 L 97 04/11/18 15:38 04/11/18 15:38 04/11/18 15:38 04/11/18 15:38 04/11/18 15:38 Intake & Output 04/10/18 04/11/18 04/12/18 06:59 06:59 06:59 Intake Total 1305 1560 460 Balance 1305 1560 460 Weight 85.9 kg 77.1 kg General appearance: PRESENT: no acute distress Eye exam: PRESENT: PERRLA Respiratory exam: PRESENT: clear to auscultation delores Cardiovascular exam: PRESENT: +S1, +S2 Neurological exam: PRESENT: alert Results Laboratory Results: 04/11/18 09:30 04/11/18 09:30 04/11/18 04/11/18 09:30 09:30 WBC 6.5 RBC 4.76 Hgb 13.7 Hct 40.5 MCV 85 MCH 28.8 MCHC 33.9 RDW 15.8 H Plt Count 355 Sodium 140.1 Potassium 4.3 Chloride 97 L Carbon Dioxide 28 Anion Gap 15 BUN 9 Creatinine 0.61 Est GFR ( Amer) > 60 Est GFR (Non-Af Amer) > 60 Glucose 87 Calcium 10.6 H 03/24/18 03/24/18 03/25/18 18:45 18:45 00:45 Creatine Kinase 670 H 414 H CK-MB (CK-2) 10.50 H Troponin I < 0.012 03/25/18 03/25/18 03/25/18 00:45 06:50 06:50 Creatine Kinase 318 H CK-MB (CK-2) 6.56 H 5.19 H Troponin I < 0.012 < 0.012 Impressions: Head CT 03/24/18 15:10 IMPRESSION: No acute intracranial changes. No skull fracture. Scalp hematomas. EVIDENCE OF ACUTE STROKE: NO. Chest X-Ray 03/24/18 15:59 IMPRESSION: 1 Low lung volumes. NO ACUTE RADIOGRAPHIC FINDING IN THE CHEST. Assessment & Plan - Diagnosis (1) Hypotension Qualifiers: Hypotension type: unspecified hypotension type Qualified Code(s): I95.9 - Hypotension, unspecified Is this a current diagnosis for this admission?: Yes (2) Hypothermia Qualifiers: Encounter type: subsequent encounter Qualified Code(s): T68.XXXD - Hypothermia, subsequent encounter Is this a current diagnosis for this admission?: Yes (3) Subclinical hypothyroidism Is this a current diagnosis for this admission?: Yes (4) Metabolic encephalopathy Is this a current diagnosis for this admission?: Yes (5) Hyperbilirubinemia Is this a current diagnosis for this admission?: Yes
[2018-04-11] MEDS: TRAZODONE HCL 50 MG TABLET PO SCH (21:05)
[2018-04-12] MEDS: LEVOTHYROXINE SODIUM 0.05 MG TABLET PO SCH (05:08)
[2018-04-12] MEDS: ENOXAPARIN SODIUM INJ 40 MG/0.4 ML DISP.SYRIN SUBCUT SCH (09:16)
[2018-04-12] MEDS: VALPROATE SODIUM SYRUP 250 MG/5 ML UDCUP PO SCH ×2 (09:16→21:44)
[2018-04-12] MEDS: PSYLLIUM SEED-SF 5.85 GM PACKET PO SCH ×4 (09:17→21:54)
[2018-04-12] MEDS: HYDROXYZINE PAMOATE 50 MG CAPSULE PO SCH ×2 (09:18→19:39)
[2018-04-12] MEDS: OXCARBAZEPINE 300 MG/5 ML SUSP 250ML/BOTTLE PO SCH ×2 (09:19→21:46)
[2018-04-12] MEDS: THIORIDAZINE HCL 25 MG TABLET PO SCH ×2 (09:19→14:40)
[2018-04-12] MEDS: THIORIDAZINE HCL PO SCH (19:38)
[2018-04-12] MEDS: TRAZODONE HCL 50 MG TABLET PO SCH (21:44)
--- NOTE | 2018-04-12 21:45 | PDOC PROGRESS REPORT ---
Subjective Progress Note for:: 04/12/18 Subjective:: Patient is awaiting disposition discharge planning is working with placement Reason For Visit: HYPOTHERMIA,HYPOTENSION Physical Exam Vital Signs: Temp Pulse Resp BP Pulse Ox 98.9 F 99 20 144/96 H 98 04/12/18 12:00 04/12/18 12:00 04/12/18 12:00 04/12/18 14:59 04/12/18 12:00 Intake & Output 04/11/18 04/12/18 04/13/18 06:59 06:59 06:59 Intake Total 1560 660 260 Output Total 1 Balance 1560 659 260 Weight 77.1 kg 75.8 kg General appearance: PRESENT: no acute distress Eye exam: PRESENT: PERRLA Respiratory exam: PRESENT: clear to auscultation delores Cardiovascular exam: PRESENT: +S1, +S2 GI/Abdominal exam: PRESENT: soft Neurological exam: PRESENT: alert Results Laboratory Results: 04/11/18 09:30 04/11/18 09:30 03/24/18 03/24/18 03/25/18 18:45 18:45 00:45 Creatine Kinase 670 H 414 H CK-MB (CK-2) 10.50 H Troponin I < 0.012 03/25/18 03/25/18 03/25/18 00:45 06:50 06:50 Creatine Kinase 318 H CK-MB (CK-2) 6.56 H 5.19 H Troponin I < 0.012 < 0.012 Impressions: Head CT 03/24/18 15:10 IMPRESSION: No acute intracranial changes. No skull fracture. Scalp hematomas. EVIDENCE OF ACUTE STROKE: NO. Chest X-Ray 03/24/18 15:59 IMPRESSION: 1 Low lung volumes. NO ACUTE RADIOGRAPHIC FINDING IN THE CHEST. Assessment & Plan - Diagnosis (1) Hypotension Qualifiers: Hypotension type: unspecified hypotension type Qualified Code(s): I95.9 - Hypotension, unspecified Is this a current diagnosis for this admission?: Yes (2) Hypothermia Qualifiers: Encounter type: subsequent encounter Qualified Code(s): T68.XXXD - Hypothermia, subsequent encounter Is this a current diagnosis for this admission?: Yes (3) Subclinical hypothyroidism Is this a current diagnosis for this admission?: Yes (4) Metabolic encephalopathy Is this a current diagnosis for this admission?: Yes (5) Hyperbilirubinemia Is this a current diagnosis for this admission?: Yes
[2018-04-13] MEDS: LORAZEPAM INJ 2 MG/1 ML VIAL IV PRN (02:44)
[2018-04-13] MEDS: LEVOTHYROXINE SODIUM 0.05 MG TABLET PO SCH (05:10)
[2018-04-13] MEDS: THIORIDAZINE HCL PO SCH ×3 (10:45→21:37)
[2018-04-13] MEDS: ENOXAPARIN SODIUM INJ 40 MG/0.4 ML DISP.SYRIN SUBCUT SCH (10:45)
[2018-04-13] MEDS: VALPROATE SODIUM SYRUP 250 MG/5 ML UDCUP PO SCH ×2 (10:45→21:36)
[2018-04-13] MEDS: HYDROXYZINE PAMOATE 50 MG CAPSULE PO SCH ×2 (10:45→21:36)
[2018-04-13] MEDS: OXCARBAZEPINE 300 MG/5 ML SUSP 250ML/BOTTLE PO SCH ×2 (10:46→21:37)
[2018-04-13] MEDS: PSYLLIUM SEED-SF 5.85 GM PACKET PO SCH ×4 (10:46→21:36)
--- NOTE | 2018-04-13 15:02 | PDOC PROGRESS REPORT ---
Subjective Progress Note for:: 04/13/18 Subjective:: No new complaints awaiting placement Reason For Visit: HYPOTHERMIA,HYPOTENSION Physical Exam Vital Signs: Temp Pulse Resp BP Pulse Ox 98.0 F 77 21 H 122/82 96 04/13/18 00:28 04/13/18 00:28 04/13/18 00:28 04/13/18 00:28 04/13/18 00:28 Intake & Output 04/12/18 04/13/18 04/14/18 06:59 06:59 06:59 Intake Total 660 260 Output Total 1 Balance 659 260 Weight 75.8 kg 75.8 kg General appearance: PRESENT: no acute distress Eye exam: PRESENT: PERRLA Respiratory exam: PRESENT: clear to auscultation delores Cardiovascular exam: PRESENT: +S1, +S2 GI/Abdominal exam: PRESENT: soft Neurological exam: PRESENT: alert Results Laboratory Results: 04/11/18 09:30 04/11/18 09:30 03/24/18 03/24/18 03/25/18 18:45 18:45 00:45 Creatine Kinase 670 H 414 H CK-MB (CK-2) 10.50 H Troponin I < 0.012 03/25/18 03/25/18 03/25/18 00:45 06:50 06:50 Creatine Kinase 318 H CK-MB (CK-2) 6.56 H 5.19 H Troponin I < 0.012 < 0.012 Impressions: Head CT 03/24/18 15:10 IMPRESSION: No acute intracranial changes. No skull fracture. Scalp hematomas. EVIDENCE OF ACUTE STROKE: NO. Chest X-Ray 03/24/18 15:59 IMPRESSION: 1 Low lung volumes. NO ACUTE RADIOGRAPHIC FINDING IN THE CHEST. Assessment & Plan - Diagnosis (1) Hypotension Qualifiers: Hypotension type: unspecified hypotension type Qualified Code(s): I95.9 - Hypotension, unspecified Is this a current diagnosis for this admission?: Yes (2) Hypothermia Qualifiers: Encounter type: subsequent encounter Qualified Code(s): T68.XXXD - Hypothermia, subsequent encounter Is this a current diagnosis for this admission?: Yes (3) Subclinical hypothyroidism Is this a current diagnosis for this admission?: Yes (4) Metabolic encephalopathy Is this a current diagnosis for this admission?: Yes (5) Hyperbilirubinemia Is this a current diagnosis for this admission?: Yes
[2018-04-13] MEDS: TRAZODONE HCL 50 MG TABLET PO SCH (21:36)
[2018-04-14] MEDS: LORAZEPAM INJ 2 MG/1 ML VIAL IV PRN ×2 (02:51→11:06)
[2018-04-14] MEDS: LEVOTHYROXINE SODIUM 0.05 MG TABLET PO SCH (06:18)
[2018-04-14] MEDS: THIORIDAZINE HCL PO SCH ×3 (10:18→21:34)
[2018-04-14] MEDS: VALPROATE SODIUM SYRUP 250 MG/5 ML UDCUP PO SCH ×2 (10:20→21:34)
[2018-04-14] MEDS: PSYLLIUM SEED-SF 5.85 GM PACKET PO SCH ×4 (10:21→21:35)
[2018-04-14] MEDS: ENOXAPARIN SODIUM INJ 40 MG/0.4 ML DISP.SYRIN SUBCUT SCH (10:25)
[2018-04-14] MEDS: HYDROXYZINE PAMOATE 50 MG CAPSULE PO SCH ×2 (10:27→21:34)
[2018-04-14] MEDS: OXCARBAZEPINE 300 MG/5 ML SUSP 250ML/BOTTLE PO SCH ×2 (10:30→21:34)
--- NOTE | 2018-04-14 21:12 | PDOC PROGRESS REPORT ---
Subjective Progress Note for:: 04/14/18 Subjective:: No new complaints awaiting placement Reason For Visit: HYPOTHERMIA,HYPOTENSION Physical Exam Vital Signs: Temp Pulse Resp BP Pulse Ox 98.5 F 69 16 110/69 100 04/14/18 15:45 04/14/18 15:45 04/14/18 15:45 04/14/18 15:45 04/14/18 15:45 Intake & Output 04/13/18 04/14/18 04/15/18 06:59 06:59 06:59 Intake Total 376 030 5330 Balance 630 817 3931 Weight 75.8 kg 76.7 kg General appearance: PRESENT: no acute distress Eye exam: PRESENT: PERRLA Respiratory exam: PRESENT: clear to auscultation delores Cardiovascular exam: PRESENT: +S1, +S2 GI/Abdominal exam: PRESENT: soft Neurological exam: PRESENT: alert Results Laboratory Results: 04/11/18 09:30 04/11/18 09:30 03/24/18 03/24/18 03/25/18 18:45 18:45 00:45 Creatine Kinase 670 H 414 H CK-MB (CK-2) 10.50 H Troponin I < 0.012 03/25/18 03/25/18 03/25/18 00:45 06:50 06:50 Creatine Kinase 318 H CK-MB (CK-2) 6.56 H 5.19 H Troponin I < 0.012 < 0.012 Impressions: Head CT 03/24/18 15:10 IMPRESSION: No acute intracranial changes. No skull fracture. Scalp hematomas. EVIDENCE OF ACUTE STROKE: NO. Chest X-Ray 03/24/18 15:59 IMPRESSION: 1 Low lung volumes. NO ACUTE RADIOGRAPHIC FINDING IN THE CHEST. Assessment & Plan - Diagnosis (1) Hypotension Qualifiers: Hypotension type: unspecified hypotension type Qualified Code(s): I95.9 - Hypotension, unspecified Is this a current diagnosis for this admission?: Yes (2) Hypothermia Qualifiers: Encounter type: subsequent encounter Qualified Code(s): T68.XXXD - Hypothermia, subsequent encounter Is this a current diagnosis for this admission?: Yes (3) Subclinical hypothyroidism Is this a current diagnosis for this admission?: Yes (4) Metabolic encephalopathy Is this a current diagnosis for this admission?: Yes (5) Hyperbilirubinemia Is this a current diagnosis for this admission?: Yes
[2018-04-14] MEDS: TRAZODONE HCL 50 MG TABLET PO SCH (21:34)
[2018-04-15] MEDS: LEVOTHYROXINE SODIUM 0.05 MG TABLET PO SCH (05:10)
[2018-04-15] MEDS: HYDROXYZINE PAMOATE 50 MG CAPSULE PO SCH ×2 (08:25→23:16)
[2018-04-15] MEDS: THIORIDAZINE HCL PO SCH ×3 (08:26→23:16)
[2018-04-15] MEDS: LORAZEPAM 1 MG TABLET PO PRN (08:26)
[2018-04-15] MEDS ORDERED: LORAZEPAM 1 MG TABLET ONE (08:40)
[2018-04-15] MEDS: VALPROATE SODIUM SYRUP 250 MG/5 ML UDCUP PO SCH ×2 (10:27→23:16)
[2018-04-15] MEDS: ENOXAPARIN SODIUM INJ 40 MG/0.4 ML DISP.SYRIN SUBCUT SCH (10:33)
[2018-04-15] MEDS: PSYLLIUM SEED-SF 5.85 GM PACKET PO SCH ×4 (10:36→23:18)
[2018-04-15] MEDS ORDERED: OXCARBAZEPINE 300 MG/5 ML SUSP 250ML/BOTTLE PO ONE (11:00)
--- NOTE | 2018-04-15 21:29 | PDOC PROGRESS REPORT ---
Subjective Progress Note for:: 04/15/18 Subjective:: No new complaints awaiting placement Reason For Visit: HYPOTHERMIA,HYPOTENSION Physical Exam Vital Signs: Temp Pulse Resp BP Pulse Ox 98.5 F 62 16 109/62 100 04/15/18 16:00 04/15/18 16:00 04/15/18 16:00 04/15/18 16:00 04/15/18 16:00 Intake & Output 04/14/18 04/15/18 04/16/18 06:59 06:59 06:59 Intake Total 666 2361 770 Balance 666 2361 770 Weight 76.7 kg 76.7 kg General appearance: PRESENT: no acute distress Eye exam: PRESENT: PERRLA Respiratory exam: PRESENT: clear to auscultation delores Cardiovascular exam: PRESENT: +S1, +S2 GI/Abdominal exam: PRESENT: soft Neurological exam: PRESENT: alert Results Laboratory Results: 04/11/18 09:30 04/11/18 09:30 03/24/18 03/24/18 03/25/18 18:45 18:45 00:45 Creatine Kinase 670 H 414 H CK-MB (CK-2) 10.50 H Troponin I < 0.012 03/25/18 03/25/18 03/25/18 00:45 06:50 06:50 Creatine Kinase 318 H CK-MB (CK-2) 6.56 H 5.19 H Troponin I < 0.012 < 0.012 Impressions: Head CT 03/24/18 15:10 IMPRESSION: No acute intracranial changes. No skull fracture. Scalp hematomas. EVIDENCE OF ACUTE STROKE: NO. Chest X-Ray 03/24/18 15:59 IMPRESSION: 1 Low lung volumes. NO ACUTE RADIOGRAPHIC FINDING IN THE CHEST. Assessment & Plan - Diagnosis (1) Hypotension Qualifiers: Hypotension type: unspecified hypotension type Qualified Code(s): I95.9 - Hypotension, unspecified Is this a current diagnosis for this admission?: Yes (2) Hypothermia Qualifiers: Encounter type: subsequent encounter Qualified Code(s): T68.XXXD - Hypothermia, subsequent encounter Is this a current diagnosis for this admission?: Yes (3) Subclinical hypothyroidism Is this a current diagnosis for this admission?: Yes (4) Metabolic encephalopathy Is this a current diagnosis for this admission?: Yes (5) Hyperbilirubinemia Is this a current diagnosis for this admission?: Yes
[2018-04-15] MEDS: OXCARBAZEPINE 300 MG/5 ML SUSP 250ML/BOTTLE PO SCH (23:15)
[2018-04-15] MEDS: TRAZODONE HCL 50 MG TABLET PO SCH (23:16)
[2018-04-16] MEDS: LORAZEPAM 1 MG TABLET PO PRN ×3 (05:18→13:37)
[2018-04-16] MEDS: LEVOTHYROXINE SODIUM 0.05 MG TABLET PO SCH (05:18)
[2018-04-16] MEDS: THIORIDAZINE HCL PO SCH ×3 (08:17→23:39)
[2018-04-16] MEDS: HYDROXYZINE PAMOATE 50 MG CAPSULE PO SCH ×2 (08:19→23:39)
[2018-04-16] MEDS: VALPROATE SODIUM SYRUP 250 MG/5 ML UDCUP PO SCH ×2 (10:57→23:40)
[2018-04-16] MEDS: OXCARBAZEPINE 300 MG/5 ML SUSP 250ML/BOTTLE PO SCH ×2 (10:59→23:41)
[2018-04-16] MEDS: ENOXAPARIN SODIUM INJ 40 MG/0.4 ML DISP.SYRIN SUBCUT SCH (11:00)
[2018-04-16] MEDS: PSYLLIUM SEED-SF 5.85 GM PACKET PO SCH ×4 (11:03→23:40)
--- NOTE | 2018-04-16 12:25 | PDOC PROGRESS REPORT ---
Subjective Progress Note for:: 04/16/18 Subjective:: Mentally challenged due communication limitation from autism. Nursing staff reported intermittent episode of agitation movement otherwise cooperative with care. No reported fever or chills. No observed difficulty with breathing. Currently with mittens restraints in use. Reason For Visit: HYPOTHERMIA,HYPOTENSION Physical Exam Vital Signs: Temp Pulse Resp BP Pulse Ox 98.7 F 69 20 110/54 L 98 04/16/18 08:00 04/16/18 08:00 04/16/18 08:00 04/16/18 08:00 04/16/18 08:00 Intake & Output 04/15/18 04/16/18 04/17/18 06:59 06:59 06:59 Intake Total 2361 890 Balance 2361 890 Weight 76.7 kg 76.7 kg General appearance: PRESENT: no acute distress Head exam: PRESENT: atraumatic, normocephalic Mouth exam: PRESENT: moist Respiratory exam: PRESENT: clear to auscultation delores Cardiovascular exam: PRESENT: RRR. ABSENT: diastolic murmur, rubs, systolic murmur Vascular exam: ABSENT: pallor GI/Abdominal exam: PRESENT: normal bowel sounds, soft. ABSENT: organolmegaly, tenderness Extremities exam: ABSENT: pedal edema Musculoskeletal exam: PRESENT: normal inspection Neurological exam: PRESENT: alert, other - not verbally communicative and not following instruction Skin exam: PRESENT: dry, warm Results Laboratory Results: 04/11/18 09:30 04/11/18 09:30 03/24/18 03/24/18 03/25/18 18:45 18:45 00:45 Creatine Kinase 670 H 414 H CK-MB (CK-2) 10.50 H Troponin I < 0.012 03/25/18 03/25/18 03/25/18 00:45 06:50 06:50 Creatine Kinase 318 H CK-MB (CK-2) 6.56 H 5.19 H Troponin I < 0.012 < 0.012 Impressions: Head CT 03/24/18 15:10 IMPRESSION: No acute intracranial changes. No skull fracture. Scalp hematomas. EVIDENCE OF ACUTE STROKE: NO. Chest X-Ray 03/24/18 15:59 IMPRESSION: 1 Low lung volumes. NO ACUTE RADIOGRAPHIC FINDING IN THE CHEST. Assessment & Plan - Diagnosis (1) Hypothermia Qualifiers: Encounter type: initial encounter Qualified Code(s): T68.XXXA - Hypothermia , initial encounter Is this a current diagnosis for this admission?: Yes Plan: See covering attending physician orders. (2) Subclinical hypothyroidism Is this a current diagnosis for this admission?: Yes Plan: See covering attending physician orders. (3) Autism Is this a current diagnosis for this admission?: Yes Plan: See covering attending physician orders. - Time Time Spent with patient: 25-34 minutes Medications reviewed and adjusted accordingly: Yes Anticipated discharge: SNF - awaiting placement Within: Other - Inpatient Certification Based on my medical assessment, after consideration of the patient's comorbidities, presenting symptoms, or acuity I expect that the services needed warrant INPATIENT care.: Yes I certify that my determination is in accordance with my understanding of Medicare's requirements for reasonable and necessary INPATIENT services [42 CFR 412.3e].: Yes Medical Necessity: Need Close Monitoring Due to Risk of Patient Decompensation, Risk of Complication if Not Cared For in Hospital Post Hospital Care: D/C or Transfer Summary - Plan Summary Plan Summary: See covering attending physician orders.
[2018-04-16] MEDS: TRAZODONE HCL 50 MG TABLET PO SCH (23:41)
[2018-04-17] MEDS: LORAZEPAM 1 MG TABLET PO PRN ×4 (02:42→19:33)
[2018-04-17] MEDS: LEVOTHYROXINE SODIUM 0.05 MG TABLET PO SCH (06:09)
[2018-04-17] MEDS: HYDROXYZINE PAMOATE 50 MG CAPSULE PO SCH ×2 (07:55→20:14)
[2018-04-17] MEDS: THIORIDAZINE HCL PO SCH ×3 (07:55→20:14)
--- NOTE | 2018-04-17 12:29 | PDOC PROGRESS REPORT ---
Subjective Progress Note for:: 04/17/18 Subjective:: Mentally challenged due communication limitation from autism. No new issues so far today. No reported fever or chills. No observed difficulty with breathing. Currently with mittens restraints in use. Reason For Visit: HYPOTHERMIA,HYPOTENSION Physical Exam Vital Signs: Temp Pulse Resp BP Pulse Ox 98.5 F 60 15 112/65 98 04/17/18 00:56 04/17/18 00:56 04/17/18 00:56 04/17/18 00:56 04/16/18 16:00 Intake & Output 04/16/18 04/17/18 04/18/18 06:59 06:59 06:59 Intake Total 890 1942 Balance 890 1942 Weight 76.7 kg 78.9 kg Physical Exam: General appearance: PRESENT: no acute distress Head exam: PRESENT: atraumatic, normocephalic Mouth exam: PRESENT: moist Respiratory exam: PRESENT: clear to auscultation delores Cardiovascular exam: PRESENT: RRR. ABSENT: diastolic murmur, rubs, systolic murmur Vascular exam: ABSENT: pallor GI/Abdominal exam: PRESENT: normal bowel sounds, soft. ABSENT: organomegaly, tenderness Extremities exam: ABSENT: pedal edema Musculoskeletal exam: PRESENT: normal inspection Neurological exam: PRESENT: alert, other - not verbally communicative and not following instruction Skin exam: PRESENT: dry, warm Results Laboratory Results: 04/11/18 09:30 04/11/18 09:30 03/24/18 03/24/18 03/25/18 18:45 18:45 00:45 Creatine Kinase 670 H 414 H CK-MB (CK-2) 10.50 H Troponin I < 0.012 03/25/18 03/25/18 03/25/18 00:45 06:50 06:50 Creatine Kinase 318 H CK-MB (CK-2) 6.56 H 5.19 H Troponin I < 0.012 < 0.012 Impressions: Head CT 03/24/18 15:10 IMPRESSION: No acute intracranial changes. No skull fracture. Scalp hematomas. EVIDENCE OF ACUTE STROKE: NO. Chest X-Ray 03/24/18 15:59 IMPRESSION: 1 Low lung volumes. NO ACUTE RADIOGRAPHIC FINDING IN THE CHEST. Assessment & Plan - Diagnosis (1) Hypothermia Qualifiers: Encounter type: initial encounter Qualified Code(s): T68.XXXA - Hypothermia , initial encounter Is this a current diagnosis for this admission?: Yes Plan: See covering attending physician orders. (2) Subclinical hypothyroidism Is this a current diagnosis for this admission?: Yes Plan: See covering attending physician orders. (3) Autism Is this a current diagnosis for this admission?: Yes Plan: See covering attending physician orders. - Time Time Spent with patient: 25-34 minutes Medications reviewed and adjusted accordingly: Yes Anticipated discharge: SNF Within: Other - Inpatient Certification Based on my medical assessment, after consideration of the patient's comorbidities, presenting symptoms, or acuity I expect that the services needed warrant INPATIENT care.: Yes I certify that my determination is in accordance with my understanding of Medicare's requirements for reasonable and necessary INPATIENT services [42 CFR 412.3e].: Yes Medical Necessity: Need Close Monitoring Due to Risk of Patient Decompensation, Risk of Complication if Not Cared For in Hospital Post Hospital Care: D/C or Transfer Summary - Plan Summary Plan Summary: See covering attending physician orders.
[2018-04-17] MEDS: VALPROATE SODIUM SYRUP 250 MG/5 ML UDCUP PO SCH ×2 (13:00→21:04)
[2018-04-17] MEDS: OXCARBAZEPINE 300 MG/5 ML SUSP 250ML/BOTTLE PO SCH ×2 (13:00→21:04)
[2018-04-17] MEDS: ENOXAPARIN SODIUM INJ 40 MG/0.4 ML DISP.SYRIN SUBCUT SCH (13:01)
[2018-04-17] MEDS: PSYLLIUM SEED-SF 5.85 GM PACKET PO SCH ×4 (13:04→21:04)
[2018-04-17] MEDS: TRAZODONE HCL 50 MG TABLET PO SCH (21:04)
[2018-04-18] MEDS: LEVOTHYROXINE SODIUM 0.05 MG TABLET PO SCH (07:01)
[2018-04-18] MEDS: HYDROXYZINE PAMOATE 50 MG CAPSULE PO SCH ×2 (08:02→21:48)
[2018-04-18] MEDS: THIORIDAZINE HCL PO SCH ×3 (08:02→21:50)
[2018-04-18] MEDS: LORAZEPAM 1 MG TABLET PO PRN ×3 (08:02→22:19)
[2018-04-18] MEDS: PSYLLIUM SEED-SF 5.85 GM PACKET PO SCH ×4 (10:00→21:50)
[2018-04-18] MEDS: OXCARBAZEPINE 300 MG/5 ML SUSP 250ML/BOTTLE PO SCH ×2 (14:28→21:51)
[2018-04-18] MEDS: VALPROATE SODIUM SYRUP 250 MG/5 ML UDCUP PO SCH ×2 (14:31→21:48)
[2018-04-18] MEDS: ENOXAPARIN SODIUM INJ 40 MG/0.4 ML DISP.SYRIN SUBCUT SCH (14:49)
--- NOTE | 2018-04-18 20:48 | PDOC PROGRESS REPORT ---
Subjective Progress Note for:: 04/18/18 Subjective:: Patient is awaiting disposition discharge planning is working with placement Reason For Visit: HYPOTHERMIA,HYPOTENSION Physical Exam Vital Signs: Temp Pulse Resp BP Pulse Ox 98.5 F 68 16 135/81 H 100 04/18/18 11:56 04/18/18 11:56 04/18/18 11:56 04/18/18 11:56 04/18/18 11:56 Intake & Output 04/17/18 04/18/18 04/19/18 06:59 06:59 06:59 Intake Total 1941 1040 738 Balance 1941 1040 738 Weight 78.9 kg General appearance: PRESENT: no acute distress Eye exam: PRESENT: PERRLA Respiratory exam: PRESENT: clear to auscultation delores Cardiovascular exam: PRESENT: +S1, +S2 GI/Abdominal exam: PRESENT: soft Neurological exam: PRESENT: alert Results Laboratory Results: 04/11/18 09:30 04/11/18 09:30 03/24/18 03/24/18 03/25/18 18:45 18:45 00:45 Creatine Kinase 670 H 414 H CK-MB (CK-2) 10.50 H Troponin I < 0.012 03/25/18 03/25/18 03/25/18 00:45 06:50 06:50 Creatine Kinase 318 H CK-MB (CK-2) 6.56 H 5.19 H Troponin I < 0.012 < 0.012 Impressions: Head CT 03/24/18 15:10 IMPRESSION: No acute intracranial changes. No skull fracture. Scalp hematomas. EVIDENCE OF ACUTE STROKE: NO. Chest X-Ray 03/24/18 15:59 IMPRESSION: 1 Low lung volumes. NO ACUTE RADIOGRAPHIC FINDING IN THE CHEST. Assessment & Plan - Diagnosis (1) Hypotension Qualifiers: Hypotension type: unspecified hypotension type Qualified Code(s): I95.9 - Hypotension, unspecified Is this a current diagnosis for this admission?: Yes (2) Hypothermia Qualifiers: Encounter type: subsequent encounter Qualified Code(s): T68.XXXD - Hypothermia, subsequent encounter Is this a current diagnosis for this admission?: Yes (3) Subclinical hypothyroidism Is this a current diagnosis for this admission?: Yes (4) Metabolic encephalopathy Is this a current diagnosis for this admission?: Yes (5) Hyperbilirubinemia Is this a current diagnosis for this admission?: Yes
[2018-04-18] MEDS: TRAZODONE HCL 50 MG TABLET PO SCH (21:48)
[2018-04-19] MEDS: LORAZEPAM 1 MG TABLET PO PRN ×2 (06:01→20:27)
[2018-04-19] MEDS: LEVOTHYROXINE SODIUM 0.05 MG TABLET PO SCH (06:01)
[2018-04-19] MEDS: HYDROXYZINE PAMOATE 50 MG CAPSULE PO SCH ×2 (11:36→20:26)
[2018-04-19] MEDS: THIORIDAZINE HCL PO SCH ×3 (11:37→20:26)
[2018-04-19] MEDS: PSYLLIUM SEED-SF 5.85 GM PACKET PO SCH ×4 (11:37→20:26)
[2018-04-19] MEDS: OXCARBAZEPINE 300 MG/5 ML SUSP 250ML/BOTTLE PO SCH ×2 (11:38→23:33)
[2018-04-19] MEDS: ENOXAPARIN SODIUM INJ 40 MG/0.4 ML DISP.SYRIN SUBCUT SCH (11:39)
[2018-04-19] MEDS: VALPROATE SODIUM SYRUP 250 MG/5 ML UDCUP PO SCH ×2 (17:21→20:27)
[2018-04-19] MEDS: TRAZODONE HCL 50 MG TABLET PO SCH (20:27)
--- NOTE | 2018-04-19 20:41 | PDOC PROGRESS REPORT ---
Subjective Progress Note for:: 04/19/18 Subjective:: Patient is awaiting disposition discharge planning is working with placement Reason For Visit: HYPOTHERMIA,HYPOTENSION Physical Exam Vital Signs: Temp Pulse Resp BP Pulse Ox 97.7 F 65 17 109/55 L 99 04/19/18 00:31 04/19/18 15:28 04/19/18 15:28 04/19/18 15:28 04/19/18 15:28 Intake & Output 04/18/18 04/19/18 04/20/18 06:59 06:59 06:59 Intake Total 1040 1182 620 Balance 1040 1182 620 Weight 78.5 kg General appearance: PRESENT: no acute distress Eye exam: PRESENT: PERRLA Respiratory exam: PRESENT: clear to auscultation delores Cardiovascular exam: PRESENT: +S1, +S2 GI/Abdominal exam: PRESENT: soft Results Laboratory Results: 04/11/18 09:30 04/11/18 09:30 03/24/18 03/24/18 03/25/18 18:45 18:45 00:45 Creatine Kinase 670 H 414 H CK-MB (CK-2) 10.50 H Troponin I < 0.012 03/25/18 03/25/18 03/25/18 00:45 06:50 06:50 Creatine Kinase 318 H CK-MB (CK-2) 6.56 H 5.19 H Troponin I < 0.012 < 0.012 Impressions: Head CT 03/24/18 15:10 IMPRESSION: No acute intracranial changes. No skull fracture. Scalp hematomas. EVIDENCE OF ACUTE STROKE: NO. Chest X-Ray 03/24/18 15:59 IMPRESSION: 1 Low lung volumes. NO ACUTE RADIOGRAPHIC FINDING IN THE CHEST. Assessment & Plan - Diagnosis (1) Hypotension Qualifiers: Hypotension type: unspecified hypotension type Qualified Code(s): I95.9 - Hypotension, unspecified Is this a current diagnosis for this admission?: Yes (2) Hypothermia Qualifiers: Encounter type: subsequent encounter Qualified Code(s): T68.XXXD - Hypothermia, subsequent encounter Is this a current diagnosis for this admission?: Yes (3) Subclinical hypothyroidism Is this a current diagnosis for this admission?: Yes (4) Metabolic encephalopathy Is this a current diagnosis for this admission?: Yes (5) Hyperbilirubinemia Is this a current diagnosis for this admission?: Yes
[2018-04-19] MEDS ORDERED: OXCARBAZEPINE 300 MG/5 ML SUSP 250ML/BOTTLE ONE (23:23)
[2018-04-20] MEDS: LEVOTHYROXINE SODIUM 0.05 MG TABLET PO SCH (05:35)
[2018-04-20] MEDS: LORAZEPAM 1 MG TABLET PO PRN ×2 (05:35→22:40)
[2018-04-20] MEDS: HYDROXYZINE PAMOATE 50 MG CAPSULE PO SCH ×2 (08:46→20:28)
[2018-04-20] MEDS: THIORIDAZINE HCL PO SCH ×3 (08:47→20:28)
[2018-04-20] MEDS: OXCARBAZEPINE 300 MG/5 ML SUSP 250ML/BOTTLE PO SCH ×2 (10:05→22:40)
[2018-04-20] MEDS: VALPROATE SODIUM SYRUP 250 MG/5 ML UDCUP PO SCH ×2 (10:05→22:40)
[2018-04-20] MEDS: PSYLLIUM SEED-SF 5.85 GM PACKET PO SCH ×4 (10:07→22:40)
[2018-04-20] MEDS: ENOXAPARIN SODIUM INJ 40 MG/0.4 ML DISP.SYRIN SUBCUT SCH (10:08)
--- NOTE | 2018-04-20 18:36 | PDOC PROGRESS REPORT ---
Subjective Progress Note for:: 04/20/18 Subjective:: Patient was seen by the bedside, still awaiting placement Reason For Visit: HYPOTHERMIA,HYPOTENSION Physical Exam Vital Signs: Temp Pulse Resp BP Pulse Ox 98.3 F 130 H 21 H 106/89 H 95 04/20/18 16:00 04/20/18 16:00 04/20/18 16:00 04/20/18 16:00 04/20/18 16:00 Intake & Output 04/19/18 04/20/18 04/21/18 06:59 06:59 06:59 Intake Total 1182 620 659 Balance 1182 620 659 Weight 78.5 kg General appearance: PRESENT: no acute distress Eye exam: PRESENT: PERRLA Respiratory exam: PRESENT: clear to auscultation delores Cardiovascular exam: PRESENT: +S1, +S2 Murmur grade: 3 GI/Abdominal exam: PRESENT: soft Neurological exam: PRESENT: alert Results Laboratory Results: 04/11/18 09:30 04/11/18 09:30 03/24/18 03/24/18 03/25/18 18:45 18:45 00:45 Creatine Kinase 670 H 414 H CK-MB (CK-2) 10.50 H Troponin I < 0.012 03/25/18 03/25/18 03/25/18 00:45 06:50 06:50 Creatine Kinase 318 H CK-MB (CK-2) 6.56 H 5.19 H Troponin I < 0.012 < 0.012 Impressions: Head CT 03/24/18 15:10 IMPRESSION: No acute intracranial changes. No skull fracture. Scalp hematomas. EVIDENCE OF ACUTE STROKE: NO. Chest X-Ray 03/24/18 15:59 IMPRESSION: 1 Low lung volumes. NO ACUTE RADIOGRAPHIC FINDING IN THE CHEST. Assessment & Plan - Diagnosis (1) Hypotension Qualifiers: Hypotension type: unspecified hypotension type Qualified Code(s): I95.9 - Hypotension, unspecified Is this a current diagnosis for this admission?: Yes (2) Hypothermia Qualifiers: Encounter type: subsequent encounter Qualified Code(s): T68.XXXD - Hypothermia, subsequent encounter Is this a current diagnosis for this admission?: Yes (3) Subclinical hypothyroidism Is this a current diagnosis for this admission?: Yes (4) Metabolic encephalopathy Is this a current diagnosis for this admission?: Yes (5) Hyperbilirubinemia Is this a current diagnosis for this admission?: Yes
[2018-04-20] MEDS: TRAZODONE HCL 50 MG TABLET PO SCH (22:40)
[2018-04-21] MEDS: LEVOTHYROXINE SODIUM 0.05 MG TABLET PO SCH (06:33)
[2018-04-21] MEDS: THIORIDAZINE HCL PO SCH ×3 (10:17→19:46)
[2018-04-21] MEDS: HYDROXYZINE PAMOATE 50 MG CAPSULE PO SCH ×2 (10:18→19:46)
[2018-04-21] MEDS: VALPROATE SODIUM SYRUP 250 MG/5 ML UDCUP PO SCH ×2 (10:18→21:56)
[2018-04-21] MEDS: PSYLLIUM SEED-SF 5.85 GM PACKET PO SCH ×4 (10:18→21:56)
[2018-04-21] MEDS: OXCARBAZEPINE 300 MG/5 ML SUSP 250ML/BOTTLE PO SCH ×2 (10:18→21:55)
[2018-04-21] MEDS: ENOXAPARIN SODIUM INJ 40 MG/0.4 ML DISP.SYRIN SUBCUT SCH (10:20)
--- NOTE | 2018-04-21 20:36 | PDOC PROGRESS REPORT ---
Subjective Progress Note for:: 04/21/18 Subjective:: Patient was seen by the bedside, still awaiting placement Reason For Visit: HYPOTHERMIA,HYPOTENSION Physical Exam Vital Signs: Temp Pulse Resp BP Pulse Ox 98.2 F 72 14 127/67 H 96 04/21/18 16:00 04/21/18 16:00 04/21/18 16:00 04/21/18 16:00 04/21/18 16:00 Intake & Output 04/20/18 04/21/18 04/22/18 06:59 06:59 06:59 Intake Total 620 1681 1170 Balance 620 1681 1170 Weight 79.5 kg General appearance: PRESENT: no acute distress Eye exam: PRESENT: PERRLA Respiratory exam: PRESENT: clear to auscultation delores Cardiovascular exam: PRESENT: +S1, +S2 GI/Abdominal exam: PRESENT: soft Results Laboratory Results: 04/11/18 09:30 04/11/18 09:30 03/24/18 03/24/18 03/25/18 18:45 18:45 00:45 Creatine Kinase 670 H 414 H CK-MB (CK-2) 10.50 H Troponin I < 0.012 03/25/18 03/25/18 03/25/18 00:45 06:50 06:50 Creatine Kinase 318 H CK-MB (CK-2) 6.56 H 5.19 H Troponin I < 0.012 < 0.012 Impressions: Head CT 03/24/18 15:10 IMPRESSION: No acute intracranial changes. No skull fracture. Scalp hematomas. EVIDENCE OF ACUTE STROKE: NO. Chest X-Ray 03/24/18 15:59 IMPRESSION: 1 Low lung volumes. NO ACUTE RADIOGRAPHIC FINDING IN THE CHEST. Assessment & Plan - Diagnosis (1) Hypotension Qualifiers: Hypotension type: unspecified hypotension type Qualified Code(s): I95.9 - Hypotension, unspecified Is this a current diagnosis for this admission?: Yes (2) Hypothermia Qualifiers: Encounter type: subsequent encounter Qualified Code(s): T68.XXXD - Hypothermia, subsequent encounter Is this a current diagnosis for this admission?: Yes (3) Subclinical hypothyroidism Is this a current diagnosis for this admission?: Yes (4) Metabolic encephalopathy Is this a current diagnosis for this admission?: Yes (5) Hyperbilirubinemia Is this a current diagnosis for this admission?: Yes
[2018-04-21] MEDS: LORAZEPAM 1 MG TABLET PO PRN (21:56)
[2018-04-21] MEDS: TRAZODONE HCL 50 MG TABLET PO SCH (21:56)
[2018-04-22] MEDS: LEVOTHYROXINE SODIUM 0.05 MG TABLET PO SCH (06:21)
[2018-04-22] MEDS: THIORIDAZINE HCL PO SCH ×3 (09:44→20:08)
[2018-04-22] MEDS: HYDROXYZINE PAMOATE 50 MG CAPSULE PO SCH ×2 (09:46→20:08)
[2018-04-22] MEDS: PSYLLIUM SEED-SF 5.85 GM PACKET PO SCH ×4 (09:46→22:41)
[2018-04-22] MEDS: VALPROATE SODIUM SYRUP 250 MG/5 ML UDCUP PO SCH ×2 (09:47→22:40)
[2018-04-22] MEDS: ENOXAPARIN SODIUM INJ 40 MG/0.4 ML DISP.SYRIN SUBCUT SCH (09:47)
[2018-04-22] MEDS: OXCARBAZEPINE 300 MG/5 ML SUSP 250ML/BOTTLE PO SCH ×2 (09:47→22:40)
--- NOTE | 2018-04-22 21:14 | PDOC PROGRESS REPORT ---
Subjective Progress Note for:: 04/22/18 Subjective:: Patient is awaiting disposition discharge planning is working with placement Reason For Visit: HYPOTHERMIA,HYPOTENSION Physical Exam Vital Signs: Temp Pulse Resp BP Pulse Ox 97.8 F 85 17 125/77 96 04/22/18 19:31 04/22/18 19:31 04/22/18 19:31 04/22/18 19:31 04/22/18 19:31 Intake & Output 04/21/18 04/22/18 04/23/18 06:59 06:59 06:59 Intake Total 1681 1350 900 Balance 1681 1350 900 Weight 79.5 kg 78 kg General appearance: PRESENT: no acute distress Eye exam: PRESENT: PERRLA Respiratory exam: PRESENT: clear to auscultation delores Cardiovascular exam: PRESENT: +S1, +S2 Neurological exam: PRESENT: alert Results Laboratory Results: 04/11/18 09:30 04/11/18 09:30 03/24/18 03/24/18 03/25/18 18:45 18:45 00:45 Creatine Kinase 670 H 414 H CK-MB (CK-2) 10.50 H Troponin I < 0.012 03/25/18 03/25/18 03/25/18 00:45 06:50 06:50 Creatine Kinase 318 H CK-MB (CK-2) 6.56 H 5.19 H Troponin I < 0.012 < 0.012 Impressions: Head CT 03/24/18 15:10 IMPRESSION: No acute intracranial changes. No skull fracture. Scalp hematomas. EVIDENCE OF ACUTE STROKE: NO. Chest X-Ray 03/24/18 15:59 IMPRESSION: 1 Low lung volumes. NO ACUTE RADIOGRAPHIC FINDING IN THE CHEST. Assessment & Plan - Diagnosis (1) Hypotension Qualifiers: Hypotension type: unspecified hypotension type Qualified Code(s): I95.9 - Hypotension, unspecified Is this a current diagnosis for this admission?: Yes (2) Hypothermia Qualifiers: Encounter type: subsequent encounter Qualified Code(s): T68.XXXD - Hypothermia, subsequent encounter Is this a current diagnosis for this admission?: Yes (3) Subclinical hypothyroidism Is this a current diagnosis for this admission?: Yes (4) Metabolic encephalopathy Is this a current diagnosis for this admission?: Yes (5) Hyperbilirubinemia Is this a current diagnosis for this admission?: Yes
[2018-04-22] MEDS: TRAZODONE HCL 50 MG TABLET PO SCH (22:40)
[2018-04-23] MEDS: LEVOTHYROXINE SODIUM 0.05 MG TABLET PO SCH (06:17)
[2018-04-23] MEDS: HYDROXYZINE PAMOATE 50 MG CAPSULE PO SCH ×2 (07:36→21:29)
[2018-04-23] MEDS: THIORIDAZINE HCL PO SCH ×3 (07:36→21:29)
[2018-04-23] MEDS: OXCARBAZEPINE 300 MG/5 ML SUSP 250ML/BOTTLE PO SCH ×2 (10:19→21:29)
[2018-04-23] MEDS: PSYLLIUM SEED-SF 5.85 GM PACKET PO SCH ×4 (10:19→21:30)
[2018-04-23] MEDS: VALPROATE SODIUM SYRUP 250 MG/5 ML UDCUP PO SCH ×2 (10:19→21:29)
[2018-04-23] MEDS: ENOXAPARIN SODIUM INJ 40 MG/0.4 ML DISP.SYRIN SUBCUT SCH (10:28)
--- NOTE | 2018-04-23 16:31 | PDOC PROGRESS REPORT ---
Subjective Progress Note for:: 04/23/18 Subjective:: Patient was seen by the bedside, still awaiting placement Reason For Visit: HYPOTHERMIA,HYPOTENSION Physical Exam Vital Signs: Temp Pulse Resp BP Pulse Ox 98.7 F 100 16 121/65 98 04/23/18 15:11 04/23/18 15:11 04/23/18 15:11 04/23/18 15:11 04/23/18 15:11 Intake & Output 04/22/18 04/23/18 04/24/18 06:59 06:59 06:59 Intake Total 1350 1581 Balance 1350 1581 Weight 78 kg 81.5 kg General appearance: PRESENT: no acute distress Eye exam: PRESENT: PERRLA Cardiovascular exam: PRESENT: +S1, +S2 GI/Abdominal exam: PRESENT: soft Neurological exam: PRESENT: alert Results Laboratory Results: 04/11/18 09:30 04/11/18 09:30 03/24/18 03/24/18 03/25/18 18:45 18:45 00:45 Creatine Kinase 670 H 414 H CK-MB (CK-2) 10.50 H Troponin I < 0.012 03/25/18 03/25/18 03/25/18 00:45 06:50 06:50 Creatine Kinase 318 H CK-MB (CK-2) 6.56 H 5.19 H Troponin I < 0.012 < 0.012 Impressions: Head CT 03/24/18 15:10 IMPRESSION: No acute intracranial changes. No skull fracture. Scalp hematomas. EVIDENCE OF ACUTE STROKE: NO. Chest X-Ray 03/24/18 15:59 IMPRESSION: 1 Low lung volumes. NO ACUTE RADIOGRAPHIC FINDING IN THE CHEST. Assessment & Plan - Diagnosis (1) Hypotension Qualifiers: Hypotension type: unspecified hypotension type Qualified Code(s): I95.9 - Hypotension, unspecified Is this a current diagnosis for this admission?: Yes (2) Hypothermia Qualifiers: Encounter type: subsequent encounter Qualified Code(s): T68.XXXD - Hypothermia, subsequent encounter Is this a current diagnosis for this admission?: Yes (3) Subclinical hypothyroidism Is this a current diagnosis for this admission?: Yes (4) Metabolic encephalopathy Is this a current diagnosis for this admission?: Yes (5) Hyperbilirubinemia Is this a current diagnosis for this admission?: Yes
[2018-04-23] MEDS: TRAZODONE HCL 50 MG TABLET PO SCH (21:29)
[2018-04-24] MEDS: LEVOTHYROXINE SODIUM 0.05 MG TABLET PO SCH (05:46)
[2018-04-24] MEDS: THIORIDAZINE HCL PO SCH ×3 (09:40→23:00)
[2018-04-24] MEDS: HYDROXYZINE PAMOATE 50 MG CAPSULE PO SCH ×2 (09:40→23:00)
[2018-04-24] MEDS: PSYLLIUM SEED-SF 5.85 GM PACKET PO SCH ×4 (09:40→23:01)
[2018-04-24] MEDS: OXCARBAZEPINE 300 MG/5 ML SUSP 250ML/BOTTLE PO SCH ×2 (09:41→23:00)
[2018-04-24] MEDS: VALPROATE SODIUM SYRUP 250 MG/5 ML UDCUP PO SCH ×2 (09:45→23:00)
[2018-04-24] MEDS: ENOXAPARIN SODIUM INJ 40 MG/0.4 ML DISP.SYRIN SUBCUT SCH (09:47)
--- NOTE | 2018-04-24 15:35 | PDOC PROGRESS REPORT ---
Subjective Progress Note for:: 05/01/18 Subjective:: Patient was seen by the bedside, still awaiting placement Reason For Visit: HYPOTHERMIA,HYPOTENSION Physical Exam Vital Signs: Temp Pulse Resp BP Pulse Ox 97.9 F 96 20 109/66 98 04/24/18 11:48 04/24/18 11:48 04/24/18 11:48 04/24/18 11:48 04/24/18 11:48 Intake & Output 04/23/18 04/24/18 04/25/18 06:59 06:59 06:59 Intake Total 1581 2438 Output Total 7 Balance 1581 2431 Weight 81.5 kg 81.3 kg General appearance: PRESENT: no acute distress Eye exam: PRESENT: PERRLA Respiratory exam: PRESENT: clear to auscultation delores Cardiovascular exam: PRESENT: +S1, +S2 Murmur grade: 3 GI/Abdominal exam: PRESENT: soft Results Laboratory Results: 04/11/18 09:30 04/11/18 09:30 03/24/18 03/24/18 03/25/18 18:45 18:45 00:45 Creatine Kinase 670 H 414 H CK-MB (CK-2) 10.50 H Troponin I < 0.012 03/25/18 03/25/18 03/25/18 00:45 06:50 06:50 Creatine Kinase 318 H CK-MB (CK-2) 6.56 H 5.19 H Troponin I < 0.012 < 0.012 Impressions: Head CT 03/24/18 15:10 IMPRESSION: No acute intracranial changes. No skull fracture. Scalp hematomas. EVIDENCE OF ACUTE STROKE: NO. Chest X-Ray 03/24/18 15:59 IMPRESSION: 1 Low lung volumes. NO ACUTE RADIOGRAPHIC FINDING IN THE CHEST. Assessment & Plan - Diagnosis (1) Hypotension Qualifiers: Hypotension type: unspecified hypotension type Qualified Code(s): I95.9 - Hypotension, unspecified Is this a current diagnosis for this admission?: Yes (2) Hypothermia Qualifiers: Encounter type: subsequent encounter Qualified Code(s): T68.XXXD - Hypothermia, subsequent encounter Is this a current diagnosis for this admission?: Yes (3) Subclinical hypothyroidism Is this a current diagnosis for this admission?: Yes (4) Metabolic encephalopathy Is this a current diagnosis for this admission?: Yes (5) Hyperbilirubinemia Is this a current diagnosis for this admission?: Yes
[2018-04-24] MEDS: LORAZEPAM 1 MG TABLET PO PRN ×2 (15:36→23:00)
[2018-04-24] MEDS ORDERED: HALOPERIDOL LACTATE INJ 5 MG/1 ML VIAL IM ONE (18:15)
[2018-04-24] MEDS: TRAZODONE HCL 50 MG TABLET PO SCH (23:00)
[2018-04-25] MEDS: LEVOTHYROXINE SODIUM 0.05 MG TABLET PO SCH (06:35)
[2018-04-25] MEDS: THIORIDAZINE HCL PO SCH ×3 (08:13→23:17)
[2018-04-25] MEDS: HYDROXYZINE PAMOATE 50 MG CAPSULE PO SCH ×2 (08:14→23:16)
[2018-04-25] MEDS: PSYLLIUM SEED-SF 5.85 GM PACKET PO SCH ×4 (09:47→23:21)
[2018-04-25] MEDS: ENOXAPARIN SODIUM INJ 40 MG/0.4 ML DISP.SYRIN SUBCUT SCH (09:48)
[2018-04-25] MEDS: OXCARBAZEPINE 300 MG/5 ML SUSP 250ML/BOTTLE PO SCH ×2 (09:48→23:20)
[2018-04-25] MEDS: VALPROATE SODIUM SYRUP 250 MG/5 ML UDCUP PO SCH ×2 (09:48→23:20)
[2018-04-25] MEDS: LORAZEPAM 1 MG TABLET PO PRN ×2 (15:39→23:18)
[2018-04-25] MEDS ORDERED: LORAZEPAM INJ 2 MG/1 ML VIAL ONE (16:02)
[2018-04-25] MEDS ORDERED: LORAZEPAM INJ 2 MG/1 ML VIAL IM ONE (16:30)
[2018-04-25] MEDS ORDERED: HALOPERIDOL LACTATE INJ 5 MG/1 ML VIAL IM PRN (18:53)
[2018-04-25 19:40] LABS: ABSOLUTE LYMPHOCYTES (AUTO) 2.2 10^3/uL (0.5-4.7); ABSOLUTE MONOCYTES (AUTO) 1.3 10^3/uL (0.1-1.4); ABSOLUTE NEUT (AUTO) 4.7 10^3/uL (1.7-8.2); BASOPHILS % (AUTO) 0.5 % (0-2); EOSINOPHILS % (AUTO) 0.5 % (0-6); HEMATOCRIT 40.6 % (37.9-51.0); HEMOGLOBIN 13.7 g/dL (13.5-17.0); LYMPHOCYTES % (AUTO) 26.2 % (13-45); MEAN CORPUSCULAR HEMOGLOBIN 28.7 pg (27.0-33.4); MEAN CORPUSCULAR HGB CONC 33.7 g/dL (32.0-36.0); MEAN CORPUSCULAR VOLUME 85 fl (80-97); MONOCYTES % (AUTO) 15.4 % (3-13); PLATELET COUNT 325 10^3/uL (150-450); RED BLOOD COUNT 4.76 10^6/uL (4.35-5.55); RED CELL DISTRIBUTION WIDTH 15.9 % (11.5-14.0); SEGMENTED NEUTROPHILS % (AUTO) 57.4 % (42-78); TOTAL CELLS COUNTED % (AUTO) 100 %; WHITE BLOOD COUNT 8.3 10^3/uL (4.0-10.5)
[2018-04-25 20:02] LABS: ANION GAP 13 (5-19); BLOOD UREA NITROGEN 14 mg/dL (7-20); CALCIUM 10.2 mg/dL (8.4-10.2); CARBON DIOXIDE 29 mmol/L (22-30); CHLORIDE 100 mmol/L (98-107); GLUCOSE 89 mg/dL (75-110); POTASSIUM 4.7 mmol/L (3.6-5.0); SODIUM 141.9 mmol/L (137-145)
--- NOTE | 2018-04-25 20:03 | PDOC PROGRESS REPORT ---
Subjective Progress Note for:: 04/25/18 Subjective:: Patient still awaiting placement Reason For Visit: HYPOTHERMIA,HYPOTENSION Physical Exam Vital Signs: Temp Pulse Resp BP Pulse Ox 97.7 F 95 20 133/79 H 98 04/25/18 16:54 04/25/18 16:54 04/25/18 16:54 04/25/18 16:54 04/25/18 12:00 Intake & Output 04/24/18 04/25/18 04/26/18 06:59 06:59 06:59 Intake Total 2438 580 946 Output Total 7 Balance 2431 580 946 Weight 81.3 kg 81.1 kg General appearance: PRESENT: no acute distress Eye exam: PRESENT: PERRLA Respiratory exam: PRESENT: clear to auscultation delores Cardiovascular exam: PRESENT: +S1, +S2 Murmur grade: 3 GI/Abdominal exam: PRESENT: soft Neurological exam: PRESENT: alert Results Laboratory Results: 04/25/18 19:30 04/25/18 04/25/18 19:30 19:30 WBC 8.3 RBC 4.76 Hgb 13.7 Hct 40.6 MCV 85 MCH 28.7 MCHC 33.7 RDW 15.9 H Plt Count 325 Seg Neutrophils % 57.4 Lymphocytes % 26.2 Monocytes % 15.4 H Eosinophils % 0.5 Basophils % 0.5 Absolute Neutrophils 4.7 Absolute Lymphocytes 2.2 Absolute Monocytes 1.3 Absolute Eosinophils 0.0 Absolute Basophils 0.0 Ammonia 21.4 03/24/18 03/24/18 03/25/18 18:45 18:45 00:45 Creatine Kinase 670 H 414 H CK-MB (CK-2) 10.50 H Troponin I < 0.012 03/25/18 03/25/18 03/25/18 00:45 06:50 06:50 Creatine Kinase 318 H CK-MB (CK-2) 6.56 H 5.19 H Troponin I < 0.012 < 0.012 Impressions: Head CT 03/24/18 15:10 IMPRESSION: No acute intracranial changes. No skull fracture. Scalp hematomas. EVIDENCE OF ACUTE STROKE: NO. Chest X-Ray 03/24/18 15:59 IMPRESSION: 1 Low lung volumes. NO ACUTE RADIOGRAPHIC FINDING IN THE CHEST. Assessment & Plan - Diagnosis (1) Hypotension Qualifiers: Hypotension type: unspecified hypotension type Qualified Code(s): I95.9 - Hypotension, unspecified Is this a current diagnosis for this admission?: Yes (2) Hypothermia Qualifiers: Encounter type: subsequent encounter Qualified Code(s): T68.XXXD - Hypothermia, subsequent encounter Is this a current diagnosis for this admission?: Yes (3) Subclinical hypothyroidism Is this a current diagnosis for this admission?: Yes (4) Metabolic encephalopathy Is this a current diagnosis for this admission?: Yes (5) Hyperbilirubinemia Is this a current diagnosis for this admission?: Yes
[2018-04-25] MEDS: TRAZODONE HCL 50 MG TABLET PO SCH (23:17)
[2018-04-26] MEDS: LEVOTHYROXINE SODIUM 0.05 MG TABLET PO SCH (07:40)
[2018-04-26] MEDS: THIORIDAZINE HCL PO SCH ×3 (07:41→19:22)
[2018-04-26] MEDS: HYDROXYZINE PAMOATE 50 MG CAPSULE PO SCH (07:41)
[2018-04-26] MEDS: LORAZEPAM 1 MG TABLET PO PRN (07:48)
[2018-04-26] MEDS: ENOXAPARIN SODIUM INJ 40 MG/0.4 ML DISP.SYRIN SUBCUT SCH (11:49)
[2018-04-26] MEDS: PSYLLIUM SEED-SF 5.85 GM PACKET PO SCH ×4 (11:51→21:21)
[2018-04-26] MEDS: OXCARBAZEPINE 300 MG/5 ML SUSP 250ML/BOTTLE PO SCH ×2 (11:52→21:21)
[2018-04-26] MEDS: VALPROATE SODIUM SYRUP 250 MG/5 ML UDCUP PO SCH ×2 (11:53→21:21)
--- NOTE | 2018-04-26 17:04 | PSYCHOLOGICAL NOTE ---
Psych Note - Psych Note Psych Note: Reason for consult; medication recommendations 32 yo nonverbal autistic behavioral aggression chemically sedated [place] he lived with his mother. 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 Dr. Medrano PCP. was hospitalized 5-15 for pancreatitis. Wednesday he was asleep, when time for lunch, woke up, went to the room and fell in the velázquez. No change in medications in February, routine not changed. Medication recommendations per [facility]'s contracted psychiatrist Dr. Keeley MOONEY are as follows 1. Please discontinue Haldol, Vistaril, and Ativan 2. Please continue patient's home medications of clonazepam and Restoril 3. Please add clonidine 0.2 mg 24hr patch Diagnosis 299.00 (F84.0) autism spectrum disorder; severe Impression\plan: Patient is cleared from acute psychiatric services. Patient is nonverbal has a diagnosis of autism. Medication recommendations were requested because of behavioral aggression and self-harm. Medication augmentations have been provided. Patient was currently in a snf however discharge planning is working with patient and family to find a new placement. Dr. York was consulted and the care and management this patient; attending physician is agreement with recommendations and disposition.
[2018-04-26] MEDS: CLONIDINE 0.2 MG/24 HR PATCH.TDWK TD SCH (18:34)
[2018-04-26] MEDS: CLONAZEPAM 1 MG TABLET PO SCH (19:19)
[2018-04-26] MEDS: TEMAZEPAM 15 MG CAPSULE PO SCH (19:19)
--- NOTE | 2018-04-26 19:28 | PDOC PROGRESS REPORT ---
Subjective Progress Note for:: 04/26/18 Subjective:: Patient still awaiting placement Reason For Visit: HYPOTHERMIA,HYPOTENSION Physical Exam Vital Signs: Temp Pulse Resp BP Pulse Ox 98.7 F 79 13 154/77 H 100 04/26/18 18:40 04/26/18 18:40 04/26/18 18:40 04/26/18 18:40 04/26/18 18:40 Intake & Output 04/25/18 04/26/18 04/27/18 06:59 06:59 06:59 Intake Total 580 1399 684 Balance 580 1399 684 Weight 81.1 kg 78.5 kg General appearance: PRESENT: no acute distress Eye exam: PRESENT: PERRLA Respiratory exam: PRESENT: clear to auscultation delores Cardiovascular exam: PRESENT: +S1, +S2 Murmur grade: 3 GI/Abdominal exam: PRESENT: soft Neurological exam: PRESENT: alert Results Laboratory Results: 04/25/18 19:30 04/25/18 19:32 04/25/18 04/25/18 04/25/18 19:30 19:30 19:32 WBC 8.3 RBC 4.76 Hgb 13.7 Hct 40.6 MCV 85 MCH 28.7 MCHC 33.7 RDW 15.9 H Plt Count 325 Seg Neutrophils % 57.4 Lymphocytes % 26.2 Monocytes % 15.4 H Eosinophils % 0.5 Basophils % 0.5 Absolute Neutrophils 4.7 Absolute Lymphocytes 2.2 Absolute Monocytes 1.3 Absolute Eosinophils 0.0 Absolute Basophils 0.0 Sodium 141.9 Potassium 4.7 Chloride 100 Carbon Dioxide 29 Anion Gap 13 BUN 14 Creatinine 0.64 Est GFR ( Amer) > 60 Est GFR (Non-Af Amer) > 60 Glucose 89 Calcium 10.2 Ammonia 21.4 03/24/18 03/24/18 03/25/18 18:45 18:45 00:45 Creatine Kinase 670 H 414 H CK-MB (CK-2) 10.50 H Troponin I < 0.012 03/25/18 03/25/18 03/25/18 00:45 06:50 06:50 Creatine Kinase 318 H CK-MB (CK-2) 6.56 H 5.19 H Troponin I < 0.012 < 0.012 Impressions: Head CT 03/24/18 15:10 IMPRESSION: No acute intracranial changes. No skull fracture. Scalp hematomas. EVIDENCE OF ACUTE STROKE: NO. Chest X-Ray 03/24/18 15:59 IMPRESSION: 1 Low lung volumes. NO ACUTE RADIOGRAPHIC FINDING IN THE CHEST. Assessment & Plan - Diagnosis (1) Hypotension Qualifiers: Hypotension type: unspecified hypotension type Qualified Code(s): I95.9 - Hypotension, unspecified Is this a current diagnosis for this admission?: Yes (2) Hypothermia Qualifiers: Encounter type: subsequent encounter Qualified Code(s): T68.XXXD - Hypothermia, subsequent encounter Is this a current diagnosis for this admission?: Yes (3) Subclinical hypothyroidism Is this a current diagnosis for this admission?: Yes (4) Metabolic encephalopathy Is this a current diagnosis for this admission?: Yes (5) Hyperbilirubinemia Is this a current diagnosis for this admission?: Yes
[2018-04-26] MEDS: TRAZODONE HCL 50 MG TABLET PO SCH (21:21)
[2018-04-27] MEDS: LEVOTHYROXINE SODIUM 0.05 MG TABLET PO SCH (07:38)
[2018-04-27] MEDS: CLONAZEPAM 1 MG TABLET PO SCH ×2 (08:29→23:21)
[2018-04-27] MEDS: THIORIDAZINE HCL PO SCH ×3 (08:29→23:22)
[2018-04-27] MEDS: ENOXAPARIN SODIUM INJ 40 MG/0.4 ML DISP.SYRIN SUBCUT SCH (10:24)
[2018-04-27] MEDS: OXCARBAZEPINE 300 MG/5 ML SUSP 250ML/BOTTLE PO SCH ×2 (10:24→23:23)
[2018-04-27] MEDS: VALPROATE SODIUM SYRUP 250 MG/5 ML UDCUP PO SCH ×2 (10:25→23:26)
[2018-04-27] MEDS: PSYLLIUM SEED-SF 5.85 GM PACKET PO SCH ×4 (10:25→23:27)
--- NOTE | 2018-04-27 17:48 | PDOC PROGRESS REPORT ---
Subjective Progress Note for:: 04/27/18 Subjective:: Patient was seen by the bedside, still awaiting placement Reason For Visit: HYPOTHERMIA,HYPOTENSION Physical Exam Vital Signs: Temp Pulse Resp BP Pulse Ox 97.5 F 106 H 20 96/59 L 93 04/27/18 12:00 04/27/18 16:00 04/27/18 16:00 04/27/18 16:00 04/27/18 16:00 Intake & Output 04/26/18 04/27/18 04/28/18 06:59 06:59 06:59 Intake Total 1399 1034 Output Total 3 Balance 1399 1031 Weight 78.5 kg 78.1 kg General appearance: PRESENT: no acute distress Eye exam: PRESENT: PERRLA Respiratory exam: PRESENT: clear to auscultation delores Cardiovascular exam: PRESENT: +S1, +S2 Murmur grade: 3 GI/Abdominal exam: PRESENT: soft Results Laboratory Results: 04/25/18 19:30 04/25/18 19:32 03/24/18 03/24/18 03/25/18 18:45 18:45 00:45 Creatine Kinase 670 H 414 H CK-MB (CK-2) 10.50 H Troponin I < 0.012 03/25/18 03/25/18 03/25/18 00:45 06:50 06:50 Creatine Kinase 318 H CK-MB (CK-2) 6.56 H 5.19 H Troponin I < 0.012 < 0.012 Impressions: Head CT 03/24/18 15:10 IMPRESSION: No acute intracranial changes. No skull fracture. Scalp hematomas. EVIDENCE OF ACUTE STROKE: NO. Chest X-Ray 03/24/18 15:59 IMPRESSION: 1 Low lung volumes. NO ACUTE RADIOGRAPHIC FINDING IN THE CHEST. Assessment & Plan - Diagnosis (1) Hypotension Qualifiers: Hypotension type: unspecified hypotension type Qualified Code(s): I95.9 - Hypotension, unspecified Is this a current diagnosis for this admission?: Yes (2) Hypothermia Qualifiers: Encounter type: subsequent encounter Qualified Code(s): T68.XXXD - Hypothermia, subsequent encounter Is this a current diagnosis for this admission?: Yes (3) Subclinical hypothyroidism Is this a current diagnosis for this admission?: Yes (4) Metabolic encephalopathy Is this a current diagnosis for this admission?: Yes (5) Hyperbilirubinemia Is this a current diagnosis for this admission?: Yes
[2018-04-27] MEDS: CLONIDINE 0.2 MG/24 HR PATCH.TDWK TD SCH (18:16)
[2018-04-27] MEDS: TEMAZEPAM 15 MG CAPSULE PO SCH (23:21)
[2018-04-27] MEDS: TRAZODONE HCL 50 MG TABLET PO SCH (23:25)
[2018-04-28] MEDS: LEVOTHYROXINE SODIUM 0.05 MG TABLET PO SCH (06:26)
[2018-04-28] MEDS: CLONAZEPAM 1 MG TABLET PO SCH ×2 (08:26→21:00)
[2018-04-28] MEDS: THIORIDAZINE HCL PO SCH ×3 (08:27→21:00)
[2018-04-28] MEDS: ENOXAPARIN SODIUM INJ 40 MG/0.4 ML DISP.SYRIN SUBCUT SCH (10:01)
[2018-04-28] MEDS: OXCARBAZEPINE 300 MG/5 ML SUSP 250ML/BOTTLE PO SCH ×2 (10:01→21:11)
[2018-04-28] MEDS: VALPROATE SODIUM SYRUP 250 MG/5 ML UDCUP PO SCH ×2 (10:02→21:12)
[2018-04-28] MEDS: PSYLLIUM SEED-SF 5.85 GM PACKET PO SCH ×4 (10:02→21:12)
[2018-04-28] MEDS: CLONIDINE 0.2 MG/24 HR PATCH.TDWK TD SCH (17:43)
--- NOTE | 2018-04-28 20:30 | PDOC PROGRESS REPORT ---
Subjective Progress Note for:: 04/28/18 Subjective:: Patient was seen by the bedside, still awaiting placement Reason For Visit: HYPOTHERMIA,HYPOTENSION Physical Exam Vital Signs: Temp Pulse Resp BP Pulse Ox 98.3 F 52 L 17 120/76 99 04/28/18 20:01 04/28/18 20:01 04/28/18 20:01 04/28/18 20:01 04/28/18 20:01 Intake & Output 04/27/18 04/28/18 04/29/18 06:59 06:59 06:59 Intake Total 1034 554 Output Total 3 Balance 1031 554 Weight 78.1 kg 80.4 kg General appearance: PRESENT: no acute distress Eye exam: PRESENT: PERRLA Respiratory exam: PRESENT: clear to auscultation delores Cardiovascular exam: PRESENT: +S1, +S2 Murmur grade: 3 Results Laboratory Results: 04/25/18 19:30 04/25/18 19:32 03/24/18 03/24/18 03/25/18 18:45 18:45 00:45 Creatine Kinase 670 H 414 H CK-MB (CK-2) 10.50 H Troponin I < 0.012 03/25/18 03/25/18 03/25/18 00:45 06:50 06:50 Creatine Kinase 318 H CK-MB (CK-2) 6.56 H 5.19 H Troponin I < 0.012 < 0.012 Impressions: Head CT 03/24/18 15:10 IMPRESSION: No acute intracranial changes. No skull fracture. Scalp hematomas. EVIDENCE OF ACUTE STROKE: NO. Chest X-Ray 03/24/18 15:59 IMPRESSION: 1 Low lung volumes. NO ACUTE RADIOGRAPHIC FINDING IN THE CHEST. Assessment & Plan - Diagnosis (1) Hypotension Qualifiers: Hypotension type: unspecified hypotension type Qualified Code(s): I95.9 - Hypotension, unspecified Is this a current diagnosis for this admission?: Yes (2) Hypothermia Qualifiers: Encounter type: subsequent encounter Qualified Code(s): T68.XXXD - Hypothermia, subsequent encounter Is this a current diagnosis for this admission?: Yes (3) Subclinical hypothyroidism Is this a current diagnosis for this admission?: Yes (4) Metabolic encephalopathy Is this a current diagnosis for this admission?: Yes (5) Hyperbilirubinemia Is this a current diagnosis for this admission?: Yes
[2018-04-28] MEDS: TEMAZEPAM 15 MG CAPSULE PO SCH (21:00)
[2018-04-28] MEDS: TRAZODONE HCL 50 MG TABLET PO SCH (21:12)
[2018-04-29] MEDS: LEVOTHYROXINE SODIUM 0.05 MG TABLET PO SCH (06:29)
[2018-04-29] MEDS: THIORIDAZINE HCL PO SCH ×3 (07:56→19:33)
[2018-04-29] MEDS: CLONAZEPAM 1 MG TABLET PO SCH ×2 (07:56→19:33)
[2018-04-29] MEDS: VALPROATE SODIUM SYRUP 250 MG/5 ML UDCUP PO SCH ×2 (11:02→22:54)
[2018-04-29] MEDS: ENOXAPARIN SODIUM INJ 40 MG/0.4 ML DISP.SYRIN SUBCUT SCH (11:02)
[2018-04-29] MEDS: OXCARBAZEPINE 300 MG/5 ML SUSP 250ML/BOTTLE PO SCH ×2 (11:02→22:54)
[2018-04-29] MEDS: PSYLLIUM SEED-SF 5.85 GM PACKET PO SCH ×4 (11:03→22:54)
[2018-04-29] MEDS: CLONIDINE 0.2 MG/24 HR PATCH.TDWK TD SCH (17:26)
[2018-04-29] MEDS: TEMAZEPAM 15 MG CAPSULE PO SCH (19:33)
--- NOTE | 2018-04-29 20:26 | PDOC PROGRESS REPORT ---
Subjective Progress Note for:: 04/29/18 Subjective:: Patient was seen by the bedside, still awaiting placement Reason For Visit: HYPOTHERMIA,HYPOTENSION Physical Exam Vital Signs: Temp Pulse Resp BP Pulse Ox 98.0 F 58 L 16 96/51 L 100 04/29/18 15:51 04/29/18 15:51 04/29/18 15:51 04/29/18 15:51 04/29/18 15:51 Intake & Output 04/28/18 04/29/18 04/30/18 06:59 06:59 06:59 Intake Total 1440 1566 Balance 1440 1566 Weight 80.4 kg 80.5 kg General appearance: PRESENT: no acute distress Eye exam: PRESENT: PERRLA Respiratory exam: PRESENT: clear to auscultation delores Cardiovascular exam: PRESENT: +S1, +S2 Murmur grade: 3 Results Laboratory Results: 04/25/18 19:30 04/25/18 19:32 03/24/18 03/24/18 03/25/18 18:45 18:45 00:45 Creatine Kinase 670 H 414 H CK-MB (CK-2) 10.50 H Troponin I < 0.012 03/25/18 03/25/18 03/25/18 00:45 06:50 06:50 Creatine Kinase 318 H CK-MB (CK-2) 6.56 H 5.19 H Troponin I < 0.012 < 0.012 Impressions: Head CT 03/24/18 15:10 IMPRESSION: No acute intracranial changes. No skull fracture. Scalp hematomas. EVIDENCE OF ACUTE STROKE: NO. Chest X-Ray 03/24/18 15:59 IMPRESSION: 1 Low lung volumes. NO ACUTE RADIOGRAPHIC FINDING IN THE CHEST. Assessment & Plan - Diagnosis (1) Hypotension Qualifiers: Hypotension type: unspecified hypotension type Qualified Code(s): I95.9 - Hypotension, unspecified Is this a current diagnosis for this admission?: Yes (2) Hypothermia Qualifiers: Encounter type: subsequent encounter Qualified Code(s): T68.XXXD - Hypothermia, subsequent encounter Is this a current diagnosis for this admission?: Yes (3) Subclinical hypothyroidism Is this a current diagnosis for this admission?: Yes (4) Metabolic encephalopathy Is this a current diagnosis for this admission?: Yes (5) Hyperbilirubinemia Is this a current diagnosis for this admission?: Yes
[2018-04-29] MEDS: TRAZODONE HCL 50 MG TABLET PO SCH (22:54)
[2018-04-30] MEDS: LEVOTHYROXINE SODIUM 0.05 MG TABLET PO SCH (05:31)
[2018-04-30] MEDS: ENOXAPARIN SODIUM INJ 40 MG/0.4 ML DISP.SYRIN SUBCUT SCH (09:11)
[2018-04-30] MEDS: CLONAZEPAM 1 MG TABLET PO SCH ×2 (09:11→22:04)
[2018-04-30] MEDS: OXCARBAZEPINE 300 MG/5 ML SUSP 250ML/BOTTLE PO SCH ×2 (09:11→22:05)
[2018-04-30] MEDS: THIORIDAZINE HCL PO SCH ×3 (09:12→22:05)
[2018-04-30] MEDS: VALPROATE SODIUM SYRUP 250 MG/5 ML UDCUP PO SCH ×2 (09:12→22:05)
[2018-04-30] MEDS: PSYLLIUM SEED-SF 5.85 GM PACKET PO SCH ×4 (09:12→22:05)
--- NOTE | 2018-04-30 11:48 | PDOC PROGRESS REPORT ---
Subjective Progress Note for:: 04/30/18 Subjective:: This is a 32-year-old male with a significant history of the behavior problem possible autistic disorders currently live in a [facility] with the self- destructive behavior and injure himself admitted because of the not acting properly and hypothermia and hypotension's with currently resolving with the IV fluids and no sign of any sepsis Patient is still waiting since last my encounter for waiting for the bed according to the nursing staff and no other concern Reason For Visit: HYPOTHERMIA,HYPOTENSION Physical Exam Vital Signs: Temp Pulse Resp BP Pulse Ox 97.6 F 51 L 16 102/55 L 95 04/30/18 08:00 04/30/18 08:00 04/30/18 08:00 04/30/18 08:00 04/30/18 08:00 Intake & Output 04/29/18 04/30/18 05/01/18 06:59 06:59 06:59 Intake Total 1440 1566 Balance 1440 1566 Weight 80.5 kg 80.5 kg General appearance: PRESENT: no acute distress Eye exam: PRESENT: PERRLA Mouth exam: PRESENT: neck supple Respiratory exam: PRESENT: clear to auscultation delores Cardiovascular exam: PRESENT: +S1, +S2 Murmur grade: 3 GI/Abdominal exam: PRESENT: normal bowel sounds, soft Extremities exam: ABSENT: pedal edema Neurological exam: PRESENT: alert, awake Results Laboratory Results: 04/25/18 19:30 04/25/18 19:32 03/24/18 03/24/18 03/25/18 18:45 18:45 00:45 Creatine Kinase 670 H 414 H CK-MB (CK-2) 10.50 H Troponin I < 0.012 03/25/18 03/25/18 03/25/18 00:45 06:50 06:50 Creatine Kinase 318 H CK-MB (CK-2) 6.56 H 5.19 H Troponin I < 0.012 < 0.012 Impressions: Head CT 03/24/18 15:10 IMPRESSION: No acute intracranial changes. No skull fracture. Scalp hematomas. EVIDENCE OF ACUTE STROKE: NO. Chest X-Ray 03/24/18 15:59 IMPRESSION: 1 Low lung volumes. NO ACUTE RADIOGRAPHIC FINDING IN THE CHEST. Assessment & Plan - Diagnosis (1) Hypotension Qualifiers: Hypotension type: unspecified hypotension type Qualified Code(s): I95.9 - Hypotension, unspecified Is this a current diagnosis for this admission?: Yes (2) Hypothermia Qualifiers: Encounter type: initial encounter Qualified Code(s): T68.XXXA - Hypothermia , initial encounter Is this a current diagnosis for this admission?: Yes (3) Metabolic encephalopathy Is this a current diagnosis for this admission?: Yes (4) Subclinical hypothyroidism Is this a current diagnosis for this admission?: Yes (5) Autism Is this a current diagnosis for this admission?: Yes - Time Time Spent with patient: Less than 15 minutes Medications reviewed and adjusted accordingly: Yes Anticipated discharge: SNF Within: Other - Inpatient Certification Medical Necessity: Need Close Monitoring Due to Risk of Patient Decompensation Post Hospital Care: D/C Paint Supervisor Documentation - Plan Summary Plan Summary: Since waiting for the placement
[2018-04-30] MEDS: CLONIDINE 0.2 MG/24 HR PATCH.TDWK TD SCH (18:00)
[2018-04-30] MEDS: TRAZODONE HCL 50 MG TABLET PO SCH (22:05)
[2018-04-30] MEDS: TEMAZEPAM 15 MG CAPSULE PO SCH (22:05)
[2018-05-01] MEDS: LEVOTHYROXINE SODIUM 0.05 MG TABLET PO SCH (05:45)
[2018-05-01] MEDS: CLONAZEPAM 1 MG TABLET PO SCH ×2 (09:15→21:09)
[2018-05-01] MEDS: THIORIDAZINE HCL PO SCH ×3 (09:16→20:01)
[2018-05-01] MEDS: ENOXAPARIN SODIUM INJ 40 MG/0.4 ML DISP.SYRIN SUBCUT SCH (09:16)
[2018-05-01] MEDS: PSYLLIUM SEED-SF 5.85 GM PACKET PO SCH ×4 (09:16→21:08)
[2018-05-01] MEDS: OXCARBAZEPINE 300 MG/5 ML SUSP 250ML/BOTTLE PO SCH ×2 (09:16→21:09)
[2018-05-01] MEDS: VALPROATE SODIUM SYRUP 250 MG/5 ML UDCUP PO SCH ×2 (09:16→21:08)
--- NOTE | 2018-05-01 10:33 | PDOC PROGRESS REPORT ---
Subjective Progress Note for:: 05/01/18 Subjective:: This is a 32-year-old male with a significant history of the behavior problem possible autistic disorders currently live in a [facility] with the self- destructive behavior and injure himself admitted because of the not acting properly and hypothermia and hypotension's with currently resolving with the IV fluids and no sign of any sepsis Patient is still waiting since last my encounter for waiting for the bed according to the nursing staff and no other concern Reason For Visit: HYPOTHERMIA,HYPOTENSION Physical Exam Vital Signs: Temp Pulse Resp BP Pulse Ox 97.8 F 85 20 95/68 L 100 05/01/18 08:13 05/01/18 08:13 05/01/18 08:13 05/01/18 08:13 05/01/18 08:13 Intake & Output 04/30/18 05/01/18 05/02/18 06:59 06:59 06:59 Intake Total 1566 1321 Balance 1566 1321 Weight 80.5 kg 80.5 kg General appearance: PRESENT: no acute distress Eye exam: PRESENT: PERRLA Mouth exam: PRESENT: neck supple Respiratory exam: PRESENT: clear to auscultation delores Murmur grade: 3 GI/Abdominal exam: PRESENT: normal bowel sounds, soft Extremities exam: ABSENT: pedal edema Neurological exam: PRESENT: alert, awake Skin exam: PRESENT: dry Results Laboratory Results: 04/25/18 19:30 04/25/18 19:32 04/25/18 20:40 Blood Blood Culture - Final NO GROWTH IN 5 DAYS 04/25/18 19:30 Blood Blood Culture - Final NO GROWTH IN 5 DAYS 03/24/18 03/24/18 03/25/18 18:45 18:45 00:45 Creatine Kinase 670 H 414 H CK-MB (CK-2) 10.50 H Troponin I < 0.012 03/25/18 03/25/18 03/25/18 00:45 06:50 06:50 Creatine Kinase 318 H CK-MB (CK-2) 6.56 H 5.19 H Troponin I < 0.012 < 0.012 Impressions: Head CT 03/24/18 15:10 IMPRESSION: No acute intracranial changes. No skull fracture. Scalp hematomas. EVIDENCE OF ACUTE STROKE: NO. Chest X-Ray 03/24/18 15:59 IMPRESSION: 1 Low lung volumes. NO ACUTE RADIOGRAPHIC FINDING IN THE CHEST. Assessment & Plan - Diagnosis (1) Hypotension Qualifiers: Hypotension type: unspecified hypotension type Qualified Code(s): I95.9 - Hypotension, unspecified Is this a current diagnosis for this admission?: Yes (2) Hypothermia Qualifiers: Encounter type: initial encounter Qualified Code(s): T68.XXXA - Hypothermia , initial encounter Is this a current diagnosis for this admission?: Yes (3) Metabolic encephalopathy Is this a current diagnosis for this admission?: Yes (4) Subclinical hypothyroidism Is this a current diagnosis for this admission?: Yes (5) Autism Is this a current diagnosis for this admission?: Yes - Time Time Spent with patient: 15-24 minutes Medications reviewed and adjusted accordingly: Yes Anticipated discharge: Other Within: Other - Inpatient Certification Medical Necessity: Need Close Monitoring Due to Risk of Patient Decompensation, Need for IV Antibiotics Post Hospital Care: D/C Pot Builder Documentation - Plan Summary Plan Summary: Patient is currently waiting for the bed
[2018-05-01] MEDS: CLONIDINE 0.2 MG/24 HR PATCH.TDWK TD SCH (18:08)
[2018-05-01] MEDS ORDERED: NORMAL SALINE 1000 ML 1,000 ML IV PRN (19:47)
[2018-05-01] MEDS: TEMAZEPAM 15 MG CAPSULE PO SCH (20:01)
[2018-05-01] MEDS: TRAZODONE HCL 50 MG TABLET PO SCH (21:08)
[2018-05-02] MEDS: LEVOTHYROXINE SODIUM 0.05 MG TABLET PO SCH (05:29)
[2018-05-02] MEDS: THIORIDAZINE HCL PO SCH ×3 (08:23→20:22)
[2018-05-02] MEDS: CLONAZEPAM 1 MG TABLET PO SCH ×2 (08:23→20:22)
[2018-05-02] MEDS: PSYLLIUM SEED-SF 5.85 GM PACKET PO SCH ×4 (10:31→23:05)
[2018-05-02] MEDS: VALPROATE SODIUM SYRUP 250 MG/5 ML UDCUP PO SCH ×2 (10:31→23:06)
[2018-05-02] MEDS: ENOXAPARIN SODIUM INJ 40 MG/0.4 ML DISP.SYRIN SUBCUT SCH (10:31)
[2018-05-02] MEDS: OXCARBAZEPINE 300 MG/5 ML SUSP 250ML/BOTTLE PO SCH ×2 (10:31→23:05)
[2018-05-02] MEDS: CLONIDINE 0.2 MG/24 HR PATCH.TDWK TD SCH (19:18)
[2018-05-02] MEDS: TEMAZEPAM 15 MG CAPSULE PO SCH (20:22)
--- NOTE | 2018-05-02 20:31 | PDOC PROGRESS REPORT ---
Subjective Progress Note for:: 05/02/18 Subjective:: Patient seen by the bedside, he is getting more violent, agitated ,banging his head on the bed, requiring restraint, discharge planning yet to find placement for this patient, he was seen by psychiatry so far the recommended medication is not effective ,patient is still very disruptive we will add lorazepam as needed Reason For Visit: HYPOTHERMIA,HYPOTENSION Physical Exam Vital Signs: Temp Pulse Resp BP Pulse Ox 97.5 F 109 H 16 106/61 87 L 05/02/18 07:41 05/02/18 07:41 05/02/18 07:41 05/02/18 07:41 05/02/18 07:41 Intake & Output 05/01/18 05/02/18 05/03/18 06:59 06:59 06:59 Intake Total 1321 1366 480 Balance 1321 1366 480 Weight 80.5 kg 80.7 kg General appearance: PRESENT: no acute distress Eye exam: PRESENT: PERRLA Respiratory exam: PRESENT: clear to auscultation delores Cardiovascular exam: PRESENT: +S1, +S2 Murmur grade: 3 GI/Abdominal exam: PRESENT: soft Neurological exam: PRESENT: alert Results Laboratory Results: 04/25/18 19:30 04/25/18 19:32 03/24/18 03/24/18 03/25/18 18:45 18:45 00:45 Creatine Kinase 670 H 414 H CK-MB (CK-2) 10.50 H Troponin I < 0.012 03/25/18 03/25/18 03/25/18 00:45 06:50 06:50 Creatine Kinase 318 H CK-MB (CK-2) 6.56 H 5.19 H Troponin I < 0.012 < 0.012 Impressions: Head CT 03/24/18 15:10 IMPRESSION: No acute intracranial changes. No skull fracture. Scalp hematomas. EVIDENCE OF ACUTE STROKE: NO. Chest X-Ray 03/24/18 15:59 IMPRESSION: 1 Low lung volumes. NO ACUTE RADIOGRAPHIC FINDING IN THE CHEST. Assessment & Plan - Diagnosis (1) Hypotension Qualifiers: Hypotension type: unspecified hypotension type Qualified Code(s): I95.9 - Hypotension, unspecified Is this a current diagnosis for this admission?: Yes (2) Hypothermia Qualifiers: Encounter type: subsequent encounter Qualified Code(s): T68.XXXD - Hypothermia, subsequent encounter Is this a current diagnosis for this admission?: Yes (3) Subclinical hypothyroidism Is this a current diagnosis for this admission?: Yes (4) Metabolic encephalopathy Is this a current diagnosis for this admission?: Yes (5) Hyperbilirubinemia Is this a current diagnosis for this admission?: Yes
[2018-05-02] MEDS: TRAZODONE HCL 50 MG TABLET PO SCH (23:04)
[2018-05-03] MEDS: LORAZEPAM 1 MG TABLET PO PRN ×3 (01:37→18:39)
[2018-05-03] MEDS: LEVOTHYROXINE SODIUM 0.05 MG TABLET PO SCH (07:07)
[2018-05-03] MEDS: THIORIDAZINE HCL PO SCH ×3 (08:18→20:31)
[2018-05-03] MEDS: CLONAZEPAM 1 MG TABLET PO SCH ×2 (08:18→20:31)
[2018-05-03] MEDS: VALPROATE SODIUM SYRUP 250 MG/5 ML UDCUP PO SCH ×2 (10:37→22:58)
[2018-05-03] MEDS: OXCARBAZEPINE 300 MG/5 ML SUSP 250ML/BOTTLE PO SCH ×2 (10:37→22:59)
[2018-05-03] MEDS: PSYLLIUM SEED-SF 5.85 GM PACKET PO SCH ×4 (10:37→22:59)
[2018-05-03] MEDS: ENOXAPARIN SODIUM INJ 40 MG/0.4 ML DISP.SYRIN SUBCUT SCH (10:37)
[2018-05-03] MEDS: CLONIDINE 0.2 MG/24 HR PATCH.TDWK TD SCH (17:31)
[2018-05-03] MEDS: TEMAZEPAM 15 MG CAPSULE PO SCH (20:31)
--- NOTE | 2018-05-03 21:49 | PDOC PROGRESS REPORT ---
Subjective Progress Note for:: 05/10/18 Subjective:: Patient seen by the bedside, he is getting more violent, agitated ,banging his head on the bed, requiring restraint, discharge planning yet to find placement for this patient, he was seen by psychiatry so far the recommended medication is not effective ,patient is still very disruptive we will add lorazepam as needed Reason For Visit: HYPOTHERMIA,HYPOTENSION Physical Exam Vital Signs: Temp Pulse Resp BP Pulse Ox 97.6 F 100 16 101/80 100 05/03/18 12:00 05/03/18 12:00 05/03/18 12:00 05/03/18 12:00 05/03/18 12:00 Intake & Output 05/02/18 05/03/18 05/04/18 06:59 06:59 06:59 Intake Total 1366 480 831 Balance 1366 480 831 Weight 80.7 kg General appearance: PRESENT: mild distress Eye exam: PRESENT: PERRLA Cardiovascular exam: PRESENT: +S1, +S2 Murmur grade: 3 Results Laboratory Results: 04/25/18 19:30 04/25/18 19:32 03/24/18 03/24/18 03/25/18 18:45 18:45 00:45 Creatine Kinase 670 H 414 H CK-MB (CK-2) 10.50 H Troponin I < 0.012 03/25/18 03/25/18 03/25/18 00:45 06:50 06:50 Creatine Kinase 318 H CK-MB (CK-2) 6.56 H 5.19 H Troponin I < 0.012 < 0.012 Impressions: Head CT 03/24/18 15:10 IMPRESSION: No acute intracranial changes. No skull fracture. Scalp hematomas. EVIDENCE OF ACUTE STROKE: NO. Chest X-Ray 03/24/18 15:59 IMPRESSION: 1 Low lung volumes. NO ACUTE RADIOGRAPHIC FINDING IN THE CHEST. Assessment & Plan - Diagnosis (1) Hypotension Qualifiers: Hypotension type: unspecified hypotension type Qualified Code(s): I95.9 - Hypotension, unspecified Is this a current diagnosis for this admission?: Yes (2) Hypothermia Qualifiers: Encounter type: subsequent encounter Qualified Code(s): T68.XXXD - Hypothermia, subsequent encounter Is this a current diagnosis for this admission?: Yes (3) Subclinical hypothyroidism Is this a current diagnosis for this admission?: Yes (4) Metabolic encephalopathy Is this a current diagnosis for this admission?: Yes (5) Hyperbilirubinemia Is this a current diagnosis for this admission?: Yes
[2018-05-03] MEDS: TRAZODONE HCL 50 MG TABLET PO SCH (22:59)
[2018-05-04] MEDS: LORAZEPAM 1 MG TABLET PO PRN ×5 (02:49→20:35)
[2018-05-04] MEDS: LEVOTHYROXINE SODIUM 0.05 MG TABLET PO SCH (05:27)
[2018-05-04] MEDS: THIORIDAZINE HCL PO SCH ×3 (08:39→20:35)
[2018-05-04] MEDS: CLONAZEPAM 1 MG TABLET PO SCH ×2 (08:40→20:35)
[2018-05-04] MEDS: ENOXAPARIN SODIUM INJ 40 MG/0.4 ML DISP.SYRIN SUBCUT SCH (11:41)
[2018-05-04] MEDS: VALPROATE SODIUM SYRUP 250 MG/5 ML UDCUP PO SCH ×2 (11:42→21:56)
[2018-05-04] MEDS: OXCARBAZEPINE 300 MG/5 ML SUSP 250ML/BOTTLE PO SCH ×2 (11:42→21:57)
[2018-05-04] MEDS: PSYLLIUM SEED-SF 5.85 GM PACKET PO SCH ×4 (11:42→21:56)
[2018-05-04] MEDS: CLONIDINE 0.2 MG/24 HR PATCH.TDWK TD SCH (17:08)
[2018-05-04] MEDS: TEMAZEPAM 15 MG CAPSULE PO SCH (20:35)
--- NOTE | 2018-05-04 21:00 | PDOC PROGRESS REPORT ---
Subjective Progress Note for:: 05/04/18 Subjective:: Patient still awaiting placement Reason For Visit: HYPOTHERMIA,HYPOTENSION Physical Exam Vital Signs: Temp Pulse Resp BP Pulse Ox 97.7 F 107 H 20 111/54 L 94 05/04/18 20:24 05/04/18 20:24 05/04/18 20:24 05/04/18 20:24 05/04/18 20:24 Intake & Output 05/03/18 05/04/18 05/05/18 06:59 06:59 06:59 Intake Total 480 981 474 Balance 480 981 474 General appearance: PRESENT: no acute distress Eye exam: PRESENT: PERRLA Respiratory exam: PRESENT: clear to auscultation delores Cardiovascular exam: PRESENT: +S1, +S2 Murmur grade: 3 GI/Abdominal exam: PRESENT: soft Results Laboratory Results: 04/25/18 19:30 04/25/18 19:32 03/24/18 03/24/18 03/25/18 18:45 18:45 00:45 Creatine Kinase 670 H 414 H CK-MB (CK-2) 10.50 H Troponin I < 0.012 03/25/18 03/25/18 03/25/18 00:45 06:50 06:50 Creatine Kinase 318 H CK-MB (CK-2) 6.56 H 5.19 H Troponin I < 0.012 < 0.012 Impressions: Head CT 03/24/18 15:10 IMPRESSION: No acute intracranial changes. No skull fracture. Scalp hematomas. EVIDENCE OF ACUTE STROKE: NO. Chest X-Ray 03/24/18 15:59 IMPRESSION: 1 Low lung volumes. NO ACUTE RADIOGRAPHIC FINDING IN THE CHEST. Assessment & Plan - Diagnosis (1) Hypotension Qualifiers: Hypotension type: unspecified hypotension type Qualified Code(s): I95.9 - Hypotension, unspecified Is this a current diagnosis for this admission?: Yes (2) Hypothermia Qualifiers: Encounter type: subsequent encounter Qualified Code(s): T68.XXXD - Hypothermia, subsequent encounter Is this a current diagnosis for this admission?: Yes (3) Subclinical hypothyroidism Is this a current diagnosis for this admission?: Yes (4) Metabolic encephalopathy Is this a current diagnosis for this admission?: Yes (5) Hyperbilirubinemia Is this a current diagnosis for this admission?: Yes
[2018-05-04] MEDS: TRAZODONE HCL 50 MG TABLET PO SCH (21:56)
[2018-05-05] MEDS: LORAZEPAM 1 MG TABLET PO PRN (04:40)
[2018-05-05] MEDS: LEVOTHYROXINE SODIUM 0.05 MG TABLET PO SCH (04:40)
[2018-05-05] MEDS: CLONAZEPAM 1 MG TABLET PO SCH ×2 (07:49→22:53)
[2018-05-05] MEDS: THIORIDAZINE HCL PO SCH ×3 (07:52→22:53)
[2018-05-05] MEDS: PSYLLIUM SEED-SF 5.85 GM PACKET PO SCH ×4 (11:32→22:53)
[2018-05-05] MEDS: VALPROATE SODIUM SYRUP 250 MG/5 ML UDCUP PO SCH ×2 (11:34→22:53)
[2018-05-05] MEDS: OXCARBAZEPINE 300 MG/5 ML SUSP 250ML/BOTTLE PO SCH ×2 (11:34→22:53)
[2018-05-05] MEDS: ENOXAPARIN SODIUM INJ 40 MG/0.4 ML DISP.SYRIN SUBCUT SCH (11:35)
--- NOTE | 2018-05-05 21:14 | PDOC PROGRESS REPORT ---
Subjective Progress Note for:: 05/05/18 Subjective:: Patient still awaiting placement Reason For Visit: HYPOTHERMIA,HYPOTENSION Physical Exam Vital Signs: Temp Pulse Resp BP Pulse Ox 97.5 F 54 L 16 106/65 100 05/05/18 20:53 05/05/18 20:53 05/05/18 20:53 05/05/18 20:53 05/05/18 08:39 Intake & Output 05/04/18 05/05/18 05/06/18 06:59 06:59 06:59 Intake Total 981 1139 581 Balance 981 1139 581 Weight 80.8 kg General appearance: PRESENT: no acute distress Eye exam: PRESENT: PERRLA Respiratory exam: PRESENT: clear to auscultation delores Cardiovascular exam: PRESENT: +S1, +S2 Murmur grade: 3 GI/Abdominal exam: PRESENT: soft Results Laboratory Results: 04/25/18 19:30 04/25/18 19:32 03/24/18 03/24/18 03/25/18 18:45 18:45 00:45 Creatine Kinase 670 H 414 H CK-MB (CK-2) 10.50 H Troponin I < 0.012 03/25/18 03/25/18 03/25/18 00:45 06:50 06:50 Creatine Kinase 318 H CK-MB (CK-2) 6.56 H 5.19 H Troponin I < 0.012 < 0.012 Impressions: Head CT 03/24/18 15:10 IMPRESSION: No acute intracranial changes. No skull fracture. Scalp hematomas. EVIDENCE OF ACUTE STROKE: NO. Chest X-Ray 03/24/18 15:59 IMPRESSION: 1 Low lung volumes. NO ACUTE RADIOGRAPHIC FINDING IN THE CHEST. Assessment & Plan - Diagnosis (1) Hypotension Qualifiers: Hypotension type: unspecified hypotension type Qualified Code(s): I95.9 - Hypotension, unspecified Is this a current diagnosis for this admission?: Yes (2) Hypothermia Qualifiers: Encounter type: subsequent encounter Qualified Code(s): T68.XXXD - Hypothermia, subsequent encounter Is this a current diagnosis for this admission?: Yes (3) Subclinical hypothyroidism Is this a current diagnosis for this admission?: Yes (4) Metabolic encephalopathy Is this a current diagnosis for this admission?: Yes (5) Hyperbilirubinemia Is this a current diagnosis for this admission?: Yes
[2018-05-05] MEDS: TEMAZEPAM 15 MG CAPSULE PO SCH (22:52)
[2018-05-05] MEDS: TRAZODONE HCL 50 MG TABLET PO SCH (22:53)
[2018-05-06] MEDS: LEVOTHYROXINE SODIUM 0.05 MG TABLET PO SCH (06:11)
[2018-05-06] MEDS: CLONAZEPAM 1 MG TABLET PO SCH ×2 (07:34→20:57)
[2018-05-06] MEDS: THIORIDAZINE HCL PO SCH ×3 (07:35→20:57)
[2018-05-06] MEDS: VALPROATE SODIUM SYRUP 250 MG/5 ML UDCUP PO SCH ×2 (10:43→22:14)
[2018-05-06] MEDS: OXCARBAZEPINE 300 MG/5 ML SUSP 250ML/BOTTLE PO SCH ×2 (10:44→22:14)
[2018-05-06] MEDS: PSYLLIUM SEED-SF 5.85 GM PACKET PO SCH ×4 (10:44→22:14)
[2018-05-06] MEDS: ENOXAPARIN SODIUM INJ 40 MG/0.4 ML DISP.SYRIN SUBCUT SCH (10:45)
[2018-05-06] MEDS: LORAZEPAM 1 MG TABLET PO PRN ×2 (11:23→14:59)
[2018-05-06] MEDS: TEMAZEPAM 15 MG CAPSULE PO SCH (20:57)
--- NOTE | 2018-05-06 21:00 | PDOC PROGRESS REPORT ---
Subjective Progress Note for:: 05/06/18 Subjective:: Patient still awaiting placement Reason For Visit: HYPOTHERMIA,HYPOTENSION Physical Exam Vital Signs: Temp Pulse Resp BP Pulse Ox 98.1 F 66 16 104/64 100 05/06/18 19:45 05/06/18 19:45 05/06/18 19:45 05/06/18 19:45 05/06/18 19:45 Intake & Output 05/05/18 05/06/18 05/07/18 06:59 06:59 06:59 Intake Total 1139 799 677 Balance 1139 799 677 Weight 80.8 kg 82.2 kg General appearance: PRESENT: no acute distress Eye exam: PRESENT: PERRLA Respiratory exam: PRESENT: clear to auscultation delores Cardiovascular exam: PRESENT: +S1, +S2 Murmur grade: 3 GI/Abdominal exam: PRESENT: soft Results Laboratory Results: 04/25/18 19:30 04/25/18 19:32 03/24/18 03/24/18 03/25/18 18:45 18:45 00:45 Creatine Kinase 670 H 414 H CK-MB (CK-2) 10.50 H Troponin I < 0.012 03/25/18 03/25/18 03/25/18 00:45 06:50 06:50 Creatine Kinase 318 H CK-MB (CK-2) 6.56 H 5.19 H Troponin I < 0.012 < 0.012 Impressions: Head CT 03/24/18 15:10 IMPRESSION: No acute intracranial changes. No skull fracture. Scalp hematomas. EVIDENCE OF ACUTE STROKE: NO. Chest X-Ray 03/24/18 15:59 IMPRESSION: 1 Low lung volumes. NO ACUTE RADIOGRAPHIC FINDING IN THE CHEST. Assessment & Plan - Diagnosis (1) Hypotension Qualifiers: Hypotension type: unspecified hypotension type Qualified Code(s): I95.9 - Hypotension, unspecified Is this a current diagnosis for this admission?: Yes (2) Hypothermia Qualifiers: Encounter type: subsequent encounter Qualified Code(s): T68.XXXD - Hypothermia, subsequent encounter Is this a current diagnosis for this admission?: Yes (3) Subclinical hypothyroidism Is this a current diagnosis for this admission?: Yes (4) Metabolic encephalopathy Is this a current diagnosis for this admission?: Yes (5) Hyperbilirubinemia Is this a current diagnosis for this admission?: Yes
[2018-05-06] MEDS: TRAZODONE HCL 50 MG TABLET PO SCH (22:14)
[2018-05-07] MEDS: LORAZEPAM 1 MG TABLET PO PRN ×2 (01:09→05:53)
[2018-05-07] MEDS: LEVOTHYROXINE SODIUM 0.05 MG TABLET PO SCH (05:53)
[2018-05-07] MEDS: ENOXAPARIN SODIUM INJ 40 MG/0.4 ML DISP.SYRIN SUBCUT SCH (09:55)
[2018-05-07] MEDS: CLONAZEPAM 1 MG TABLET PO SCH ×2 (09:55→21:36)
[2018-05-07] MEDS: THIORIDAZINE HCL PO SCH ×3 (09:55→21:34)
[2018-05-07] MEDS: OXCARBAZEPINE 300 MG/5 ML SUSP 250ML/BOTTLE PO SCH ×2 (09:56→21:36)
[2018-05-07] MEDS: VALPROATE SODIUM SYRUP 250 MG/5 ML UDCUP PO SCH ×2 (09:56→21:36)
[2018-05-07] MEDS: PSYLLIUM SEED-SF 5.85 GM PACKET PO SCH ×4 (09:56→21:36)
--- NOTE | 2018-05-07 15:11 | PDOC PROGRESS REPORT ---
Subjective Progress Note for:: 05/07/18 Subjective:: Patient still awaiting placement Reason For Visit: HYPOTHERMIA,HYPOTENSION Physical Exam Vital Signs: Temp Pulse Resp BP Pulse Ox 98.1 F 56 L 18 106/61 100 05/06/18 19:45 05/07/18 11:25 05/07/18 11:25 05/07/18 11:25 05/07/18 11:25 Intake & Output 05/06/18 05/07/18 05/08/18 06:59 06:59 06:59 Intake Total 799 857 Balance 799 857 Weight 82.2 kg 70.8 kg General appearance: PRESENT: no acute distress Eye exam: PRESENT: PERRLA Respiratory exam: PRESENT: clear to auscultation delores Cardiovascular exam: PRESENT: +S1, +S2 Murmur grade: 3 GI/Abdominal exam: PRESENT: soft Results Laboratory Results: 04/25/18 19:30 04/25/18 19:32 03/24/18 03/24/18 03/25/18 18:45 18:45 00:45 Creatine Kinase 670 H 414 H CK-MB (CK-2) 10.50 H Troponin I < 0.012 03/25/18 03/25/18 03/25/18 00:45 06:50 06:50 Creatine Kinase 318 H CK-MB (CK-2) 6.56 H 5.19 H Troponin I < 0.012 < 0.012 Impressions: Head CT 03/24/18 15:10 IMPRESSION: No acute intracranial changes. No skull fracture. Scalp hematomas. EVIDENCE OF ACUTE STROKE: NO. Chest X-Ray 03/24/18 15:59 IMPRESSION: 1 Low lung volumes. NO ACUTE RADIOGRAPHIC FINDING IN THE CHEST. Assessment & Plan - Diagnosis (1) Hypotension Qualifiers: Hypotension type: unspecified hypotension type Qualified Code(s): I95.9 - Hypotension, unspecified Is this a current diagnosis for this admission?: Yes (2) Hypothermia Qualifiers: Encounter type: subsequent encounter Qualified Code(s): T68.XXXD - Hypothermia, subsequent encounter Is this a current diagnosis for this admission?: Yes (3) Subclinical hypothyroidism Is this a current diagnosis for this admission?: Yes (4) Metabolic encephalopathy Is this a current diagnosis for this admission?: Yes (5) Hyperbilirubinemia Is this a current diagnosis for this admission?: Yes
[2018-05-07] MEDS: TRAZODONE HCL 50 MG TABLET PO SCH (21:34)
[2018-05-07] MEDS: TEMAZEPAM 15 MG CAPSULE PO SCH (21:36)
[2018-05-07] MEDS ORDERED: NALOXONE HCL INJ/PF 0.4 MG/1 ML SDV ONE (21:45)
[2018-05-08] MEDS: LEVOTHYROXINE SODIUM 0.05 MG TABLET PO SCH (06:23)
[2018-05-08] MEDS: CLONAZEPAM 1 MG TABLET PO SCH ×2 (08:11→20:49)
[2018-05-08] MEDS: THIORIDAZINE HCL PO SCH ×3 (08:11→20:46)
[2018-05-08] MEDS: OXCARBAZEPINE 300 MG/5 ML SUSP 250ML/BOTTLE PO SCH ×2 (11:49→22:31)
[2018-05-08] MEDS: VALPROATE SODIUM SYRUP 250 MG/5 ML UDCUP PO SCH ×2 (11:49→22:31)
[2018-05-08] MEDS: PSYLLIUM SEED-SF 5.85 GM PACKET PO SCH ×4 (11:49→22:31)
[2018-05-08] MEDS: ENOXAPARIN SODIUM INJ 40 MG/0.4 ML DISP.SYRIN SUBCUT SCH (11:50)
--- NOTE | 2018-05-08 16:00 | PDOC PROGRESS REPORT ---
Subjective Progress Note for:: 05/08/18 Subjective:: Patient still awaiting placement Reason For Visit: HYPOTHERMIA,HYPOTENSION Physical Exam Vital Signs: Temp Pulse Resp BP Pulse Ox 97.3 F 53 L 20 98/73 L 100 05/08/18 11:22 05/08/18 11:22 05/08/18 11:22 05/08/18 11:22 05/08/18 11:22 Intake & Output 05/07/18 05/08/18 05/09/18 06:59 06:59 06:59 Intake Total 857 817 621 Balance 857 817 621 Weight 70.8 kg 80.5 kg General appearance: PRESENT: no acute distress Eye exam: PRESENT: PERRLA Respiratory exam: PRESENT: clear to auscultation delores Cardiovascular exam: PRESENT: +S1, +S2 Murmur grade: 3 Results Laboratory Results: 04/25/18 19:30 04/25/18 19:32 03/24/18 03/24/18 03/25/18 18:45 18:45 00:45 Creatine Kinase 670 H 414 H CK-MB (CK-2) 10.50 H Troponin I < 0.012 03/25/18 03/25/18 03/25/18 00:45 06:50 06:50 Creatine Kinase 318 H CK-MB (CK-2) 6.56 H 5.19 H Troponin I < 0.012 < 0.012 Impressions: Head CT 03/24/18 15:10 IMPRESSION: No acute intracranial changes. No skull fracture. Scalp hematomas. EVIDENCE OF ACUTE STROKE: NO. Chest X-Ray 03/24/18 15:59 IMPRESSION: 1 Low lung volumes. NO ACUTE RADIOGRAPHIC FINDING IN THE CHEST. Assessment & Plan - Diagnosis (1) Hypotension Qualifiers: Hypotension type: unspecified hypotension type Qualified Code(s): I95.9 - Hypotension, unspecified Is this a current diagnosis for this admission?: Yes (2) Hypothermia Qualifiers: Encounter type: subsequent encounter Qualified Code(s): T68.XXXD - Hypothermia, subsequent encounter Is this a current diagnosis for this admission?: Yes (3) Subclinical hypothyroidism Is this a current diagnosis for this admission?: Yes (4) Metabolic encephalopathy Is this a current diagnosis for this admission?: Yes (5) Hyperbilirubinemia Is this a current diagnosis for this admission?: Yes
[2018-05-08] MEDS: TEMAZEPAM 15 MG CAPSULE PO SCH (20:47)
[2018-05-08] MEDS: TRAZODONE HCL 50 MG TABLET PO SCH (22:31)
[2018-05-09] MEDS: LEVOTHYROXINE SODIUM 0.05 MG TABLET PO SCH (05:46)
[2018-05-09] MEDS: THIORIDAZINE HCL PO SCH (07:43)
[2018-05-09] MEDS: CLONAZEPAM 1 MG TABLET PO SCH (07:44)
[2018-05-09] MEDS: ENOXAPARIN SODIUM INJ 40 MG/0.4 ML DISP.SYRIN SUBCUT SCH (09:36)
[2018-05-09] MEDS: PSYLLIUM SEED-SF 5.85 GM PACKET PO SCH ×4 (09:37→22:38)
[2018-05-09] MEDS: OXCARBAZEPINE 300 MG/5 ML SUSP 250ML/BOTTLE PO SCH ×2 (09:37→22:38)
[2018-05-09] MEDS: VALPROATE SODIUM SYRUP 250 MG/5 ML UDCUP PO SCH ×2 (09:37→22:38)
[2018-05-09] MEDS: THIORIDAZINE HCL 50 MG TABLET PO SCH ×2 (14:53→22:38)
--- NOTE | 2018-05-09 21:02 | PDOC PROGRESS REPORT ---
Subjective Progress Note for:: 05/09/18 Subjective:: Patient's condition is about the same, he continues to require a sitter, discharge planning is making an effort for placement Reason For Visit: HYPOTHERMIA,HYPOTENSION Physical Exam Vital Signs: Temp Pulse Resp BP Pulse Ox 97.5 F 55 L 18 104/54 L 100 05/09/18 15:51 05/09/18 15:51 05/09/18 15:51 05/09/18 15:51 05/09/18 15:51 Intake & Output 05/08/18 05/09/18 05/10/18 06:59 06:59 06:59 Intake Total 817 739 502 Balance 817 739 502 Weight 80.5 kg 79.5 kg General appearance: PRESENT: no acute distress Eye exam: PRESENT: PERRLA Respiratory exam: PRESENT: clear to auscultation delores Cardiovascular exam: PRESENT: +S1, +S2 Murmur grade: 3 GI/Abdominal exam: PRESENT: soft Neurological exam: PRESENT: alert Results Laboratory Results: 04/25/18 19:30 04/25/18 19:32 03/24/18 03/24/18 03/25/18 18:45 18:45 00:45 Creatine Kinase 670 H 414 H CK-MB (CK-2) 10.50 H Troponin I < 0.012 03/25/18 03/25/18 03/25/18 00:45 06:50 06:50 Creatine Kinase 318 H CK-MB (CK-2) 6.56 H 5.19 H Troponin I < 0.012 < 0.012 Impressions: Head CT 03/24/18 15:10 IMPRESSION: No acute intracranial changes. No skull fracture. Scalp hematomas. EVIDENCE OF ACUTE STROKE: NO. Chest X-Ray 03/24/18 15:59 IMPRESSION: 1 Low lung volumes. NO ACUTE RADIOGRAPHIC FINDING IN THE CHEST. Assessment & Plan - Diagnosis (1) Hypotension Qualifiers: Hypotension type: unspecified hypotension type Qualified Code(s): I95.9 - Hypotension, unspecified Is this a current diagnosis for this admission?: Yes (2) Hypothermia Qualifiers: Encounter type: subsequent encounter Qualified Code(s): T68.XXXD - Hypothermia, subsequent encounter Is this a current diagnosis for this admission?: Yes (3) Subclinical hypothyroidism Is this a current diagnosis for this admission?: Yes (4) Metabolic encephalopathy Is this a current diagnosis for this admission?: Yes (5) Hyperbilirubinemia Is this a current diagnosis for this admission?: Yes
[2018-05-09] MEDS: TRAZODONE HCL 50 MG TABLET PO SCH (22:38)
[2018-05-10] MEDS: LEVOTHYROXINE SODIUM 0.05 MG TABLET PO SCH (06:18)
[2018-05-10] MEDS: ENOXAPARIN SODIUM INJ 40 MG/0.4 ML DISP.SYRIN SUBCUT SCH (10:02)
[2018-05-10] MEDS: OXCARBAZEPINE 300 MG/5 ML SUSP 250ML/BOTTLE PO SCH ×2 (10:02→23:30)
[2018-05-10] MEDS: CLONAZEPAM 1 MG TABLET PO SCH ×2 (10:03→20:06)
[2018-05-10] MEDS: VALPROATE SODIUM SYRUP 250 MG/5 ML UDCUP PO SCH ×2 (10:03→23:31)
[2018-05-10] MEDS: THIORIDAZINE HCL 50 MG TABLET PO SCH ×3 (10:03→20:06)
[2018-05-10] MEDS: PSYLLIUM SEED-SF 5.85 GM PACKET PO SCH ×4 (10:03→23:31)
[2018-05-10] MEDS: CLONIDINE 0.2 MG/24 HR PATCH.TDWK TD SCH (17:55)
[2018-05-10] MEDS: TEMAZEPAM 15 MG CAPSULE PO SCH (20:06)
--- NOTE | 2018-05-10 21:01 | PDOC PROGRESS REPORT ---
Subjective Progress Note for:: 05/10/18 Subjective:: Patient's condition is about the same, he continues to require a sitter, discharge planning is making an effort for placement Reason For Visit: HYPOTHERMIA,HYPOTENSION Physical Exam Vital Signs: Temp Pulse Resp BP Pulse Ox 97.5 F 52 L 16 118/61 100 05/10/18 20:01 05/10/18 20:01 05/10/18 20:01 05/10/18 20:01 05/10/18 20:01 Intake & Output 05/09/18 05/10/18 05/11/18 06:59 06:59 06:59 Intake Total 739 827 857 Balance 739 827 857 Weight 79.5 kg 81.8 kg Eye exam: PRESENT: PERRLA Respiratory exam: PRESENT: clear to auscultation delores Cardiovascular exam: PRESENT: +S2 Murmur grade: 3 GI/Abdominal exam: PRESENT: soft Neurological exam: PRESENT: alert Results Laboratory Results: 04/25/18 19:30 04/25/18 19:32 03/24/18 03/24/18 03/25/18 18:45 18:45 00:45 Creatine Kinase 670 H 414 H CK-MB (CK-2) 10.50 H Troponin I < 0.012 03/25/18 03/25/18 03/25/18 00:45 06:50 06:50 Creatine Kinase 318 H CK-MB (CK-2) 6.56 H 5.19 H Troponin I < 0.012 < 0.012 Impressions: Head CT 03/24/18 15:10 IMPRESSION: No acute intracranial changes. No skull fracture. Scalp hematomas. EVIDENCE OF ACUTE STROKE: NO. Chest X-Ray 03/24/18 15:59 IMPRESSION: 1 Low lung volumes. NO ACUTE RADIOGRAPHIC FINDING IN THE CHEST. Assessment & Plan - Diagnosis (1) Hypotension Qualifiers: Hypotension type: unspecified hypotension type Qualified Code(s): I95.9 - Hypotension, unspecified Is this a current diagnosis for this admission?: Yes (2) Hypothermia Qualifiers: Encounter type: subsequent encounter Qualified Code(s): T68.XXXD - Hypothermia, subsequent encounter Is this a current diagnosis for this admission?: Yes (3) Subclinical hypothyroidism Is this a current diagnosis for this admission?: Yes (4) Metabolic encephalopathy Is this a current diagnosis for this admission?: Yes (5) Hyperbilirubinemia Is this a current diagnosis for this admission?: Yes
[2018-05-10] MEDS: TRAZODONE HCL 50 MG TABLET PO SCH (23:30)
[2018-05-11] MEDS: LEVOTHYROXINE SODIUM 0.05 MG TABLET PO SCH (05:33)
[2018-05-11] MEDS: OXCARBAZEPINE 300 MG/5 ML SUSP 250ML/BOTTLE PO SCH ×2 (09:56→22:53)
[2018-05-11] MEDS: PSYLLIUM SEED-SF 5.85 GM PACKET PO SCH ×4 (09:57→22:54)
[2018-05-11] MEDS: THIORIDAZINE HCL 50 MG TABLET PO SCH ×3 (09:57→22:54)
[2018-05-11] MEDS: CLONAZEPAM 1 MG TABLET PO SCH ×2 (09:57→22:53)
[2018-05-11] MEDS: VALPROATE SODIUM SYRUP 250 MG/5 ML UDCUP PO SCH ×2 (09:58→22:54)
[2018-05-11] MEDS: ENOXAPARIN SODIUM INJ 40 MG/0.4 ML DISP.SYRIN SUBCUT SCH (09:58)
--- NOTE | 2018-05-11 15:07 | PDOC PROGRESS REPORT ---
Subjective Progress Note for:: 05/11/18 Subjective:: Patient's condition is about the same, he continues to require a sitter, discharge planning is making an effort for placement Reason For Visit: HYPOTHERMIA,HYPOTENSION Physical Exam Vital Signs: Temp Pulse Resp BP Pulse Ox 98.5 F 72 20 116/66 98 05/11/18 07:19 05/11/18 07:20 05/11/18 07:19 05/11/18 07:19 05/11/18 07:19 Intake & Output 05/10/18 05/11/18 05/12/18 06:59 06:59 06:59 Intake Total 827 1123 Balance 827 1123 Weight 81.8 kg 84.4 kg General appearance: PRESENT: no acute distress Eye exam: PRESENT: PERRLA Respiratory exam: PRESENT: clear to auscultation delores Cardiovascular exam: PRESENT: +S1, +S2 Murmur grade: 3 Neurological exam: PRESENT: alert Results Laboratory Results: 04/25/18 19:30 04/25/18 19:32 03/24/18 03/24/18 03/25/18 18:45 18:45 00:45 Creatine Kinase 670 H 414 H CK-MB (CK-2) 10.50 H Troponin I < 0.012 03/25/18 03/25/18 03/25/18 00:45 06:50 06:50 Creatine Kinase 318 H CK-MB (CK-2) 6.56 H 5.19 H Troponin I < 0.012 < 0.012 Impressions: Head CT 03/24/18 15:10 IMPRESSION: No acute intracranial changes. No skull fracture. Scalp hematomas. EVIDENCE OF ACUTE STROKE: NO. Chest X-Ray 03/24/18 15:59 IMPRESSION: 1 Low lung volumes. NO ACUTE RADIOGRAPHIC FINDING IN THE CHEST. Assessment & Plan - Diagnosis (1) Hypotension Qualifiers: Hypotension type: unspecified hypotension type Qualified Code(s): I95.9 - Hypotension, unspecified Is this a current diagnosis for this admission?: Yes (2) Hypothermia Qualifiers: Encounter type: subsequent encounter Qualified Code(s): T68.XXXD - Hypothermia, subsequent encounter Is this a current diagnosis for this admission?: Yes (3) Subclinical hypothyroidism Is this a current diagnosis for this admission?: Yes (4) Metabolic encephalopathy Is this a current diagnosis for this admission?: Yes (5) Hyperbilirubinemia Is this a current diagnosis for this admission?: Yes
[2018-05-11] MEDS: TRAZODONE HCL 50 MG TABLET PO SCH (22:52)
[2018-05-11] MEDS: TEMAZEPAM 15 MG CAPSULE PO SCH (22:52)
[2018-05-12] MEDS: LEVOTHYROXINE SODIUM 0.05 MG TABLET PO SCH (06:25)
[2018-05-12] MEDS: THIORIDAZINE HCL 50 MG TABLET PO SCH ×3 (09:51→23:14)
[2018-05-12] MEDS: VALPROATE SODIUM SYRUP 250 MG/5 ML UDCUP PO SCH ×2 (09:51→23:14)
[2018-05-12] MEDS: CLONAZEPAM 1 MG TABLET PO SCH ×2 (09:51→23:14)
[2018-05-12] MEDS: ENOXAPARIN SODIUM INJ 40 MG/0.4 ML DISP.SYRIN SUBCUT SCH (09:52)
[2018-05-12] MEDS: PSYLLIUM SEED-SF 5.85 GM PACKET PO SCH ×4 (09:52→23:14)
[2018-05-12] MEDS: OXCARBAZEPINE 300 MG/5 ML SUSP 250ML/BOTTLE PO SCH ×2 (09:52→23:14)
--- NOTE | 2018-05-12 17:53 | PDOC PROGRESS REPORT ---
Subjective Progress Note for:: 05/12/18 Subjective:: Patient's condition is about the same, he continues to require a sitter, discharge planning is making an effort for placement Reason For Visit: HYPOTHERMIA,HYPOTENSION Physical Exam Vital Signs: Temp Pulse Resp BP Pulse Ox 97.6 F 56 L 17 104/67 100 05/11/18 20:03 05/12/18 15:19 05/12/18 15:19 05/12/18 15:19 05/12/18 15:19 Intake & Output 05/11/18 05/12/18 05/13/18 06:59 06:59 06:59 Intake Total 7208 045 4836 Balance 6646 028 7028 Weight 84.4 kg 83.3 kg General appearance: PRESENT: no acute distress Eye exam: PRESENT: PERRLA Respiratory exam: PRESENT: clear to auscultation delores Cardiovascular exam: PRESENT: +S1, +S2 Murmur grade: 3 Results Laboratory Results: 04/25/18 19:30 04/25/18 19:32 03/24/18 03/24/18 03/25/18 18:45 18:45 00:45 Creatine Kinase 670 H 414 H CK-MB (CK-2) 10.50 H Troponin I < 0.012 03/25/18 03/25/18 03/25/18 00:45 06:50 06:50 Creatine Kinase 318 H CK-MB (CK-2) 6.56 H 5.19 H Troponin I < 0.012 < 0.012 Impressions: Head CT 03/24/18 15:10 IMPRESSION: No acute intracranial changes. No skull fracture. Scalp hematomas. EVIDENCE OF ACUTE STROKE: NO. Chest X-Ray 03/24/18 15:59 IMPRESSION: 1 Low lung volumes. NO ACUTE RADIOGRAPHIC FINDING IN THE CHEST. Assessment & Plan - Diagnosis (1) Hypotension Qualifiers: Hypotension type: unspecified hypotension type Qualified Code(s): I95.9 - Hypotension, unspecified Is this a current diagnosis for this admission?: Yes (2) Hypothermia Qualifiers: Encounter type: subsequent encounter Qualified Code(s): T68.XXXD - Hypothermia, subsequent encounter Is this a current diagnosis for this admission?: Yes (3) Subclinical hypothyroidism Is this a current diagnosis for this admission?: Yes (4) Metabolic encephalopathy Is this a current diagnosis for this admission?: Yes (5) Hyperbilirubinemia Is this a current diagnosis for this admission?: Yes
[2018-05-12] MEDS: TEMAZEPAM 15 MG CAPSULE PO SCH (23:13)
[2018-05-12] MEDS: TRAZODONE HCL 50 MG TABLET PO SCH (23:13)
[2018-05-13] MEDS: LEVOTHYROXINE SODIUM 0.05 MG TABLET PO SCH (05:58)
[2018-05-13] MEDS: THIORIDAZINE HCL 50 MG TABLET PO SCH ×3 (11:20→21:12)
[2018-05-13] MEDS: PSYLLIUM SEED-SF 5.85 GM PACKET PO SCH ×4 (11:20→21:12)
[2018-05-13] MEDS: VALPROATE SODIUM SYRUP 250 MG/5 ML UDCUP PO SCH ×2 (11:20→21:12)
[2018-05-13] MEDS: CLONAZEPAM 1 MG TABLET PO SCH ×2 (11:20→21:12)
[2018-05-13] MEDS: ENOXAPARIN SODIUM INJ 40 MG/0.4 ML DISP.SYRIN SUBCUT SCH (11:21)
[2018-05-13] MEDS: OXCARBAZEPINE 300 MG/5 ML SUSP 250ML/BOTTLE PO SCH ×2 (11:21→21:12)
--- NOTE | 2018-05-13 19:27 | PDOC PROGRESS REPORT ---
Subjective Progress Note for:: 05/13/18 Subjective:: Patient's condition is about the same, he continues to require a sitter, discharge planning is making an effort for placement Reason For Visit: HYPOTHERMIA,HYPOTENSION Physical Exam Vital Signs: Temp Pulse Resp BP Pulse Ox 97.4 F 50 L 20 115/53 L 100 05/13/18 16:00 05/13/18 16:00 05/13/18 16:00 05/13/18 16:00 05/13/18 16:00 Intake & Output 05/12/18 05/13/18 05/14/18 06:59 06:59 06:59 Intake Total 600 1259 260 Balance 600 1259 260 Weight 83.3 kg 83.5 kg General appearance: PRESENT: no acute distress Respiratory exam: PRESENT: clear to auscultation delores Cardiovascular exam: PRESENT: +S1, +S2 Murmur grade: 3 Results Laboratory Results: 04/25/18 19:30 04/25/18 19:32 03/24/18 03/24/18 03/25/18 18:45 18:45 00:45 Creatine Kinase 670 H 414 H CK-MB (CK-2) 10.50 H Troponin I < 0.012 03/25/18 03/25/18 03/25/18 00:45 06:50 06:50 Creatine Kinase 318 H CK-MB (CK-2) 6.56 H 5.19 H Troponin I < 0.012 < 0.012 Impressions: Head CT 03/24/18 15:10 IMPRESSION: No acute intracranial changes. No skull fracture. Scalp hematomas. EVIDENCE OF ACUTE STROKE: NO. Chest X-Ray 03/24/18 15:59 IMPRESSION: 1 Low lung volumes. NO ACUTE RADIOGRAPHIC FINDING IN THE CHEST. Assessment & Plan - Diagnosis (1) Hypotension Qualifiers: Hypotension type: unspecified hypotension type Qualified Code(s): I95.9 - Hypotension, unspecified Is this a current diagnosis for this admission?: Yes (2) Hypothermia Qualifiers: Encounter type: subsequent encounter Qualified Code(s): T68.XXXD - Hypothermia, subsequent encounter Is this a current diagnosis for this admission?: Yes (3) Subclinical hypothyroidism Is this a current diagnosis for this admission?: Yes (4) Metabolic encephalopathy Is this a current diagnosis for this admission?: Yes (5) Hyperbilirubinemia Is this a current diagnosis for this admission?: Yes
[2018-05-13] MEDS: TRAZODONE HCL 50 MG TABLET PO SCH (21:11)
[2018-05-13] MEDS: TEMAZEPAM 15 MG CAPSULE PO SCH (21:12)
[2018-05-14] MEDS: LEVOTHYROXINE SODIUM 0.05 MG TABLET PO SCH (06:31)
[2018-05-14] MEDS: CLONAZEPAM 1 MG TABLET PO SCH ×2 (07:52→21:10)
[2018-05-14] MEDS: THIORIDAZINE HCL 50 MG TABLET PO SCH ×3 (07:52→21:10)
[2018-05-14] MEDS: VALPROATE SODIUM SYRUP 250 MG/5 ML UDCUP PO SCH ×2 (09:51→21:11)
[2018-05-14] MEDS: ENOXAPARIN SODIUM INJ 40 MG/0.4 ML DISP.SYRIN SUBCUT SCH (09:51)
[2018-05-14] MEDS: PSYLLIUM SEED-SF 5.85 GM PACKET PO SCH ×4 (09:51→21:10)
[2018-05-14] MEDS: OXCARBAZEPINE 300 MG/5 ML SUSP 250ML/BOTTLE PO SCH ×2 (09:51→21:10)
--- NOTE | 2018-05-14 14:06 | PDOC PROGRESS REPORT ---
Subjective Progress Note for:: 05/14/18 Subjective:: No new issues so far today. No reported fever or chills. No reported difficulty with breathing. Reason For Visit: HYPOTHERMIA,HYPOTENSION Physical Exam Vital Signs: Temp Pulse Resp BP Pulse Ox 97.4 F 56 L 20 105/61 100 05/14/18 11:56 05/14/18 11:56 05/14/18 11:56 05/14/18 11:56 05/14/18 11:56 Intake & Output 05/13/18 05/14/18 05/15/18 06:59 06:59 06:59 Intake Total 1259 620 Balance 1259 620 Weight 83.5 kg 81.7 kg Physical Exam: General appearance: PRESENT: no acute distress Head exam: PRESENT: atraumatic, normocephalic Mouth exam: PRESENT: moist Respiratory exam: PRESENT: clear to auscultation delores Cardiovascular exam: PRESENT: RRR. ABSENT: diastolic murmur, rubs, systolic murmur Vascular exam: ABSENT: pallor GI/Abdominal exam: PRESENT: normal bowel sounds, soft. ABSENT: organomegaly, tenderness Extremities exam: ABSENT: pedal edema Musculoskeletal exam: PRESENT: normal inspection Neurological exam: PRESENT: alert, other - not verbally communicative and not following instruction Skin exam: PRESENT: dry, warm Murmur grade: 3 Results Laboratory Results: 04/25/18 19:30 04/25/18 19:32 03/24/18 03/24/18 03/25/18 18:45 18:45 00:45 Creatine Kinase 670 H 414 H CK-MB (CK-2) 10.50 H Troponin I < 0.012 03/25/18 03/25/18 03/25/18 00:45 06:50 06:50 Creatine Kinase 318 H CK-MB (CK-2) 6.56 H 5.19 H Troponin I < 0.012 < 0.012 Impressions: Head CT 03/24/18 15:10 IMPRESSION: No acute intracranial changes. No skull fracture. Scalp hematomas. EVIDENCE OF ACUTE STROKE: NO. Chest X-Ray 03/24/18 15:59 IMPRESSION: 1 Low lung volumes. NO ACUTE RADIOGRAPHIC FINDING IN THE CHEST. Assessment & Plan - Diagnosis (1) Subclinical hypothyroidism Is this a current diagnosis for this admission?: Yes Plan: See covering attending physician orders. (2) Hypothermia Qualifiers: Encounter type: initial encounter Qualified Code(s): T68.XXXA - Hypothermia , initial encounter Is this a current diagnosis for this admission?: Yes Plan: See covering attending physician orders. (3) Autism Is this a current diagnosis for this admission?: Yes Plan: See covering attending physician orders. - Time Time Spent with patient: 25-34 minutes Medications reviewed and adjusted accordingly: Yes Anticipated discharge: SNF Within: Other - Inpatient Certification Based on my medical assessment, after consideration of the patient's comorbidities, presenting symptoms, or acuity I expect that the services needed warrant INPATIENT care.: Yes I certify that my determination is in accordance with my understanding of Medicare's requirements for reasonable and necessary INPATIENT services [42 CFR 412.3e].: Yes Medical Necessity: Need Close Monitoring Due to Risk of Patient Decompensation, Need For IV Fluids, Risk of Complication if Not Cared For in Hospital Post Hospital Care: D/C or Transfer Summary - Plan Summary Plan Summary: See covering attending physician orders.
[2018-05-14] MEDS: TEMAZEPAM 15 MG CAPSULE PO SCH (21:10)
[2018-05-14] MEDS: TRAZODONE HCL 50 MG TABLET PO SCH (21:11)
[2018-05-15] MEDS: LEVOTHYROXINE SODIUM 0.05 MG TABLET PO SCH (05:59)
[2018-05-15] MEDS: CLONAZEPAM 1 MG TABLET PO SCH ×2 (08:32→21:19)
[2018-05-15] MEDS: THIORIDAZINE HCL 50 MG TABLET PO SCH ×3 (08:32→21:20)
[2018-05-15] MEDS: ENOXAPARIN SODIUM INJ 40 MG/0.4 ML DISP.SYRIN SUBCUT SCH (10:57)
[2018-05-15] MEDS: PSYLLIUM SEED-SF 5.85 GM PACKET PO SCH ×4 (10:57→21:20)
[2018-05-15] MEDS: VALPROATE SODIUM SYRUP 250 MG/5 ML UDCUP PO SCH ×2 (10:58→21:20)
[2018-05-15] MEDS: OXCARBAZEPINE 300 MG/5 ML SUSP 250ML/BOTTLE PO SCH ×2 (10:58→21:20)
--- NOTE | 2018-05-15 17:02 | PDOC PROGRESS REPORT ---
Subjective Progress Note for:: 05/15/18 Subjective:: No reported fever or chills. No reported difficulty with breathing. No vomiting or diarrhea. Oral intake satisfactory. Reason For Visit: HYPOTHERMIA,HYPOTENSION Physical Exam Vital Signs: Temp Pulse Resp BP Pulse Ox 97.7 F 61 18 99/85 L 100 05/15/18 11:28 05/15/18 11:28 05/15/18 11:28 05/15/18 11:28 05/15/18 11:28 Intake & Output 05/14/18 05/15/18 05/16/18 06:59 06:59 06:59 Intake Total 620 548 Balance 620 548 Weight 81.7 kg 82.9 kg Physical Exam: General appearance: PRESENT: no acute distress Head exam: PRESENT: atraumatic, normocephalic Mouth exam: PRESENT: moist Respiratory exam: PRESENT: clear to auscultation delores Cardiovascular exam: PRESENT: RRR. ABSENT: diastolic murmur, rubs, systolic murmur Vascular exam: ABSENT: pallor GI/Abdominal exam: PRESENT: normal bowel sounds, soft. ABSENT: organomegaly, tenderness Extremities exam: ABSENT: pedal edema Musculoskeletal exam: PRESENT: normal inspection Neurological exam: PRESENT: alert, other - not verbally communicative and not following instruction Skin exam: PRESENT: dry, warm Murmur grade: 3 Results Laboratory Results: 04/25/18 19:30 04/25/18 19:32 03/24/18 03/24/18 03/25/18 18:45 18:45 00:45 Creatine Kinase 670 H 414 H CK-MB (CK-2) 10.50 H Troponin I < 0.012 03/25/18 03/25/18 03/25/18 00:45 06:50 06:50 Creatine Kinase 318 H CK-MB (CK-2) 6.56 H 5.19 H Troponin I < 0.012 < 0.012 Impressions: Head CT 03/24/18 15:10 IMPRESSION: No acute intracranial changes. No skull fracture. Scalp hematomas. EVIDENCE OF ACUTE STROKE: NO. Chest X-Ray 03/24/18 15:59 IMPRESSION: 1 Low lung volumes. NO ACUTE RADIOGRAPHIC FINDING IN THE CHEST. Assessment & Plan - Diagnosis (1) Subclinical hypothyroidism Is this a current diagnosis for this admission?: Yes (2) Hypothermia Qualifiers: Encounter type: initial encounter Qualified Code(s): T68.XXXA - Hypothermia , initial encounter Is this a current diagnosis for this admission?: Yes (3) Autism Is this a current diagnosis for this admission?: Yes - Time Time Spent with patient: 25-34 minutes Medications reviewed and adjusted accordingly: Yes Anticipated discharge: SNF Within: Other - Inpatient Certification Based on my medical assessment, after consideration of the patient's comorbidities, presenting symptoms, or acuity I expect that the services needed warrant INPATIENT care.: Yes I certify that my determination is in accordance with my understanding of Medicare's requirements for reasonable and necessary INPATIENT services [42 CFR 412.3e].: Yes Medical Necessity: Need Close Monitoring Due to Risk of Patient Decompensation, Risk of Complication if Not Cared For in Hospital Post Hospital Care: D/C or Transfer Summary - Plan Summary Plan Summary: See covering attending physician orders.
[2018-05-15] MEDS: TEMAZEPAM 15 MG CAPSULE PO SCH (21:19)
[2018-05-15] MEDS: TRAZODONE HCL 50 MG TABLET PO SCH (21:19)
[2018-05-16] MEDS: LEVOTHYROXINE SODIUM 0.05 MG TABLET PO SCH (05:29)
[2018-05-16] MEDS: CLONAZEPAM 1 MG TABLET PO SCH ×2 (08:28→21:01)
[2018-05-16] MEDS: THIORIDAZINE HCL 50 MG TABLET PO SCH ×3 (08:29→21:01)
[2018-05-16] MEDS: VALPROATE SODIUM SYRUP 250 MG/5 ML UDCUP PO SCH ×2 (09:30→21:02)
[2018-05-16] MEDS: ENOXAPARIN SODIUM INJ 40 MG/0.4 ML DISP.SYRIN SUBCUT SCH (09:31)
[2018-05-16] MEDS: OXCARBAZEPINE 300 MG/5 ML SUSP 250ML/BOTTLE PO SCH ×2 (09:33→21:03)
[2018-05-16] MEDS: PSYLLIUM SEED-SF 5.85 GM PACKET PO SCH ×5 (09:37→21:02)
[2018-05-16] MEDS: TEMAZEPAM 15 MG CAPSULE PO SCH (21:01)
[2018-05-16] MEDS: TRAZODONE HCL 50 MG TABLET PO SCH (21:02)
--- NOTE | 2018-05-16 21:51 | PDOC PROGRESS REPORT ---
Subjective Progress Note for:: 05/16/18 Subjective:: Patient's condition is about the same, he continues to require a sitter, discharge planning is making an effort for placement Reason For Visit: HYPOTHERMIA,HYPOTENSION Physical Exam Vital Signs: Temp Pulse Resp BP Pulse Ox 98.3 F 59 L 15 113/60 97 05/16/18 19:46 05/16/18 19:46 05/16/18 19:46 05/16/18 19:46 05/16/18 19:46 Intake & Output 05/15/18 05/16/18 05/17/18 06:59 06:59 06:59 Intake Total 548 992 975 Balance 548 992 975 Weight 82.9 kg 82.6 kg General appearance: PRESENT: no acute distress Eye exam: PRESENT: PERRLA Respiratory exam: PRESENT: clear to auscultation delores Cardiovascular exam: PRESENT: +S1, +S2 Murmur grade: 3 GI/Abdominal exam: PRESENT: soft Results Laboratory Results: 04/25/18 19:30 04/25/18 19:32 03/24/18 03/24/18 03/25/18 18:45 18:45 00:45 Creatine Kinase 670 H 414 H CK-MB (CK-2) 10.50 H Troponin I < 0.012 03/25/18 03/25/18 03/25/18 00:45 06:50 06:50 Creatine Kinase 318 H CK-MB (CK-2) 6.56 H 5.19 H Troponin I < 0.012 < 0.012 Impressions: Head CT 03/24/18 15:10 IMPRESSION: No acute intracranial changes. No skull fracture. Scalp hematomas. EVIDENCE OF ACUTE STROKE: NO. Chest X-Ray 03/24/18 15:59 IMPRESSION: 1 Low lung volumes. NO ACUTE RADIOGRAPHIC FINDING IN THE CHEST. Assessment & Plan - Diagnosis (1) Hypotension Qualifiers: Hypotension type: unspecified hypotension type Qualified Code(s): I95.9 - Hypotension, unspecified Is this a current diagnosis for this admission?: Yes (2) Hypothermia Qualifiers: Encounter type: subsequent encounter Qualified Code(s): T68.XXXD - Hypothermia, subsequent encounter Is this a current diagnosis for this admission?: Yes (3) Subclinical hypothyroidism Is this a current diagnosis for this admission?: Yes (4) Metabolic encephalopathy Is this a current diagnosis for this admission?: Yes (5) Hyperbilirubinemia Is this a current diagnosis for this admission?: Yes
[2018-05-17] MEDS: LEVOTHYROXINE SODIUM 0.05 MG TABLET PO SCH (05:10)
[2018-05-17] MEDS: THIORIDAZINE HCL 50 MG TABLET PO SCH ×3 (10:28→22:56)
[2018-05-17] MEDS: OXCARBAZEPINE 300 MG/5 ML SUSP 250ML/BOTTLE PO SCH ×2 (10:29→22:55)
[2018-05-17] MEDS: VALPROATE SODIUM SYRUP 250 MG/5 ML UDCUP PO SCH ×2 (10:29→22:56)
[2018-05-17] MEDS: PSYLLIUM SEED-SF 5.85 GM PACKET PO SCH ×4 (10:29→22:56)
[2018-05-17] MEDS: ENOXAPARIN SODIUM INJ 40 MG/0.4 ML DISP.SYRIN SUBCUT SCH (10:39)
[2018-05-17] MEDS: CLONIDINE 0.2 MG/24 HR PATCH.TDWK TD SCH (18:45)
--- NOTE | 2018-05-17 21:05 | PDOC PROGRESS REPORT ---
Subjective Progress Note for:: 05/17/18 Subjective:: Patient's condition is about the same, he continues to require a sitter, discharge planning is making an effort for placement Reason For Visit: HYPOTHERMIA,HYPOTENSION Physical Exam Vital Signs: Temp Pulse Resp BP Pulse Ox 98.7 F 68 16 120/63 99 05/17/18 16:00 05/17/18 16:00 05/17/18 16:00 05/17/18 16:00 05/17/18 16:00 Intake & Output 05/16/18 05/17/18 05/18/18 06:59 06:59 06:59 Intake Total 992 1522 Balance 992 1522 Weight 82.6 kg 82.1 kg General appearance: PRESENT: no acute distress Eye exam: PRESENT: PERRLA Respiratory exam: PRESENT: clear to auscultation delores Cardiovascular exam: PRESENT: +S1, +S2 Murmur grade: 3 GI/Abdominal exam: PRESENT: soft Neurological exam: PRESENT: alert Results Laboratory Results: 04/25/18 19:30 04/25/18 19:32 03/24/18 03/24/18 03/25/18 18:45 18:45 00:45 Creatine Kinase 670 H 414 H CK-MB (CK-2) 10.50 H Troponin I < 0.012 03/25/18 03/25/18 03/25/18 00:45 06:50 06:50 Creatine Kinase 318 H CK-MB (CK-2) 6.56 H 5.19 H Troponin I < 0.012 < 0.012 Impressions: Head CT 03/24/18 15:10 IMPRESSION: No acute intracranial changes. No skull fracture. Scalp hematomas. EVIDENCE OF ACUTE STROKE: NO. Chest X-Ray 03/24/18 15:59 IMPRESSION: 1 Low lung volumes. NO ACUTE RADIOGRAPHIC FINDING IN THE CHEST. Assessment & Plan - Diagnosis (1) Hypotension Qualifiers: Hypotension type: unspecified hypotension type Qualified Code(s): I95.9 - Hypotension, unspecified Is this a current diagnosis for this admission?: Yes (2) Hypothermia Qualifiers: Encounter type: subsequent encounter Qualified Code(s): T68.XXXD - Hypothermia, subsequent encounter Is this a current diagnosis for this admission?: Yes (3) Subclinical hypothyroidism Is this a current diagnosis for this admission?: Yes (4) Metabolic encephalopathy Is this a current diagnosis for this admission?: Yes (5) Hyperbilirubinemia Is this a current diagnosis for this admission?: Yes
[2018-05-17] MEDS: TRAZODONE HCL 50 MG TABLET PO SCH (22:56)
[2018-05-18] MEDS: LEVOTHYROXINE SODIUM 0.05 MG TABLET PO SCH (05:12)
[2018-05-18] MEDS: PSYLLIUM SEED-SF 5.85 GM PACKET PO SCH ×4 (10:31→23:43)
[2018-05-18] MEDS: ENOXAPARIN SODIUM INJ 40 MG/0.4 ML DISP.SYRIN SUBCUT SCH (10:32)
[2018-05-18] MEDS: VALPROATE SODIUM SYRUP 250 MG/5 ML UDCUP PO SCH ×2 (10:32→23:31)
[2018-05-18] MEDS: THIORIDAZINE HCL 50 MG TABLET PO SCH ×3 (10:32→23:30)
[2018-05-18] MEDS: OXCARBAZEPINE 300 MG/5 ML SUSP 250ML/BOTTLE PO SCH ×2 (10:34→23:42)
--- NOTE | 2018-05-18 20:48 | PDOC PROGRESS REPORT ---
Subjective Progress Note for:: 05/18/18 Subjective:: Patient's condition is about the same, he continues to require a sitter, discharge planning is making an effort for placement Reason For Visit: HYPOTHERMIA,HYPOTENSION Physical Exam Vital Signs: Temp Pulse Resp BP Pulse Ox 98.6 F 65 16 116/68 100 05/18/18 16:02 05/18/18 16:02 05/18/18 16:02 05/18/18 16:02 05/18/18 16:02 Intake & Output 05/17/18 05/18/18 05/19/18 06:59 06:59 06:59 Intake Total 1522 1000 Balance 1522 1000 Weight 82.1 kg General appearance: PRESENT: no acute distress Eye exam: PRESENT: PERRLA Respiratory exam: PRESENT: clear to auscultation delores Cardiovascular exam: PRESENT: +S1, +S2 Murmur grade: 3 GI/Abdominal exam: PRESENT: soft Results Laboratory Results: 04/25/18 19:30 04/25/18 19:32 03/24/18 03/24/18 03/25/18 18:45 18:45 00:45 Creatine Kinase 670 H 414 H CK-MB (CK-2) 10.50 H Troponin I < 0.012 03/25/18 03/25/18 03/25/18 00:45 06:50 06:50 Creatine Kinase 318 H CK-MB (CK-2) 6.56 H 5.19 H Troponin I < 0.012 < 0.012 Impressions: Head CT 03/24/18 15:10 IMPRESSION: No acute intracranial changes. No skull fracture. Scalp hematomas. EVIDENCE OF ACUTE STROKE: NO. Chest X-Ray 03/24/18 15:59 IMPRESSION: 1 Low lung volumes. NO ACUTE RADIOGRAPHIC FINDING IN THE CHEST. Assessment & Plan - Diagnosis (1) Hypotension Qualifiers: Hypotension type: unspecified hypotension type Qualified Code(s): I95.9 - Hypotension, unspecified Is this a current diagnosis for this admission?: Yes (2) Hypothermia Qualifiers: Encounter type: subsequent encounter Qualified Code(s): T68.XXXD - Hypothermia, subsequent encounter Is this a current diagnosis for this admission?: Yes (3) Subclinical hypothyroidism Is this a current diagnosis for this admission?: Yes (4) Metabolic encephalopathy Is this a current diagnosis for this admission?: Yes (5) Hyperbilirubinemia Is this a current diagnosis for this admission?: Yes
[2018-05-18] MEDS: TRAZODONE HCL 50 MG TABLET PO SCH (23:31)
[2018-05-19] MEDS: LEVOTHYROXINE SODIUM 0.05 MG TABLET PO SCH (05:58)
[2018-05-19] MEDS: OXCARBAZEPINE 300 MG/5 ML SUSP 250ML/BOTTLE PO SCH (11:05)
[2018-05-19] MEDS: THIORIDAZINE HCL 50 MG TABLET PO SCH ×2 (11:06→17:53)
[2018-05-19] MEDS: VALPROATE SODIUM SYRUP 250 MG/5 ML UDCUP PO SCH (11:06)
[2018-05-19] MEDS: PSYLLIUM SEED-SF 5.85 GM PACKET PO SCH ×3 (11:06→17:24)
[2018-05-19] MEDS: ENOXAPARIN SODIUM INJ 40 MG/0.4 ML DISP.SYRIN SUBCUT SCH (11:06)
--- NOTE | 2018-05-19 20:59 | PDOC PROGRESS REPORT ---
Subjective Progress Note for:: 05/19/18 Subjective:: Patient's condition is about the same, he continues to require a sitter, discharge planning is making an effort for placement Reason For Visit: HYPOTHERMIA,HYPOTENSION Physical Exam Vital Signs: Temp Pulse Resp BP Pulse Ox 97.2 F 78 20 128/73 H 100 05/19/18 19:23 05/19/18 19:23 05/19/18 19:23 05/19/18 19:23 05/19/18 11:55 Intake & Output 05/18/18 05/19/18 05/20/18 06:59 06:59 06:59 Intake Total 1000 468 Balance 1000 468 Weight 83.9 kg General appearance: PRESENT: no acute distress Eye exam: PRESENT: PERRLA Respiratory exam: PRESENT: clear to auscultation delores Cardiovascular exam: PRESENT: +S1, +S2 Murmur grade: 3 GI/Abdominal exam: PRESENT: soft Neurological exam: PRESENT: alert Results Laboratory Results: 04/25/18 19:30 04/25/18 19:32 03/24/18 03/24/18 03/25/18 18:45 18:45 00:45 Creatine Kinase 670 H 414 H CK-MB (CK-2) 10.50 H Troponin I < 0.012 03/25/18 03/25/18 03/25/18 00:45 06:50 06:50 Creatine Kinase 318 H CK-MB (CK-2) 6.56 H 5.19 H Troponin I < 0.012 < 0.012 Impressions: Head CT 03/24/18 15:10 IMPRESSION: No acute intracranial changes. No skull fracture. Scalp hematomas. EVIDENCE OF ACUTE STROKE: NO. Chest X-Ray 03/24/18 15:59 IMPRESSION: 1 Low lung volumes. NO ACUTE RADIOGRAPHIC FINDING IN THE CHEST. Assessment & Plan - Diagnosis (1) Hypotension Qualifiers: Hypotension type: unspecified hypotension type Qualified Code(s): I95.9 - Hypotension, unspecified Is this a current diagnosis for this admission?: Yes (2) Hypothermia Qualifiers: Encounter type: subsequent encounter Qualified Code(s): T68.XXXD - Hypothermia, subsequent encounter Is this a current diagnosis for this admission?: Yes (3) Subclinical hypothyroidism Is this a current diagnosis for this admission?: Yes (4) Metabolic encephalopathy Is this a current diagnosis for this admission?: Yes (5) Hyperbilirubinemia Is this a current diagnosis for this admission?: Yes
[2018-05-20] MEDS: THIORIDAZINE HCL 50 MG TABLET PO SCH ×4 (01:51→21:11)
[2018-05-20] MEDS: VALPROATE SODIUM SYRUP 250 MG/5 ML UDCUP PO SCH ×3 (01:51→21:12)
[2018-05-20] MEDS: PSYLLIUM SEED-SF 5.85 GM PACKET PO SCH ×5 (01:52→21:11)
[2018-05-20] MEDS: OXCARBAZEPINE 300 MG/5 ML SUSP 250ML/BOTTLE PO SCH ×3 (01:52→21:07)
[2018-05-20] MEDS: TRAZODONE HCL 50 MG TABLET PO SCH ×2 (01:52→21:13)
[2018-05-20] MEDS: LEVOTHYROXINE SODIUM 0.05 MG TABLET PO SCH (06:19)
[2018-05-20] MEDS: ENOXAPARIN SODIUM INJ 40 MG/0.4 ML DISP.SYRIN SUBCUT SCH (10:48)
--- NOTE | 2018-05-20 21:02 | PDOC PROGRESS REPORT ---
Subjective Progress Note for:: 05/20/18 Subjective:: Patient's condition is about the same, he continues to require a sitter, discharge planning is making an effort for placement Reason For Visit: HYPOTHERMIA,HYPOTENSION Physical Exam Vital Signs: Temp Pulse Resp BP Pulse Ox 98.8 F 91 18 109/62 96 05/20/18 15:46 05/20/18 15:46 05/20/18 15:46 05/20/18 15:46 05/20/18 15:46 Intake & Output 05/19/18 05/20/18 05/21/18 06:59 06:59 06:59 Intake Total 1000 718 444 Balance 1000 718 444 Weight 83.9 kg General appearance: PRESENT: no acute distress Eye exam: PRESENT: PERRLA Respiratory exam: PRESENT: clear to auscultation delores Cardiovascular exam: PRESENT: +S1, +S2 Murmur grade: 3 Results Laboratory Results: 04/25/18 19:30 04/25/18 19:32 03/24/18 03/24/18 03/25/18 18:45 18:45 00:45 Creatine Kinase 670 H 414 H CK-MB (CK-2) 10.50 H Troponin I < 0.012 03/25/18 03/25/18 03/25/18 00:45 06:50 06:50 Creatine Kinase 318 H CK-MB (CK-2) 6.56 H 5.19 H Troponin I < 0.012 < 0.012 Impressions: Head CT 03/24/18 15:10 IMPRESSION: No acute intracranial changes. No skull fracture. Scalp hematomas. EVIDENCE OF ACUTE STROKE: NO. Chest X-Ray 03/24/18 15:59 IMPRESSION: 1 Low lung volumes. NO ACUTE RADIOGRAPHIC FINDING IN THE CHEST. Assessment & Plan - Diagnosis (1) Hypotension Qualifiers: Hypotension type: unspecified hypotension type Qualified Code(s): I95.9 - Hypotension, unspecified Is this a current diagnosis for this admission?: Yes (2) Hypothermia Qualifiers: Encounter type: subsequent encounter Qualified Code(s): T68.XXXD - Hypothermia, subsequent encounter Is this a current diagnosis for this admission?: Yes (3) Subclinical hypothyroidism Is this a current diagnosis for this admission?: Yes (4) Metabolic encephalopathy Is this a current diagnosis for this admission?: Yes (5) Hyperbilirubinemia Is this a current diagnosis for this admission?: Yes
[2018-05-21] MEDS: LEVOTHYROXINE SODIUM 0.05 MG TABLET PO SCH (05:12)
[2018-05-21] MEDS: THIORIDAZINE HCL 50 MG TABLET PO SCH ×3 (08:26→19:57)
[2018-05-21] MEDS: VALPROATE SODIUM SYRUP 250 MG/5 ML UDCUP PO SCH ×2 (09:18→23:12)
[2018-05-21] MEDS: OXCARBAZEPINE 300 MG/5 ML SUSP 250ML/BOTTLE PO SCH ×2 (09:19→23:12)
[2018-05-21] MEDS: PSYLLIUM SEED-SF 5.85 GM PACKET PO SCH ×4 (09:19→23:13)
[2018-05-21] MEDS: ENOXAPARIN SODIUM INJ 40 MG/0.4 ML DISP.SYRIN SUBCUT SCH (09:22)
[2018-05-21] MEDS: TEMAZEPAM 15 MG CAPSULE PO SCH (19:58)
[2018-05-21] MEDS: CLONAZEPAM 1 MG TABLET PO SCH (19:58)
[2018-05-21] MEDS: TRAZODONE HCL 50 MG TABLET PO SCH (23:14)
[2018-05-22] MEDS: LEVOTHYROXINE SODIUM 0.05 MG TABLET PO SCH (05:34)
[2018-05-22] MEDS: THIORIDAZINE HCL 50 MG TABLET PO SCH ×3 (07:45→21:51)
[2018-05-22] MEDS: CLONAZEPAM 1 MG TABLET PO SCH ×2 (07:46→21:50)
[2018-05-22] MEDS: VALPROATE SODIUM SYRUP 250 MG/5 ML UDCUP PO SCH ×2 (09:10→21:53)
[2018-05-22] MEDS: OXCARBAZEPINE 300 MG/5 ML SUSP 250ML/BOTTLE PO SCH ×2 (09:11→21:53)
[2018-05-22] MEDS: PSYLLIUM SEED-SF 5.85 GM PACKET PO SCH ×4 (09:14→22:02)
[2018-05-22] MEDS: ENOXAPARIN SODIUM INJ 40 MG/0.4 ML DISP.SYRIN SUBCUT SCH (09:14)
--- NOTE | 2018-05-22 15:50 | PDOC PROGRESS REPORT ---
Subjective Progress Note for:: 05/22/18 Subjective:: Patient still with here for placement remains agitated and restrained also requires a sitter Reason For Visit: HYPOTHERMIA,HYPOTENSION Physical Exam Vital Signs: Temp Pulse Resp BP Pulse Ox 98.4 F 63 16 99/65 L 100 05/22/18 08:00 05/22/18 08:00 05/22/18 08:00 05/22/18 08:00 05/22/18 08:00 Intake & Output 05/21/18 05/22/18 05/23/18 06:59 06:59 06:59 Intake Total 764 1470 Balance 764 1470 General appearance: PRESENT: no acute distress Eye exam: PRESENT: PERRLA Respiratory exam: PRESENT: clear to auscultation delores Cardiovascular exam: PRESENT: +S1, +S2 Murmur grade: 3 GI/Abdominal exam: PRESENT: soft Neurological exam: PRESENT: alert Results Laboratory Results: 04/25/18 19:30 04/25/18 19:32 03/24/18 03/24/18 03/25/18 18:45 18:45 00:45 Creatine Kinase 670 H 414 H CK-MB (CK-2) 10.50 H Troponin I < 0.012 03/25/18 03/25/18 03/25/18 00:45 06:50 06:50 Creatine Kinase 318 H CK-MB (CK-2) 6.56 H 5.19 H Troponin I < 0.012 < 0.012 Impressions: Head CT 03/24/18 15:10 IMPRESSION: No acute intracranial changes. No skull fracture. Scalp hematomas. EVIDENCE OF ACUTE STROKE: NO. Chest X-Ray 03/24/18 15:59 IMPRESSION: 1 Low lung volumes. NO ACUTE RADIOGRAPHIC FINDING IN THE CHEST. Assessment & Plan - Diagnosis (1) Hypotension Qualifiers: Hypotension type: unspecified hypotension type Qualified Code(s): I95.9 - Hypotension, unspecified Is this a current diagnosis for this admission?: Yes (2) Hypothermia Qualifiers: Encounter type: subsequent encounter Qualified Code(s): T68.XXXD - Hypothermia, subsequent encounter Is this a current diagnosis for this admission?: Yes (3) Subclinical hypothyroidism Is this a current diagnosis for this admission?: Yes (4) Metabolic encephalopathy Is this a current diagnosis for this admission?: Yes (5) Hyperbilirubinemia Is this a current diagnosis for this admission?: Yes
[2018-05-22] MEDS: TRAZODONE HCL 50 MG TABLET PO SCH (21:52)
[2018-05-22] MEDS: TEMAZEPAM 15 MG CAPSULE PO SCH (21:55)
[2018-05-23] MEDS: LEVOTHYROXINE SODIUM 0.05 MG TABLET PO SCH (06:09)
[2018-05-23] MEDS: CLONAZEPAM 1 MG TABLET PO SCH ×2 (07:56→22:20)
[2018-05-23] MEDS: THIORIDAZINE HCL 50 MG TABLET PO SCH ×3 (07:57→22:14)
[2018-05-23] MEDS: VALPROATE SODIUM SYRUP 250 MG/5 ML UDCUP PO SCH ×2 (10:00→22:15)
[2018-05-23] MEDS: OXCARBAZEPINE 300 MG/5 ML SUSP 250ML/BOTTLE PO SCH ×2 (10:02→22:11)
[2018-05-23] MEDS: ENOXAPARIN SODIUM INJ 40 MG/0.4 ML DISP.SYRIN SUBCUT SCH (10:03)
[2018-05-23] MEDS: PSYLLIUM SEED-SF 5.85 GM PACKET PO SCH ×4 (10:09→22:12)
[2018-05-23] MEDS: TRAZODONE HCL 50 MG TABLET PO SCH (22:15)
[2018-05-23] MEDS: TEMAZEPAM 15 MG CAPSULE PO SCH (22:17)
[2018-05-24] MEDS: THIORIDAZINE HCL 50 MG TABLET PO SCH ×3 (08:42→21:23)
[2018-05-24] MEDS: CLONAZEPAM 1 MG TABLET PO SCH ×2 (08:42→21:22)
[2018-05-24] MEDS: OXCARBAZEPINE 300 MG/5 ML SUSP 250ML/BOTTLE PO SCH ×2 (10:03→21:23)
[2018-05-24] MEDS: VALPROATE SODIUM SYRUP 250 MG/5 ML UDCUP PO SCH ×2 (10:03→21:28)
[2018-05-24] MEDS: CLONIDINE 0.2 MG/24 HR PATCH.TDWK TD SCH (17:56)
[2018-05-24] MEDS: TEMAZEPAM 15 MG CAPSULE PO SCH (21:23)
[2018-05-24] MEDS: TRAZODONE HCL 50 MG TABLET PO SCH (21:23)
--- NOTE | 2018-05-24 21:48 | PDOC PROGRESS REPORT ---
Subjective Progress Note for:: 05/24/18 Subjective:: Patient was seen by the bedside still awaiting a bed for placement, he has , a sitter, the restraint forms were signed Reason For Visit: HYPOTHERMIA,HYPOTENSION Physical Exam Vital Signs: Temp Pulse Resp BP Pulse Ox 97.4 F 79 16 134/93 H 100 05/24/18 10:00 05/24/18 10:00 05/24/18 10:00 05/24/18 10:00 05/24/18 10:00 Intake & Output 05/23/18 05/24/18 05/25/18 06:59 06:59 06:59 Intake Total 1500 1389 480 Balance 1500 1389 480 Weight 77.8 kg 78.2 kg General appearance: PRESENT: no acute distress Eye exam: PRESENT: PERRLA Respiratory exam: PRESENT: clear to auscultation delores Cardiovascular exam: PRESENT: +S1, +S2 Murmur grade: 3 Neurological exam: PRESENT: alert Results Laboratory Results: 04/25/18 19:30 04/25/18 19:32 03/24/18 03/24/18 03/25/18 18:45 18:45 00:45 Creatine Kinase 670 H 414 H CK-MB (CK-2) 10.50 H Troponin I < 0.012 03/25/18 03/25/18 03/25/18 00:45 06:50 06:50 Creatine Kinase 318 H CK-MB (CK-2) 6.56 H 5.19 H Troponin I < 0.012 < 0.012 Impressions: Head CT 03/24/18 15:10 IMPRESSION: No acute intracranial changes. No skull fracture. Scalp hematomas. EVIDENCE OF ACUTE STROKE: NO. Chest X-Ray 03/24/18 15:59 IMPRESSION: 1 Low lung volumes. NO ACUTE RADIOGRAPHIC FINDING IN THE CHEST. Assessment & Plan - Diagnosis (1) Hypotension Qualifiers: Hypotension type: unspecified hypotension type Qualified Code(s): I95.9 - Hypotension, unspecified Is this a current diagnosis for this admission?: Yes (2) Hypothermia Qualifiers: Encounter type: subsequent encounter Qualified Code(s): T68.XXXD - Hypothermia, subsequent encounter Is this a current diagnosis for this admission?: Yes (3) Subclinical hypothyroidism Is this a current diagnosis for this admission?: Yes (4) Metabolic encephalopathy Is this a current diagnosis for this admission?: Yes (5) Hyperbilirubinemia Is this a current diagnosis for this admission?: Yes
[2018-05-25] MEDS: CLONAZEPAM 1 MG TABLET PO SCH ×2 (07:38→20:38)
[2018-05-25] MEDS: THIORIDAZINE HCL 50 MG TABLET PO SCH ×3 (07:38→20:39)
[2018-05-25] MEDS: OXCARBAZEPINE 300 MG/5 ML SUSP 250ML/BOTTLE PO SCH ×2 (09:50→22:09)
[2018-05-25] MEDS: VALPROATE SODIUM SYRUP 250 MG/5 ML UDCUP PO SCH ×2 (10:54→22:09)
--- NOTE | 2018-05-25 17:47 | PDOC PROGRESS REPORT ---
Subjective Progress Note for:: 05/25/18 Subjective:: Patient was seen by the bedside still awaiting a bed for placement, he has , a sitter, the restraint forms were signed Reason For Visit: HYPOTHERMIA,HYPOTENSION Physical Exam Vital Signs: Temp Pulse Resp BP Pulse Ox 97.4 F 62 15 115/69 100 05/25/18 15:20 05/25/18 15:20 05/25/18 15:20 05/25/18 15:20 05/25/18 15:20 Intake & Output 05/24/18 05/25/18 05/26/18 06:59 06:59 06:59 Intake Total 1389 480 Balance 1389 480 Weight 78.2 kg 78.7 kg General appearance: PRESENT: no acute distress Eye exam: PRESENT: PERRLA Respiratory exam: PRESENT: clear to auscultation delores Cardiovascular exam: PRESENT: +S1, +S2 Murmur grade: 3 GI/Abdominal exam: PRESENT: soft Neurological exam: PRESENT: alert Results Laboratory Results: 04/25/18 19:30 04/25/18 19:32 03/24/18 03/24/18 03/25/18 18:45 18:45 00:45 Creatine Kinase 670 H 414 H CK-MB (CK-2) 10.50 H Troponin I < 0.012 03/25/18 03/25/18 03/25/18 00:45 06:50 06:50 Creatine Kinase 318 H CK-MB (CK-2) 6.56 H 5.19 H Troponin I < 0.012 < 0.012 Impressions: Head CT 03/24/18 15:10 IMPRESSION: No acute intracranial changes. No skull fracture. Scalp hematomas. EVIDENCE OF ACUTE STROKE: NO. Chest X-Ray 03/24/18 15:59 IMPRESSION: 1 Low lung volumes. NO ACUTE RADIOGRAPHIC FINDING IN THE CHEST. Assessment & Plan - Diagnosis (1) Hypotension Qualifiers: Hypotension type: unspecified hypotension type Qualified Code(s): I95.9 - Hypotension, unspecified Is this a current diagnosis for this admission?: Yes (2) Hypothermia Qualifiers: Encounter type: subsequent encounter Qualified Code(s): T68.XXXD - Hypothermia, subsequent encounter Is this a current diagnosis for this admission?: Yes (3) Subclinical hypothyroidism Is this a current diagnosis for this admission?: Yes (4) Metabolic encephalopathy Is this a current diagnosis for this admission?: Yes (5) Hyperbilirubinemia Is this a current diagnosis for this admission?: Yes
[2018-05-25] MEDS: TEMAZEPAM 15 MG CAPSULE PO SCH (20:38)
[2018-05-25] MEDS: TRAZODONE HCL 50 MG TABLET PO SCH (22:10)
[2018-05-26] MEDS: CLONAZEPAM 1 MG TABLET PO SCH ×2 (10:57→22:01)
[2018-05-26] MEDS: THIORIDAZINE HCL 50 MG TABLET PO SCH ×3 (10:57→22:00)
[2018-05-26] MEDS: VALPROATE SODIUM SYRUP 250 MG/5 ML UDCUP PO SCH ×2 (10:58→22:01)
[2018-05-26] MEDS: OXCARBAZEPINE 300 MG/5 ML SUSP 250ML/BOTTLE PO SCH ×2 (10:59→22:02)
--- NOTE | 2018-05-26 20:56 | PDOC PROGRESS REPORT ---
Subjective Progress Note for:: 05/26/18 Subjective:: Patient was seen by the bedside still awaiting a bed for placement, he has , a sitter, the restraint forms were signed Reason For Visit: HYPOTHERMIA,HYPOTENSION Physical Exam Vital Signs: Temp Pulse Resp BP Pulse Ox 97.4 F 61 18 98/64 L 93 05/26/18 12:53 05/26/18 12:53 05/26/18 12:53 05/26/18 12:53 05/25/18 20:11 Intake & Output 05/25/18 05/26/18 05/27/18 06:59 06:59 06:59 Intake Total 480 886 Balance 480 886 Weight 78.7 kg 80.8 kg Eye exam: PRESENT: PERRLA Respiratory exam: PRESENT: clear to auscultation delores Cardiovascular exam: PRESENT: +S1, +S2 Murmur grade: 3 Neurological exam: PRESENT: alert Results Laboratory Results: 04/25/18 19:30 04/25/18 19:32 03/24/18 03/24/18 03/25/18 18:45 18:45 00:45 Creatine Kinase 670 H 414 H CK-MB (CK-2) 10.50 H Troponin I < 0.012 03/25/18 03/25/18 03/25/18 00:45 06:50 06:50 Creatine Kinase 318 H CK-MB (CK-2) 6.56 H 5.19 H Troponin I < 0.012 < 0.012 Impressions: Head CT 03/24/18 15:10 IMPRESSION: No acute intracranial changes. No skull fracture. Scalp hematomas. EVIDENCE OF ACUTE STROKE: NO. Chest X-Ray 03/24/18 15:59 IMPRESSION: 1 Low lung volumes. NO ACUTE RADIOGRAPHIC FINDING IN THE CHEST. Assessment & Plan - Diagnosis (1) Hypotension Qualifiers: Hypotension type: unspecified hypotension type Qualified Code(s): I95.9 - Hypotension, unspecified Is this a current diagnosis for this admission?: Yes (2) Hypothermia Qualifiers: Encounter type: subsequent encounter Qualified Code(s): T68.XXXD - Hypothermia, subsequent encounter Is this a current diagnosis for this admission?: Yes (3) Subclinical hypothyroidism Is this a current diagnosis for this admission?: Yes (4) Metabolic encephalopathy Is this a current diagnosis for this admission?: Yes (5) Hyperbilirubinemia Is this a current diagnosis for this admission?: Yes
[2018-05-26] MEDS: TEMAZEPAM 15 MG CAPSULE PO SCH (22:01)
[2018-05-26] MEDS: TRAZODONE HCL 50 MG TABLET PO SCH (22:01)
[2018-05-27] MEDS: CLONAZEPAM 1 MG TABLET PO SCH ×2 (07:59→21:33)
[2018-05-27] MEDS: THIORIDAZINE HCL 50 MG TABLET PO SCH ×3 (07:59→21:32)
[2018-05-27] MEDS: VALPROATE SODIUM SYRUP 250 MG/5 ML UDCUP PO SCH ×2 (11:15→21:30)
[2018-05-27] MEDS: OXCARBAZEPINE 300 MG/5 ML SUSP 250ML/BOTTLE PO SCH ×2 (11:15→21:27)
--- NOTE | 2018-05-27 20:34 | PDOC PROGRESS REPORT ---
Subjective Progress Note for:: 05/27/18 Subjective:: Patient was seen by the bedside still awaiting a bed for placement, he has , a sitter, the restraint forms were signed Reason For Visit: HYPOTHERMIA,HYPOTENSION Physical Exam Vital Signs: Temp Pulse Resp BP Pulse Ox 97.4 F 53 L 20 113/58 L 90 L 05/27/18 11:41 05/27/18 11:41 05/27/18 11:41 05/27/18 11:41 05/27/18 11:41 Intake & Output 05/26/18 05/27/18 05/28/18 06:59 06:59 06:59 Intake Total 886 384 Balance 886 384 Weight 80.8 kg 78.2 kg General appearance: PRESENT: no acute distress Eye exam: PRESENT: PERRLA Respiratory exam: PRESENT: clear to auscultation delores Cardiovascular exam: PRESENT: +S1, +S2 Murmur grade: 3 Results Laboratory Results: 04/25/18 19:30 04/25/18 19:32 03/24/18 03/24/18 03/25/18 18:45 18:45 00:45 Creatine Kinase 670 H 414 H CK-MB (CK-2) 10.50 H Troponin I < 0.012 03/25/18 03/25/18 03/25/18 00:45 06:50 06:50 Creatine Kinase 318 H CK-MB (CK-2) 6.56 H 5.19 H Troponin I < 0.012 < 0.012 Impressions: Head CT 03/24/18 15:10 IMPRESSION: No acute intracranial changes. No skull fracture. Scalp hematomas. EVIDENCE OF ACUTE STROKE: NO. Chest X-Ray 03/24/18 15:59 IMPRESSION: 1 Low lung volumes. NO ACUTE RADIOGRAPHIC FINDING IN THE CHEST. Assessment & Plan - Diagnosis (1) Hypotension Qualifiers: Hypotension type: unspecified hypotension type Qualified Code(s): I95.9 - Hypotension, unspecified Is this a current diagnosis for this admission?: Yes (2) Hypothermia Qualifiers: Encounter type: subsequent encounter Qualified Code(s): T68.XXXD - Hypothermia, subsequent encounter Is this a current diagnosis for this admission?: Yes (3) Subclinical hypothyroidism Is this a current diagnosis for this admission?: Yes (4) Metabolic encephalopathy Is this a current diagnosis for this admission?: Yes (5) Hyperbilirubinemia Is this a current diagnosis for this admission?: Yes
[2018-05-27] MEDS: TEMAZEPAM 15 MG CAPSULE PO SCH (21:32)
[2018-05-27] MEDS: TRAZODONE HCL 50 MG TABLET PO SCH (21:33)
[2018-05-28] MEDS: OXCARBAZEPINE 300 MG/5 ML SUSP 250ML/BOTTLE PO SCH ×2 (09:48→22:44)
[2018-05-28] MEDS: CLONAZEPAM 1 MG TABLET PO SCH (09:48)
[2018-05-28] MEDS: THIORIDAZINE HCL 50 MG TABLET PO SCH ×3 (09:48→20:59)
[2018-05-28] MEDS: VALPROATE SODIUM SYRUP 250 MG/5 ML UDCUP PO SCH ×2 (09:48→22:44)
--- NOTE | 2018-05-28 16:30 | PDOC PROGRESS REPORT ---
Subjective Progress Note for:: 05/28/18 Subjective:: He continues to require a sitter Reason For Visit: HYPOTHERMIA,HYPOTENSION Physical Exam Vital Signs: Temp Pulse Resp BP Pulse Ox 97.6 F 62 16 105/64 100 05/28/18 15:38 05/28/18 15:38 05/28/18 15:38 05/28/18 15:38 05/28/18 15:38 Intake & Output 05/27/18 05/28/18 05/29/18 06:59 06:59 06:59 Intake Total 494 Balance 494 Weight 78.2 kg 77.6 kg General appearance: PRESENT: no acute distress Eye exam: PRESENT: PERRLA Respiratory exam: PRESENT: clear to auscultation delores Cardiovascular exam: PRESENT: +S1, +S2 Murmur grade: 3 GI/Abdominal exam: PRESENT: soft Neurological exam: PRESENT: alert Results Laboratory Results: 04/25/18 19:30 04/25/18 19:32 03/24/18 03/24/18 03/25/18 18:45 18:45 00:45 Creatine Kinase 670 H 414 H CK-MB (CK-2) 10.50 H Troponin I < 0.012 03/25/18 03/25/18 03/25/18 00:45 06:50 06:50 Creatine Kinase 318 H CK-MB (CK-2) 6.56 H 5.19 H Troponin I < 0.012 < 0.012 Impressions: Head CT 03/24/18 15:10 IMPRESSION: No acute intracranial changes. No skull fracture. Scalp hematomas. EVIDENCE OF ACUTE STROKE: NO. Chest X-Ray 03/24/18 15:59 IMPRESSION: 1 Low lung volumes. NO ACUTE RADIOGRAPHIC FINDING IN THE CHEST. Assessment & Plan - Diagnosis (1) Hypotension Qualifiers: Hypotension type: unspecified hypotension type Qualified Code(s): I95.9 - Hypotension, unspecified Is this a current diagnosis for this admission?: Yes (2) Hypothermia Qualifiers: Encounter type: subsequent encounter Qualified Code(s): T68.XXXD - Hypothermia, subsequent encounter Is this a current diagnosis for this admission?: Yes (3) Subclinical hypothyroidism Is this a current diagnosis for this admission?: Yes (4) Metabolic encephalopathy Is this a current diagnosis for this admission?: Yes (5) Hyperbilirubinemia Is this a current diagnosis for this admission?: Yes
[2018-05-28 17:13] LABS: ABSOLUTE EOSINOPHILS # (AUTO) 0.1 10^3/uL (0.0-0.6); ABSOLUTE LYMPHOCYTES (AUTO) 2.2 10^3/uL (0.5-4.7); ABSOLUTE NEUT (AUTO) 3.1 10^3/uL (1.7-8.2); BASOPHILS % (AUTO) 0.3 % (0-2); EOSINOPHILS % (AUTO) 1.1 % (0-6); HEMATOCRIT 42.9 % (37.9-51.0); HEMOGLOBIN 14.3 g/dL (13.5-17.0); LYMPHOCYTES % (AUTO) 34.4 % (13-45); MEAN CORPUSCULAR HEMOGLOBIN 28.4 pg (27.0-33.4); MEAN CORPUSCULAR HGB CONC 33.5 g/dL (32.0-36.0); MEAN CORPUSCULAR VOLUME 85 fl (80-97); MONOCYTES % (AUTO) 15.1 % (3-13); PLATELET COUNT 290 10^3/uL (150-450); RED BLOOD COUNT 5.06 10^6/uL (4.35-5.55); RED CELL DISTRIBUTION WIDTH 15.4 % (11.5-14.0); SEGMENTED NEUTROPHILS % (AUTO) 49.1 % (42-78); TOTAL CELLS COUNTED % (AUTO) 100 %; WHITE BLOOD COUNT 6.3 10^3/uL (4.0-10.5)
[2018-05-28 17:30] LABS: ALANINE AMINOTRANSFERASE 36 U/L (21-72); ALBUMIN 4.3 g/dL (3.5-5.0); ALKALINE PHOSPHATASE 80 U/L (38-126); ANION GAP 13 (5-19); ASPARTATE AMINO TRANSFERASE 20 U/L (17-59); BILIRUBIN,DIRECT 0.2 mg/dL (0.0-0.4); BILIRUBIN,TOTAL 0.2 mg/dL (0.2-1.3); BLOOD UREA NITROGEN 13 mg/dL (7-20); CALCIUM 9.9 mg/dL (8.4-10.2); CARBON DIOXIDE 29 mmol/L (22-30); CHLORIDE 98 mmol/L (98-107); GLUCOSE 81 mg/dL (75-110); POTASSIUM 4.7 mmol/L (3.6-5.0); SODIUM 140.3 mmol/L (137-145); TOTAL PROTEIN 7.5 g/dL (6.3-8.2)
[2018-05-28] MEDS ORDERED: TEMAZEPAM 15 MG CAPSULE PO ONE (21:00)
[2018-05-28] MEDS ORDERED: CLONAZEPAM 1 MG TABLET PO ONE (21:00)
[2018-05-28] MEDS: TRAZODONE HCL 50 MG TABLET PO SCH (22:44)
[2018-05-29] MEDS: CLONAZEPAM 1 MG TABLET PO SCH ×2 (09:40→21:32)
[2018-05-29] MEDS: VALPROATE SODIUM SYRUP 250 MG/5 ML UDCUP PO SCH ×2 (09:41→21:32)
[2018-05-29] MEDS: OXCARBAZEPINE 300 MG/5 ML SUSP 250ML/BOTTLE PO SCH ×2 (09:41→21:32)
[2018-05-29] MEDS: THIORIDAZINE HCL 50 MG TABLET PO SCH ×3 (09:41→21:32)
--- NOTE | 2018-05-29 13:57 | PDOC PROGRESS REPORT ---
Subjective Progress Note for:: 05/29/18 Subjective:: Patient has no new complaint, I was told by the nurses he has a place to go by wednesday Reason For Visit: HYPOTHERMIA,HYPOTENSION Physical Exam Vital Signs: Temp Pulse Resp BP Pulse Ox 97.4 F 47 L 16 105/52 L 100 05/29/18 07:26 05/29/18 07:26 05/29/18 07:26 05/29/18 07:26 05/28/18 19:56 Intake & Output 05/28/18 05/29/18 05/30/18 06:59 06:59 06:59 Intake Total 494 620 Balance 494 620 Weight 77.6 kg 78.4 kg General appearance: PRESENT: no acute distress Eye exam: PRESENT: PERRLA Respiratory exam: PRESENT: clear to auscultation delores Cardiovascular exam: PRESENT: +S1, +S2 Murmur grade: 3 GI/Abdominal exam: PRESENT: soft Neurological exam: PRESENT: alert Results Laboratory Results: 05/28/18 16:36 05/28/18 16:36 05/28/18 05/28/18 16:36 16:36 WBC 6.3 RBC 5.06 Hgb 14.3 Hct 42.9 MCV 85 MCH 28.4 MCHC 33.5 RDW 15.4 H Plt Count 290 Seg Neutrophils % 49.1 Lymphocytes % 34.4 Monocytes % 15.1 H Eosinophils % 1.1 Basophils % 0.3 Absolute Neutrophils 3.1 Absolute Lymphocytes 2.2 Absolute Monocytes 1.0 Absolute Eosinophils 0.1 Absolute Basophils 0.0 Sodium 140.3 Potassium 4.7 Chloride 98 Carbon Dioxide 29 Anion Gap 13 BUN 13 Creatinine 0.75 Est GFR ( Amer) > 60 Est GFR (Non-Af Amer) > 60 Glucose 81 Calcium 9.9 Total Bilirubin 0.2 AST 20 ALT 36 Alkaline Phosphatase 80 Total Protein 7.5 Albumin 4.3 03/24/18 03/24/18 03/25/18 18:45 18:45 00:45 Creatine Kinase 670 H 414 H CK-MB (CK-2) 10.50 H Troponin I < 0.012 03/25/18 03/25/18 03/25/18 00:45 06:50 06:50 Creatine Kinase 318 H CK-MB (CK-2) 6.56 H 5.19 H Troponin I < 0.012 < 0.012 Impressions: Head CT 05/31/18 15:10 IMPRESSION: No acute intracranial changes. No skull fracture. Scalp hematomas. EVIDENCE OF ACUTE STROKE: NO. Chest X-Ray 03/24/18 15:59 IMPRESSION: 1 Low lung volumes. NO ACUTE RADIOGRAPHIC FINDING IN THE CHEST. Assessment & Plan - Diagnosis (1) Hypotension Qualifiers: Hypotension type: unspecified hypotension type Qualified Code(s): I95.9 - Hypotension, unspecified Is this a current diagnosis for this admission?: Yes (2) Hypothermia Qualifiers: Encounter type: subsequent encounter Qualified Code(s): T68.XXXD - Hypothermia, subsequent encounter Is this a current diagnosis for this admission?: Yes (3) Subclinical hypothyroidism Is this a current diagnosis for this admission?: Yes (4) Metabolic encephalopathy Is this a current diagnosis for this admission?: Yes (5) Hyperbilirubinemia Is this a current diagnosis for this admission?: Yes
[2018-05-29] MEDS: TEMAZEPAM 15 MG CAPSULE PO SCH (21:33)
[2018-05-29] MEDS: TRAZODONE HCL 50 MG TABLET PO SCH (21:33)
[2018-05-30] MEDS: CLONAZEPAM 1 MG TABLET PO SCH ×2 (09:23→20:43)
[2018-05-30] MEDS: THIORIDAZINE HCL 50 MG TABLET PO SCH ×3 (09:23→20:43)
[2018-05-30] MEDS: VALPROATE SODIUM SYRUP 250 MG/5 ML UDCUP PO SCH ×2 (09:23→22:30)
[2018-05-30] MEDS: OXCARBAZEPINE 300 MG/5 ML SUSP 250ML/BOTTLE PO SCH ×2 (09:25→22:30)
[2018-05-30] MEDS: TEMAZEPAM 15 MG CAPSULE PO SCH (20:42)
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
[2018-05-30] MEDS: TRAZODONE HCL 50 MG TABLET PO SCH (22:30)
[2018-05-31 00:12] VITALS: BP 112/69
[2018-05-31] MEDS: THIORIDAZINE HCL 50 MG TABLET PO SCH (09:24)
[2018-05-31] MEDS: VALPROATE SODIUM SYRUP 250 MG/5 ML UDCUP PO SCH (09:24)
[2018-05-31] MEDS: CLONAZEPAM 1 MG TABLET PO SCH (09:24)
[2018-05-31] MEDS: OXCARBAZEPINE 300 MG/5 ML SUSP 250ML/BOTTLE PO SCH (09:24)
== END 2018-05-31 14:57 | DRG 314 ==
LOC: ER 14:12 → EH 18:40 → 3N 23:19 → 4S 04-13 11:06
PROVIDERS: ADMIT Internal Medicine; ATTEND Internal Medicine
DX: I95.9 Hypotension, unspecified (principal); G93.41 Metabolic encephalopathy; F84.0 Autistic disorder; E03.9 Hypothyroidism, unspecified; E86.1 Hypovolemia; R29.6 Repeated falls; R45.6 Violent behavior; G40.909 Epilepsy, unspecified, not intractable, without status epilepticus; F91.8 Other conduct disorders; Z95.5 Presence of coronary angioplasty implant and graft; R68.0 Hypothermia, not associated with low environmental temperature; E80.7 Disorder of bilirubin metabolism, unspecified; S00.83XA Contusion of other part of head, initial encounter; S20.212A Contusion of left front wall of thorax, initial encounter; S10.93XA Contusion of unspecified part of neck, initial encounter; S00.03XA Contusion of scalp, initial encounter; S01.81XD Laceration without foreign body of other part of head, subsequent encounter; Y33.XXXA Other specified events, undetermined intent, initial encounter; Y92.199 Unspecified place in other specified residential institution as the place of occurrence of the external cause; D72.829 Elevated white blood cell count, unspecified; F91.1 Conduct disorder, childhood-onset type; Z79.899 Other long term (current) drug therapy; Z75.1 Person awaiting admission to adequate facility elsewhere; Z78.1 Physical restraint status
CPT/HCPCS: 36415; 51701; 70450; 71045; 80048; 80053; 80164; 82140; 82150; 82550; 82553; 82803; 83605; 83690; 84439; 84443; 84484; 85025; 85027; 85610; 85730; 87040; 87077; 87086; 87186; 93005; 93010; 99285; J1630; J1650; J2060; J3490; J7030